=== PATIENT | female | born 1960 | race Caucasian/White ===

== ENCOUNTER → 2017-09-26 08:41 | Outpatient (CLI) | payer OTHER, SELFPAY ==
[2017-09-26 09:37] LABS: Cholesterol 237 mg/dL (200); Glucose 99 mg/dL (70-110); High Density Lipoprotein 89 mg/dL; Triglycerides 105 mg/dL; Very Low Density Lipoprotein 21 mg/dL (5-40)
== END ==
PROVIDERS: Family Provider Family Medicine; PCP Family Medicine; Visit Provider Family Medicine
DX: Z13.220 Encounter for screening for lipoid disorders (principal); Z13.1 Encounter for screening for diabetes mellitus
CPT/HCPCS: 36415; 80061; 82947

== ENCOUNTER 2019-07-05 08:10 | Emergency (ER) | payer OTHER, SELFPAY ==
[2019-07-05 08:11] VITALS: BP 130/76; PULSE 83; RESP 14; TEMP 36.4; O2SAT 97; BMI 25.7
--- NOTE | 2019-07-05 08:26 | EKG12_ITS ---
Test Reason : CP Blood Pressure : / mmHG Vent. Rate : 093 BPM Atrial Rate : 093 BPM P-R Int : 132 ms QRS Dur : 084 ms QT Int : 352 ms P-R-T Axes : 064 026 023 degrees QTc Int : 437 ms Normal sinus rhythm Possible Left atrial enlargement Borderline ECG Confirmed by DILMA CRAMER, YEYO ([id number]), sound editor SAMSON PEREZ ([id number]) on 07/11/2019 2:32:51 PM Referred By: TRA Confirmed By:YEYO PERERA MD
--- NOTE | 2019-07-05 08:27 | ED.DCSUM_ITS ---
- ER Visit Summary Date of Service: 07/05/19 Chief Complaint: Left chest and back pain History of Present Illness: The patient is a 58 F who presents to the emergency department via EMS with a left-sided chest and back pain. Prehospital EKG was reviewed and was a normal sinus rhythm. Patient states that several days ago she began to have a URI. She notes that yesterday my body did not feel good. She states that she had a discomfort in her left anterior neck but not soreness. Today at approximately 0730 she was leaving for work and developed a sharp pain in her back that radiated around her side into the left breast. It is worse with movement of arm and torso, deep breathing, and palpation. It is been constant. No shortness of breath nausea vomiting or sweating. Physical Examination: Afebrile vital signs are stable Gen: Well-nourished well-developed Head: Normocephalic atraumatic Eyes: Perrl EOMI ENT: TMs clear no rhinorrhea moist mucous membranes Neck: Supple no lymphadenopathy no JVD nontender CVS: Regular rate rhythm no murmurs normal S1-S2 Respiratory: No distress clear to auscultation bilaterally left mid thoracic ribs are tender to palpation both anteriorly, posteriorly, and mid axillary. Reduces her pain Abdomen: Soft nontender nondistended normal bowel sounds no masses Back: Nontender Extremity: Nontender no edema Skin: Normal color no rash Neuro: alert orientated ?3 CN II-XII intact normal strength sensation Psych: Normal affect normal mood Test Results: EKG done in the department shows a normal sinus rhythm at a rate of 93 without ectopy or concerning features for ACS. White count is normal. Troponin is negative. D-dimer is within normal limits. Chest x-ray shows no effusion, pneumonia, obvious rib deformity and demonstrates a normal mediastinal silhouette. Emergency Department Course and Treatment: Patient received a dose of Toradol. As this is reproducible and with the above work-up I think this most likely muscular skeletal. Impression: 1. Musculoskeletal chest pain This note was generated with [employer]ver[employer] dictation software. It may contain incorrect words, spelling, and punctuation that were not noted in review of the chart prior to signing ED Disposition - Plan for ED Patient: Disposition: Home or Assisted Living Instructions: CHEST PAIN, NonCardiac Prescriptions: cycloBENZAPRine HCl [Flexeril] 10 mg PO TID PRN #15 tab PRN Reason: chest wall pain Transmission Status: Pending to [facility] Ibuprofen [Motrin] 600 mg PO Q6H PRN PRN #28 tab PRN Reason: pain Transmission Status: Pending to [facility] #30 Referrals: Mauricio Velez [Primary Care Provider] - 1 Week if not improving
[2019-07-05 08:36] LABS: Absolute Lymphocyte Count 4.46 X10^3/uL (0.83-4.51); Absolute Neutrophil Count 4.1 X10^3/uL (2.0-7.7); Basophil# 0.04 X10^3/uL; Basophil% 0.4 % (0-1); Eosinophil# 0.28 X10^3/uL; Hematocrit 43.7 % (37-47); Hemoglobin 15.5 g/dL (12.0-15.0); Lymphocyte # 4.46 X10^3/ul (4.0); Lymphocyte % 47.9 % (19-41); Mean Corp Hgb Conc 35.5 g/dL (32-36); Mean Corpuscular Hgb 35.3 pg (27.0-32.0); Mean Corpuscular Volume 99.5 fL (81-99); Mean Platelet Vol. 9.3 fl (6.2-12.0); Monocyte# 0.39 X10^3/uL; Monocyte% 4.2 % (0-10); NRBC Flagged by Analyzer 0 % (0-5); Neutrophil # 4.13 X10^3/uL (2.7-7.7); Neutrophil % 44.3 % (47-70); Platelet Count 251 K/mm3 (150-450); RBC Distribution Width CV 11.9 % (11.6-14.6); RBC Distribution Width SD 43.5 fl (35.1-43.9); Red Blood Count 4.39 M/mm3 (4.2-5.4); White Blood Count 9.3 K/mm3 (4.4-11.0)
--- NOTE | 2019-07-05 08:40 | RAD_ITS ---
STUDY: X-RAY CHEST REASON FOR EXAM: Female, 58 years old. Chest pain. TECHNIQUE: AP and lateral views of the chest. COMPARISON: None. FINDINGS: EKG electrodes are seen. Minimal increased markings at the lung bases slightly more prominent on the left side suggestive of mild bibasilar atelectasis. There is no demonstrated pleural abnormality. Normal size heart. Normal mediastinum and dawood. Normal visualized pulmonary arteries. There is atherosclerotic tortuosity of the aortic arch and descending thoracic aorta. Normal visualized thoracic spine. Normal visualized ribs, clavicles, and shoulders. There is no demonstrated abnormality of the visualized soft tissue structures of the upper abdomen. RAD/Chest PA and Lateral IMPRESSION: Mild increased markings at the lung bases suggestive of mild degree of bibasilar atelectasis. Electronically Signed: Mathew Olivarez, at 9:00 EST , Service support ,
[2019-07-05 08:47] LABS: Anion Gap 6 (5-15); BUN 12 mg/dL (7-18); BUN/Creat Ratio 13.8 RATIO (10-20); Calcium,Total 9.4 mg/dL (8.5-10.1); Chloride 107 mmol/L (98-107); Creatinine, Serum 0.87 mg/dL (0.55-1.02); EST Glomerular Filtration Rate 71 mL/min (>60); Est Glom Filt Rate - Afr Amer 85 mL/min (>60); Estimated Creatinine Clearance 52.54 ml/min; Glucose 116 mg/dL (74-106); Sodium Level 139 mmol/L (136-145)
[2019-07-05] MEDS: Ketorolac 30 MG/ML Syringe IV (08:51)
[2019-07-05 08:56] LABS: D-Dimer Quantitative (DVT/PE) < 0.27 FEU/ug/m (0.27-0.49)
[2019-07-05 10:04] VITALS: BP 137/68; PULSE 71; RESP 15; O2SAT 98
== END 2019-07-05 10:05 | disposition home or self-care (01) ==
PROVIDERS: Emergency Provider Emergency Medicine; Family Provider Family Medicine; PCP Family Medicine
DX: R07.89 Other chest pain (principal); M54.9 Dorsalgia, unspecified; J34.89 Other specified disorders of nose and nasal sinuses; R05 Cough; Z72.0 Tobacco use
CPT/HCPCS: 36415; 71046; 80048; 84484; 85025; 85379; 93005; 96374; 99285

== ENCOUNTER → 2023-03-23 | Outpatient (CLI) | payer OTHER, SELFPAY ==
[2023-03-23 13:10] LABS: ALB/GLOB Ratio 1.2 RATIO (0.9-2.4); AST(SGOT) 33 U/L (15-37); Alanine Aminotransfer ALT/SGPT 38 U/L (13-56); Albumin, Serum 4.2 g/dL (3.2-5.0); Alkaline Phosphatase 84 U/L (45-117); Anion Gap 5 (5-15); BUN 11 mg/dL (7-18); BUN/Creat Ratio 10.7 RATIO (10-20); Calcium,Total 10.2 mg/dL (8.5-10.1); Chloride 101 mmol/L (98-107); Creatinine, Serum 1.03 mg/dL (0.55-1.02); EST Glomerular Filtration Rate 57 mL/min (>60); Est Glom Filt Rate - Afr Amer 70 mL/min (>60); Globulin 3.4 g/dL (2.2-4.2); Glucose 102 mg/dL (74-106); Potassium 4.1 mmol/L (3.5-5.1); Protein, Total 7.6 g/dL (6.4-8.2); Sodium Level 134 mmol/L (136-145)
== END | disposition home or self-care (01) ==
LOC: BFHLAB 09:59
PROVIDERS: PCP Nurse Practitioner Family; Referring Provider Nurse Practitioner Family; Visit Provider Nurse Practitioner Family
DX: I10 Essential (primary) hypertension (principal)
CPT/HCPCS: 36415; 80053

== ENCOUNTER → 2023-04-27 | Outpatient (CLI) | payer OTHER, SELFPAY ==
[2023-04-27 18:07] LABS: Thyroid Stim Hormone (TSH) 1.93 uIU/mL (0.358-3.74)
== END | disposition home or self-care (01) ==
LOC: BFHLAB 16:30
PROVIDERS: PCP Nurse Practitioner Family; Referring Provider Nurse Practitioner Family; Visit Provider Nurse Practitioner Family
DX: Z13.29 Encounter for screening for other suspected endocrine disorder (principal)
CPT/HCPCS: 36415; 84439; 84443

== ENCOUNTER → 2024-01-28 | Outpatient (CLI) | payer OTHER, SELFPAY ==
[2024-01-28 17:51] LABS: Absolute Lymphocyte Count 4.24 X10^3/uL (0.83-4.51); Absolute Neutrophil Count 3.4 X10^3/uL (2.0-7.7); Basophil# 0.02 X10^3/uL; Basophil% 0.2 % (0-1); Eosinophil# 0.14 X10^3/uL; Eosinophils% 1.7 % (0-5); Hematocrit 36.1 % (37-47); Hemoglobin 12.3 g/dL (12.0-15.0); Lymphocyte # 4.24 X10^3/ul (0.83-4.51); Lymphocyte % 50.3 % (19-41); Mean Corp Hgb Conc 34.1 g/dL (32-36); Mean Corpuscular Volume 111.4 fL (81-99); Mean Platelet Vol. 9.8 fl (6.2-12.0); Monocyte# 0.59 X10^3/uL; NRBC Flagged by Analyzer 0 % (0-5); Neutrophil # 3.42 X10^3/uL (2.7-7.7); Neutrophil % 40.6 % (47-70); Platelet Count 221 K/mm3 (150-450); RBC Distribution Width CV 12.6 % (11.6-14.6); RBC Distribution Width SD 51.9 fl (35.1-43.9); Red Blood Count 3.24 M/mm3 (4.2-5.4); White Blood Count 8.4 K/mm3 (4.4-11.0)
[2024-01-28 18:13] LABS: ALB/GLOB Ratio 1.2 RATIO (0.9-2.4); AST(SGOT) 27 U/L (15-37); Alanine Aminotransfer ALT/SGPT 26 U/L (13-56); Albumin, Serum 3.7 g/dL (3.2-5.0); Alkaline Phosphatase 65 U/L (45-117); Anion Gap 6 (5-15); BUN 16 mg/dL (7-18); Chloride 105 mmol/L (98-107); Creatinine, Serum 1.14 mg/dL (0.55-1.02); EST Glomerular Filtration Rate 51 mL/min (>60); Est Glom Filt Rate - Afr Amer 62 mL/min (>60); Ferritin 277 ng/mL (8-252); Globulin 3.1 g/dL (2.2-4.2); Glucose 88 mg/dL (74-106); Iron 110 ug/dL (50-170); Protein, Total 6.8 g/dL (6.4-8.2); Sodium Level 139 mmol/L (136-145); T4 Free Direct 0.71 ng/dL (0.76-1.46); Thyroid Stim Hormone (TSH) 1.06 uIU/mL (0.358-3.74)
[2024-01-28 18:18] LABS: Hemoglobin A1c 4.6 % (3.8-5.6)
== END | disposition home or self-care (01) ==
LOC: BFHLAB 15:06
PROVIDERS: PCP Nurse Practitioner Family; Referring Provider Nurse Practitioner Family; Visit Provider Nurse Practitioner Family
DX: I10 Essential (primary) hypertension (principal); R53.83 Other fatigue; D64.9 Anemia, unspecified
CPT/HCPCS: 36415; 80053; 82728; 83036; 83540; 84439; 84443; 85025

== ENCOUNTER → 2024-05-03 | Outpatient (CLI) | payer OTHER, SELFPAY ==
--- NOTE | 2024-05-03 06:22 | ECHOD_ITS ---
Reason For Study: PINO Procedure This was a 2D Doppler, Color Flow transthoracic echocardiogram. Exam performed in department. Left Ventricle Normal size and thickness. The left ventricular ejection fraction is 60 %. Normal diastology for age. Right Ventricle Normal right ventricle. Atria The left and right atria are normal. Mitral Valve Mild (1+) mitral valve insufficiency. Tricuspid Valve Normal pulmonary artery pressure. Trivial tricuspid valve insufficiency. Aortic Valve Trisinus/trileaflet aortic valve. Pulmonic Valve The pulmonic valve is not well visualized. Great Vessels Normal sized aortic root. Pericardium/Pleural No pericardial effusion. Epicardial fat. MMode/2D Measurements & Calculations LVIDd: 4.6 cm IVSd: 0.89 cm LVOT diam: 2.0 cm LVIDs: 3.7 cm LVPWd: 0.66 cm LVOT area: 3.2 cm2 RVDd: 2.5 cm FS: 20.0 % Ao root diam: 2.7 cm LAV(MOD-bp): 31.1 ml LVAd ap4: 23.8 cm2 LA dimension: 3.0 cm LAV(MOD-bp) Indexed: 20.1 ml/m2 LVLd ap4: 7.0 cm LAV(MOD-sp2): 43.2 ml EDV(MOD-sp4): 66.6 ml LAV(MOD-sp4): 23.9 ml EDV(sp4-el): 68.7 ml LVAs ap4: 16.0 cm2 LVLs ap4: 6.4 cm ESV(MOD-sp4): 34.7 ml ESV(sp4-el): 34.2 ml EF(MOD-sp4): 48.0 % EF(sp4-el): 50.2 % SV(MOD-sp4): 32.0 ml SV(sp4-el): 34.5 ml LA A4 area: 11.2 cm2 RA A4 area: 9.8 cm2 TAPSE: 1.6 cm Time Measurements MV dec time: 0.23 sec Doppler Measurements & Calculations MV E max francis: 54.9 cm/sec Lat Peak E' Francis: 7.2 cm/sec Med Peak E' Francis: 7.1 cm/sec MV A max francis: 66.3 cm/sec E/E' lat: 7.6 E/E' med: 7.7 MV E/A: 0.83 MV V2 max: 74.1 cm/sec MV P1/2t max francis: 69.5 cm/sec Ao V2 max: 97.8 cm/sec MV max P.2 mmHg MV P1/2t: 71.8 msec Ao max P.8 mmHg MV V2 mean: 37.4 cm/sec Ao V2 mean: 74.2 cm/sec MV mean P.68 mmHg MV dec slope: 283.6 cm/sec2 Ao mean P.4 mmHg MV V2 VTI: 29.1 cm MVA(P1/2t): 3.1 cm2 Ao V2 VTI: 21.8 cm AV (velocity ratio): 0.82 MVA(VTI): 2.0 cm2 AMIE(I,D): 2.6 cm2 AMIE(V,D): 2.5 cm2 LV V1 max: 75.4 cm/sec MR max francis: 587.7 cm/sec SV(LVOT): 57.1 ml LV V1 max P.3 mmHg MR max P.1 mmHg LV V1 mean P.4 mmHg LV V1 mean: 55.6 cm/sec LV V1 VTI: 17.8 cm PA V2 max: 54.0 cm/sec TR max francis: 198.6 cm/sec PA max PG (full): 0.74 mmHg TR max P.8 mmHg ECHO/Echo Complete Interpretation Summary The left ventricular ejection fraction is 60 %. Mild (1+) mitral valve insufficiency. Ordering Physician: Ish Reyes Referring Physician: Ish Reyes Performed By: Benito Lara and Student
--- NOTE | 2024-05-03 12:29 | STRESSREP_ITS ---
Stress Test Report Date: 05/03/2024 Procedure: Exercise tolerance test/imaging study Indications: Dyspnea on exertion Consent: Per the patient Procedure: The patient exercised on a Woo protocol for 3 minutes and 42 seconds achieving a peak heart rate of 129 bpm (82% predicted maximal heart rate) with a peak blood pressure 160/82 mmHg and a peak MET capacity of 6.2 METs. The baseline ECG demonstrated sinus rhythm. The peak exercise ECG demonstrated sinus tachycardia with no ischemic changes. Rare PVC was noted. The functional capacity was considered suboptimal. There was no complaints of chest discomfort during exercise or recovery. The examination was discontinued secondary to overall tiredness and inability to keep up with the treadmill. The patient was injected with 11.5 mCi of technetium 99m Cardiolite and subsequently rest SPECT Cardiolite nuclear imaging was obtained in the horizontal long, vertical long, and short axis views. Post-exercise, the patient was injected with 33.9 mCi of technetium 99m Cardiolite and subsequently stress SPECT Cardiolite nuclear imaging was obtained in the horizontal long, vertical long, and short axis views. A gated Cardiolite study at peak stress was obtained. Rest and stress SPECT Cardiolite nuclear imaging status post realignment, normalization, and attenuation correction, demonstrates the appearance of relative uniform tracer uptake and myocardial perfusion appearing within normal limits. There is end systolic thickening and brightening. The gated Cardiolite study demonstrates myocardial thickening and inward wall motion. The reported LVEF is 69%. Impression: 1. Technically adequate exercise stress test at 82% of maximal predicted heart rate. Functional capacity consider below average. 2. Peak exercise ECG with no ischemic changes. Appropriate blood pressure response to exercise. 3. No significant cardiac dysrhythmias noted. Isolated PVC with exercise. 4. Rest and stress SPECT Cardiolite nuclear imaging demonstrate relative uniform tracer uptake and myocardial perfusion appearing within normal limits. 5. The gated Cardiolite study reports an LVEF of 69%. This note was generated with [employer] software. It may contain incorrect words, spelling, and punctuation that were not noted in checking the note before signing.
== END | disposition home or self-care (01) ==
PROVIDERS: PCP Nurse Practitioner Family; Referring Provider Internal Medicine Cardiovascular Disease; Visit Provider Internal Medicine Cardiovascular Disease
DX: R06.02 Shortness of breath (principal); I10 Essential (primary) hypertension; R53.83 Other fatigue; F17.200 Nicotine dependence, unspecified, uncomplicated
CPT/HCPCS: 78452; 93017; 93306; A9500; A4216

== ENCOUNTER → 2024-10-24 | Outpatient (CLI) | payer MEDICARE, SELFPAY ==
[2024-10-24 13:08] LABS: Absolute Lymphocyte Count 5.73 X10^3/uL (0.83-4.51); Absolute Neutrophil Count 2.9 X10^3/uL (2.0-7.7); Basophil# 0.03 X10^3/uL; Basophil% 0.3 % (0-1); Eosinophils% 3.2 % (0-5); Hematocrit 31.1 % (37-47); Hemoglobin 11.1 g/dL (12.0-15.0); Lymphocyte # 5.73 X10^3/ul (0.83-4.51); Lymphocyte % 60.7 % (19-41); Mean Corp Hgb Conc 35.7 g/dL (32-36); Mean Corpuscular Hgb 39.4 pg (27.0-32.0); Mean Corpuscular Volume 110.3 fL (81-99); Mean Platelet Vol. 9.8 fl (6.2-12.0); Monocyte# 0.47 X10^3/uL; NRBC Flagged by Analyzer 0 % (0-5); Neutrophil # 2.88 X10^3/uL (2.7-7.7); Neutrophil % 30.5 % (47-70); POSITIVE DIFFERENTIAL YES; POSITIVE MORPHOLOGY YES; Platelet Count 203 K/mm3 (150-450); Red Blood Count 2.82 M/mm3 (4.2-5.4); White Blood Count 9.4 K/mm3 (4.4-11.0)
[2024-10-24 13:23] LABS: Differential Indicated SCAN CRITERIA MET
[2024-10-24 19:02] LABS: ALB/GLOB Ratio 1.7 RATIO (0.9-2.4); AST(SGOT) 143 U/L (<=31); Alanine Aminotransfer ALT/SGPT 125 U/L (<=34); Albumin, Serum 4.1 g/dL (3.4-4.8); Alkaline Phosphatase 82 U/L (35-104); Anion Gap 14 (5-15); BUN 9 mg/dL (4-19); BUN/Creat Ratio 7.4 RATIO (10-20); Calcium 9.6 mg/dL (7.6-11.0); Carbon Dioxide 22.1 mmol/L (22.0-29.0); Chloride 95 mmol/L (96-108); Creatinine, Serum 1.2 mg/dL (0.6-1.0); EST Glomerular Filtration Rate 52 (>60); Globulin 2.4 g/dL (2.2-4.2); Glucose 92 mg/dL (70-99); Potassium 4.2 mmol/L (3.3-5.1); Protein, Total 6.5 g/dL (5.9-8.4); Sodium Level 131 mmol/L (133-145); Total Bilirubin 0.26 mg/dL (0.00-1.30)
== END | disposition home or self-care (01) ==
LOC: BFHLAB 09:52
PROVIDERS: PCP Nurse Practitioner Family; Visit Provider Nurse Practitioner Family
DX: R10.11 Right upper quadrant pain (principal); I10 Essential (primary) hypertension
CPT/HCPCS: 36415; 80053; 85025

== ENCOUNTER → 2024-10-24 | Outpatient (CLI) | payer MEDICARE, SELFPAY | END | disposition home or self-care (01) | PROVIDERS: PCP Nurse Practitioner Family; Visit Provider Nurse Practitioner Family | DX: R19.7 Diarrhea, unspecified (principal) | CPT/HCPCS: 83630; 87177; 87209; 87493; 87506 ==

== ENCOUNTER → 2024-10-25 | Outpatient (CLI) | payer MEDICARE, SELFPAY | END | disposition home or self-care (01) | LOC: LABSPEC 09:26 | PROVIDERS: PCP Nurse Practitioner Family; Visit Provider Nurse Practitioner Family | DX: R19.7 Diarrhea, unspecified (principal) ==

== ENCOUNTER → 2024-10-30 | Outpatient (CLI) | payer MEDICARE, SELFPAY ==
--- NOTE | 2024-10-30 08:41 | US_ITS ---
EXAM: US Abdomen Limited, Right Upper Quadrant CLINICAL INDICATION: TECHNIQUE: Real-time ultrasound of the right upper quadrant with image documentation. COMPARISON: No relevant prior studies available. FINDINGS: LIVER: Ill-defined echogenic lesion of the left liver measuring 2.9 x 4.4 x 2.0 cm could be a cavernous hemangioma. Further evaluation with MRI or CT with contrast using liver mass protocol is recommended. Liver measures up to 13.8 cm. Fatty infiltration of the liver. No intrahepatic bile duct dilation. GALLBLADDER: Unremarkable. No gallstones. COMMON BILE DUCT: Unremarkable as visualized. No stones. No dilation. Common bile duct measures 0.42 cm in diameter. PANCREAS: Unremarkable as visualized. RIGHT KIDNEY: Right renal cyst measuring up to 0.9 cm. No stones. No hydronephrosis. The right kidney measures 9.9 x 5.3 x 4.7 cm. US/Abdomen Limited IMPRESSION: 1. Ill-defined echogenic lesion of the left liver measuring 2.9 x 4.4 x 2.0 cm could be a cavernous hemangioma. Further evaluation with MRI or CT with contrast using liver mass protocol is recommende d. 2. Fatty infiltration of the liver. Reading Location: [facility]
== END | disposition home or self-care (01) ==
PROVIDERS: PCP Nurse Practitioner Family; Referring Provider Nurse Practitioner Family; Visit Provider Nurse Practitioner Family
DX: R10.11 Right upper quadrant pain (principal)
CPT/HCPCS: 76705

== ENCOUNTER → 2024-11-24 | Outpatient (CLI) | payer MEDICARE, SELFPAY ==
--- NOTE | 2024-11-24 13:10 | CT_ITS ---
PROCEDURE: ABDOMEN W/WO IV CONTRAST 11/24/2024 REASON FOR EXAM: LIVER DISEASE TECHNIQUE: Abdomen CT without and with intravenous contrast. Postcontrast images were obtained in the arterial and portal venous phase. Coronal and Sagittal reconstruction series were provided. One or more dose reduction techniques were used (e.g., Automated exposure control, adjustment of the mA and/or kV according to patient size, use of iterative reconstruction technique. COMPARISON: 10/30/2024 FINDINGS: Lower chest: Unremarkable. Liver: There is a focal area of steatosis in the left hepatic lobe, corresponding to the abnormality seen on the previous ultrasound. There is a punctate cyst in the right hepatic lobe measuring 5 mm. Biliary/gallbladder: Unremarkable. Pancreas: Unremarkable. Spleen: Unremarkable. Adrenal glands: Unremarkable. Kidneys: There is an irregular hypodense lesion at the upper pole of the left kidney measuring 9.4 x 9.4 x 17.4 mm. A tiny cyst is present in the upper pole of the right kidney measuring 7 mm. Gastrointestinal/peritoneum: No acute abnormality.Mild colonic diverticulosis is present.The appendix is unremarkable.No free air or free fluid. Vascular: Unremarkable. Lymph nodes: No enlarged lymph nodes by CT size criteria. Bones: Unremarkable. Soft tissues: Unremarkable. CT/Abdomen W/WO IV Contrast IMPRESSION: 1. Focal steatosis in the left hepatic lobe, corresponds to the abnormality see n on the previous ultrasound. 2. Irregular cystic lesion in the upper pole of the left kidney. A follow-up m ulti phase CT or MRI is recommended in 6 months. Reading Location: [facility]
== END | disposition home or self-care (01) ==
LOC: CT 13:06
PROVIDERS: PCP Nurse Practitioner Family; Referring Provider Nurse Practitioner Family; Visit Provider Nurse Practitioner Family
DX: K76.9 Liver disease, unspecified (principal)
CPT/HCPCS: 74170; Q9967

== ENCOUNTER → 2024-12-04 | Outpatient (CLI) | payer MEDICARE, SELFPAY ==
[2024-12-04 10:37] LABS: Absolute Lymphocyte Count 4.63 X10^3/uL (0.83-4.51); Absolute Neutrophil Count 1.9 X10^3/uL (2.0-7.7); Basophil# 0.04 X10^3/uL; Basophil% 0.6 % (0-1); Eosinophil# 0.21 X10^3/uL; Hematocrit 32.5 % (37-47); Hemoglobin 11.6 g/dL (12.0-15.0); Lymphocyte # 4.63 X10^3/ul (0.83-4.51); Lymphocyte % 65.4 % (19-41); Mean Corp Hgb Conc 35.7 g/dL (32-36); Mean Corpuscular Hgb 39.9 pg (27.0-32.0); Mean Corpuscular Volume 111.7 fL (81-99); Mean Platelet Vol. 9.1 fl (6.2-12.0); Monocyte# 0.29 X10^3/uL; Monocyte% 4.1 % (0-10); NRBC Flagged by Analyzer 0 % (0-5); Neutrophil # 1.89 X10^3/uL (2.7-7.7); Neutrophil % 26.6 % (47-70); Platelet Count 202 K/mm3 (150-450); RBC Distribution Width CV 12.7 % (11.6-14.6); RBC Distribution Width SD 52.1 fl (35.1-43.9); Red Blood Count 2.91 M/mm3 (4.2-5.4); White Blood Count 7.1 K/mm3 (4.4-11.0)
[2024-12-04 11:38] LABS: EST Glomerular Filtration Rate 60 (>60); Hepatitis B Surface Antibody REAC; Hepatitis B Surface Antigen Nonreactive (Nonreactive); Hepatitis C Antibody Nonreactive (Nonreactive); Vitamin B12 530 pg/mL (180-914)
[2024-12-04 11:40] LABS: ALB/GLOB Ratio 1.9 RATIO (0.9-2.4); AST(SGOT) 69 U/L (<=31); Alanine Aminotransfer ALT/SGPT 66 U/L (<=34); Albumin, Serum 4.2 g/dL (3.4-4.8); Alkaline Phosphatase 76 U/L (35-104); Anion Gap 13 (5-15); BUN 12 mg/dL (4-19); BUN/Creat Ratio 11.4 RATIO (10-20); Calcium,Total 9.5 mg/dL (7.6-11.0); Carbon Dioxide 22.5 mmol/L (21.0-32.0); Chloride 105 mmol/L (98-108); Creatinine, Serum 1.09 mg/dL (0.70-1.20); Globulin 2.3 g/dL (2.2-4.2); Glucose 77 mg/dL (70-99); Magnesium 2.2 mg/dL (1.5-2.2); Potassium 4.5 mmol/L (3.3-5.1); Protein, Total 6.5 g/dL (5.9-8.4); Sodium Level 140 mmol/L (133-145)
[2024-12-04 17:35] LABS: Platelet Count 218 K/mm3 (150-450); RET-HE 39.4 pg (30-35); Reticulocyte Count 3.49 % (0.5-1.5)
[2024-12-05 06:07] LABS: Hepatitis A AB, Total Negative (Negative); Hepatitis B Core Ab Total Negative (Negative)
== END | disposition home or self-care (01) ==
PROVIDERS: PCP Nurse Practitioner Family; Referring Provider Nurse Practitioner Acute Care; Visit Provider Nurse Practitioner Acute Care
DX: K76.0 Fatty (change of) liver, not elsewhere classified (principal); R10.11 Right upper quadrant pain; R74.01 Elevation of levels of liver transaminase levels; D64.9 Anemia, unspecified; E87.1 Hypo-osmolality and hyponatremia
CPT/HCPCS: 80053; 82607; 83735; 85025; 85045; 86704; 86706; 86708; 86803; 87340

== ENCOUNTER → 2024-12-27 | Outpatient (CLI) | payer MEDICARE, SELFPAY ==
[2024-12-27 16:27] LABS: FOLATES,SERUM (FOLIC ACID) 2.18 ng/mL (4.60-34.80)
== END | disposition home or self-care (01) ==
LOC: LAB 13:22
PROVIDERS: PCP Nurse Practitioner Family; Referring Provider Nurse Practitioner Acute Care; Visit Provider Nurse Practitioner Acute Care
DX: D53.9 Nutritional anemia, unspecified (principal); R74.01 Elevation of levels of liver transaminase levels
CPT/HCPCS: 36415; 82746

== ENCOUNTER → 2025-01-24 | Outpatient (CLI) | payer MEDICARE, SELFPAY ==
--- NOTE | 2025-01-24 15:22 | VDLE_ITS ---
Reason For Study Reason For Study: Swelling RIGHT LEFT CFV is compressible, spontaneous, phasic, competent GSV is normal. and demonstrates normal augmentation. CFV is compressible, spontaneous, phasic, competent, Procedure and demonstrates normal augmentation. This is a venous duplex using B-mode, color flow and FV is compressible, spontaneous, phasic, competent spectral Doppler. and demonstrates normal augmentation. Exam performed in department. POP V is compressible, spontaneous, phasic, competent A preliminary report was called and/or faxed to [facility] and demonstrates normal augmentation. RN. T/P Trunk is compressible. PTV is compressible. LT PerV is compressible. VL/Venous Duplex US, Unilateral Interpretation Summary Deep veins of the left lower extremity are patent and compressible segmentally. There is no evidence of left lower extremity deep vein thrombosis. Valvular competence appears intact within the p roximal deep venous system on the left . The left great saphenous vein appears patent and compressible segmentally. The right common femoral vein is patent and compressible . Ordering Physician: Ish Reyes Referring Physician: Blanka Recio Performed By: Lizet Khan RVT
== END | disposition home or self-care (01) ==
LOC: CVS 15:21
PROVIDERS: PCP Nurse Practitioner Family; Referring Provider Internal Medicine Cardiovascular Disease; Visit Provider Internal Medicine Cardiovascular Disease
DX: M79.89 Other specified soft tissue disorders (principal); I34.0 Nonrheumatic mitral (valve) insufficiency
CPT/HCPCS: 93971

== ENCOUNTER 2025-04-23 17:14 | Inpatient (IN) | payer MEDICARE, SELFPAY ==
[2025-04-23] VITALS (7 sets, daily range): BP systolic 101–150; BP diastolic 63–94; PULSE 74–87; RESP 15–18; TEMP 36–37.1; O2SAT 96–98; BMI 25.6; BMI 25.4
--- NOTE | 2025-04-23 18:15 | EKG12_ITS ---
Test Reason : DYSRHYTHMIA Blood Pressure : */* mmHG Vent. Rate : 87 BPM Atrial Rate : 87 BPM P-R Int : 150 ms QRS Dur : 82 ms QT Int : 348 ms P-R-T Axes : 54 40 -17 degrees QTcB Int : 418 ms Normal sinus rhythm Nonspecific ST and T wave abnormality Abnormal ECG Confirmed by KANDY RODRIGUEZ ([id number]), editor department [facility] ([id number]) on 04/24/2025 1:05:31 PM Referred By: Confirmed By: KANDY RODRIGUEZ
--- NOTE | 2025-04-23 18:30 | CT_ITS ---
PROCEDURE: BRAIN/HEAD WITHOUT CONTRAST 04/23/2025 REASON FOR EXAM: FALL, SYNCOPE TECHNIQUE: BRAIN/HEAD WITHOUT CONTRAST Coronal and Sagittal reconstruction series were provided. One or more dose reduction techniques were used (e.g., Automated exposure control, adjustment of the mA and/or kV according to patient size, use of iterative reconstruction technique. RADIATION DOSE SUMMARY: DLP: 456 mGycm COMPARISON: none FINDINGS: There is no acute infarct, intracranial hemorrhage, or mass effect. There is no hydrocephalus or significant midline shift. minimal chronic microvascular ischemic changes. Mild parenchymal volume loss. No acute, depressed calvarial fractures. 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 No large scalp hematomas. The paranasal sinuses are clear. CT/Brain/Head without Contrast IMPRESSION: No acute intracranial process. Reading Location: [facility]
--- NOTE | 2025-04-23 18:30 | CT_ITS ---
PROCEDURE: CT SPINE CERVICAL WITHOUT CONTRAST 04/23/2025 REASON FOR EXAM: FALL TECHNIQUE: CT SPINE CERVICAL WITHOUT CONTRAST. Coronal and Sagittal reconstruction series were provided. One or more dose reduction techniques were used (e.g., Automated exposure control, adjustment of the mA and/or kV according to patient size, use of iterative reconstruction technique. RADIATION DOSE SUMMARY: DLP: 1115.69 mGycm COMPARISON: None. FINDINGS: No acute fracture or subluxation. Straightening and slight reversal of the normal cervical lordosis may be positional or degenerative in nature, or possibly related to muscle spasm. Mild multilevel spondylotic changes with varying degrees of disc space narrowing, anterior osteophytosis, uncovertebral spurring and hypertrophic facet arthropathy. No prevertebral soft tissue swelling. Mild biapical subpleural emphysema and pleural-parenchymal thickening/scarring with calcification in the upper thorax. CT/Spine Cervical without Contras IMPRESSION: No acute cervical spine fracture or subluxation. Mild spondylotic changes. Slight reversal of the cervical lordosis may be positional/degenerative or rela montez to muscle spasm. Reading Location: [id number]
[2025-04-23 18:31] LABS: Hematocrit 25.4 % (37-47); Hemoglobin 9.3 g/dL (12.0-15.0); Immature Granulocytes Count 0.020 X10^3/uL (0.0-0.0); Mean Corp Hgb Conc 36.6 g/dL (32-36); Mean Corpuscular Volume 112.9 fL (81-99); Mean Platelet Vol. 8.8 fl (6.2-12.0); NRBC Flagged by Analyzer 0 % (0-5); Platelet Count 173 K/mm3 (150-450); RBC Distribution Width CV 13.9 % (11.6-14.6); RBC Distribution Width SD 57.0 fl (35.1-43.9); Red Blood Count 2.25 M/mm3 (4.2-5.4); White Blood Count 6.2 K/mm3 (4.4-11.0)
--- OUTSIDE RECORDS SUMMARY | 2025-04-23 18:39 | XMS RPT_ITS | CCD ---
Author Organization [facility] [employer] [employer] [employer] Care Team Providers Care Associate Designer Name Role Phone AA NO PCP, NO PCP Primary Care Unavailable PARMJIT CHRISTIAN Attending Unavailabl e PARMJIT CHRISTIAN Admitting Unavailabl e Hemal DIRECTOR OF PHARMACY-C, Blanka Primary Care Provider [phone] Hemal DIRECTOR OF PHARMACY-C, Blanka Attending Provider Hemal DIRECTOR OF PHARMACY-C, Blanka Referring Provider [phone] Lavell DIRECTOR OF PHARMACY-CKayla Attending Provider Lavell DIRECTOR OF PHARMACY-C, Kayla Referring Provider Eric CRAMER, Dr. Deng Attending Provider Dr. Ish Reyes MD Referring Provider Angela CRAMER, Dr. tAa Connor Attending Provider [phone] Maryuri Montano Attending Provider Hemal, Blanka Referring Unavailable Hemal, Blanka Primary Care Unavailable Friend, Nestor Attending Unavailable Hemal, Blanka Primary Care Unavailable Kayla Monte Attending Unavailable Hemal, Blanka Referring Unavailable Hemal, Blanka Referring Unavailable Hemal, Blanka Primary Care Unavailable Ish Reyes Attending Unavailable Hemal, Blanka Primary Care Unavailable Eric, Ish Referring Unavailable Maryuri Salmon Attending Unavailable Hemal, Blanka Primary Care Unavailable Hemal, Blanka Referring Unavailable Eric, Ish Attending Unavailable Hemal, Blanka Primary Care Unavailable Kayla Monte Referring Unavailable Kayla Monte Attending Unavailable Hemal, Blanka Primary Care Unavailable Kayla Monte Attending Unavailable Kayla Monte Referring Unavailable Hemal, Blanka Primary Care Unavailable Hemal, Blanka Referring Unavailable Eric, Ish Attending Unavailable Hemal, Blanka Attending Unavailable Hemal, Blanka Primary Care Unavailable Hemal, Blanka Attending Unavailable Hemal, Blanka Primary Care Unavailable Hemal, Blanka Attending Unavailable Hemal, Blanka Primary Care Unavailable Hemal, Blanka Primary Care Unavailable Eric, Ish Referring Unavailable Eric, Ish Attending Unavailable Hemal, Blanka Primary Care Unavailable Eric, Ish Attending Unavailable Hemal, Blanka Primary Care Unavailable Hemal, Blanka Referring Unavailable Eric, Ish Attending Unavailable Hemal, Blanka Primary Care Unavailable Eric, Ish Referring Unavailable Eric, Ish Attending Unavailable Hemal, Blanka Primary Care Unavailable Hemal, Blanka Attending Unavailable Hemal, Blanka Referring Unavailable Hemal, Blanka Primary Care Unavailable Hemal, Blanka Attending Unavailable Hemal, Blanka Referring Unavailable Hemal, Blanka Primary Care Unavailable Hemal, Blanka Attending Unavailable Hemal, Blanka Referring Unavailable Allergies Allergy Classification Reported Allergen(s) Allergy Type Date of Onset Reaction(s) Facility (10 sources) Sulfonamides (Antibiotic) Allergy to substance 9 Rash [facility] (1 source) Sulfonamides (Antibiotic) Drug allergy (disorder) 5 [facility] Repository (1 source) vaccine adjuvant system, AS01B liposomal Drug allergy (disorder) 5 [facility] Repository Medications Current Medications Medication Drug Class(es) Dates Sig (Normalized) Sig (Original) ALPRAZolam 0.5 mg oral tablet (13 sources) Benzodiazepine Start: 03-01-2024 End: 12-04-2024 take 2 tablets by mouth twice daily Alprazolam 0.5 mg tablet Active 1 mg PO TWICE A DAY December 04, 2024 7:14am carvedilol 6.25 mg oral tablet (18 sources) alpha-Adrenergic Azalea, beta-Adrenergic Azalea Start: 05-16-2024 take 1 tablet by mouth twice daily at mealtime Carvedilol 6.25 mg tablet Active 6.25 mg PO TWICE A DAY 60 May 16, 2024 12:00am must administer with a meal/food: this is a dose increase Start: 05-05-2024 End: 05-16-2024 take 1 tablet by mouth twice daily at mealtime Carvedilol 3.125 mg tablet Discontinued 3.125 mg PO TWICE A DAY 60 May 05, 2024 12:00am May 16, 2024 8:07am must administer with a meal/food citalopram 10 mg oral tablet (9 sources) Serotonin Reuptake Inhibitor Start: 03-01-2024 take 1 tablet by mouth once daily Citalopram 10 mg tablet Active 10 mg PO DAILY March 01, 2024 12:00am ondansetron 4 mg oral tablet (15 sources) Serotonin-3 Receptor Antagonist Start: 12-04-2024 End: 02-13-2025 take 2 tablets by mouth every two hours as needed, then take 1 tablet by mouth every four hours as needed Ondansetron Hcl 4 mg tablet Active 4 mg PO .COMPLEX 5 February 13, 2025 3:36pm 4 mg orally; take two tablets PO two hours prior to start of bowel prep and one every 4 hours as needed for N/V Start: 01-02-2015 End: 02-19-2018 take 1 tablet by mouth every eight hours as needed for nausea Ondansetron 4 MG tablet Discontinued 4 mg PO EVERY 8 HOURS NEEDED as needed for Nausea January 02, 2015 12:00am February 19, 2018 11:56am pantoprazole 40 mg delayed release oral tablet (4 sources) Proton Pump Inhibitor Start: 12-04-2024 take 1 tablet by mouth once daily 30 minutes before breakfast Pantoprazole 40 mg tablet,delayed release (DR/EC) Active 40 mg PO daily December 04, 2024 12:00am take 30 minutes before breakfast polyethylene glycol 3350 673648 mg / potassium chloride 2970 mg / sodium bicarbonate 6740 mg / sodium chloride 5860 mg / sodium sulfate 45032 mg powder for oral solution (5 sources) Osmotic Laxative Start: 12-04-2024 End: 02-13-2025 Peg 3350-Electrolytes (Golytely) 236-22.74-6.74 -5.86 gram recon soln Active 240 mL PO Q10M 3999February 13, 2025 3:36pm as directed for split dose bowel prep Completed/Discontinued Medications Medication Drug Class(es) Dates Sig (Normalized) Sig (Original) acetaminophen 325 mg / HYDROcodone bitartrate 5 mg oral tablet (10 sources) Opioid Agonist Start: 01-02-2015 End: 02-19-2018 Hydrocodone-Acetami nophen 1 TABLET tablet Discontinued 1 {tbl} PO EVERY 6 HOURS NEEDED as needed for Pain January 02, 2015 10:04pm February 19, 2018 11:56am Start: 01-02-2015 End: 02-19-2018 take 1 tablet by mouth every six hours as needed Hydrocodone-Acetaminophen Discontinued 1 TABLET PO EVERY 6 HOURS NEEDED January 02, 2015 10:04pm February 19, 2018 11:56am cyclobenzaprine hydrochloride 10 mg oral tablet (10 sources) Muscle Relaxant Start: 07-05-2019 End: 03-01-2024 take 1 tablet by mouth three times daily as needed for pain Cyclobenzaprine 10 MG tablet Discontinued 10 mg PO THREE TIMES A DAY as needed for chest wall pain July 05, 2019 10:29am March 01, 2024 4:43pm ibuprofen 600 mg oral tablet (10 sources) Nonsteroidal Anti-inflammatory Drug Start: 07-05-2019 End: 03-01-2024 take 1 tablet by mouth every six hours as needed for pain Ibuprofen 600 MG tablet Discontinued 600 mg PO EVERY 6 HOURS NEEDED as needed for pain July 05, 2019 1:00am March 01, 2024 4:43pm lisinopril 5 mg oral tablet (4 sources) Angiotensin Converting Enzyme Inhibitor Start: 12-04-2024 End: 12-04-2024 take 1 tablet by mouth once daily Lisinopril 5 mg tablet Discontinued 5 mg PO daily December 04, 2024 12:00am December 04, 2024 9:03am Problems Active Problems Problem Classification Problem Date Documented Da te Episodic/Chronic Abdominal pain (9 sources) Right upper quadrant pain; Translations: [Right upper quadrant pain] Onset: 12-04-2024 12-04-2024 Episodic Anxiety disorders (13 sources) Anxiety; Translations: [Anxiety disorder, unspecified] Onset: 01-24-2025 03-15-2024 Chronic Deficiency and other anemia (8 sources) Macrocytic anemia; Translations: [Nutritional anemia, unspecified] 12-04-2024 Episodic Deficiency and other anemia (1 source) Nutritional anemia, unspecified;
--- NOTE | 2025-04-23 18:50 | RAD_ITS ---
PROCEDURE: ELBOW MIN 3 VIEWS 04/23/2025 REASON FOR EXAM: PAIN, FALL TECHNIQUE: ELBOW MIN 3 VIEWS Laterality: FINDINGS: No evidence of acute fracture or dislocation. No elbow joint effusion. The soft tissues are unremarkable. RAD/Elbow min 3 Views IMPRESSION: No acute osseous abnormalities. Reading Location: [id number]
--- NOTE | 2025-04-23 18:50 | RAD_ITS ---
PROCEDURE: CHEST PA AND LATERAL 04/23/2025 REASON FOR EXAM: FALL TECHNIQUE: CHEST PA AND LATERAL COMPARISON: 07/05/2019. FINDINGS: The heart is normal in size. The lungs are clear. No acute osseous abnormalities. RAD/Chest PA and Lateral IMPRESSION: NO ACUTE FINDINGS. Reading Location: [id number]
--- NOTE | 2025-04-23 18:50 | RAD_ITS ---
PROCEDURE: SHOULDER MIN 2 VIEWS 04/23/2025 REASON FOR EXAM: FALL, PAIN TECHNIQUE: SHOULDER MIN 2 VIEWS Laterality: FINDINGS: Displaced left humeral neck fracture. No evidence of dislocation. The left lung apex is clear. RAD/Shoulder min 2 Views IMPRESSION: Left humeral neck fracture. Reading Location: [id number]
[2025-04-23 19:33] LABS: Anion Gap 14 (5-15); BUN 9 mg/dL (4-19); BUN/Creat Ratio 6.9 RATIO (10-20); Calcium,Total 9.6 mg/dL (7.6-11.0); Carbon Dioxide 20.5 mmol/L (21.0-32.0); Chloride 100 mmol/L (98-108); Estimated Creatinine Clearance 36.92 ml/min (50-250); Glucose 96 mg/dL (70-99); Potassium 4.3 mmol/L (3.3-5.1)
--- NOTE | 2025-04-23 19:42 | EDS_ITS ---
HPI History of Present Illness Chief Complaint: Syncope Narrative Narrative: Patient is a 64-year-old female presenting to emergency department for frequent falls. Patient has a past medical history as below. Patient states that she was started on blood pressure medication beginning of February she states starting about 3 weeks ago she began to have frequent falls. She does not think that she loses consciousness. She denies any lightheadedness or dizziness. States that she just falls. She reports that she did hit her head once. She is not on any oral anticoagulation. She denies any neck or back pain. She states over the past 2 weeks she has had 9 falls. She endorses left shoulder pain. States this is why she presented to the ED today. [facility] Medical History Wears glasses Wears partial dentures Post-menopausal History of MRSA infection Alcohol use Easy bruising PONV (postoperative nausea and vomiting) History of diverticulitis Gastric reflux Shortness of breath on exertion Smoker Leg cramps History of edema Cardiology follow-up encounter History of echocardiogram History of stress test Endophthalmitis Hypertension Depression Essential hypertension Hx of fracture of clavicle Hypotension Fatigue Nicotine dependence Hemorrhoids SOB (shortness of breath) Swelling Infected puncture wound of finger Open wound of finger with complication Home Medications ?Medication ?Instructions ?Recorded ?Last Taken ?Type citalopram 10 mg tablet 10 mg PO DAILY depression 04/23/25 09:00 History 10 mg carvedilol 6.25 mg tablet 6.25 mg PO BID #60 tabs 04/3004/23/25 09:00 Rx 6.25 mg alprazolam 0.5 mg tablet 1 mg PO BID anxiety 12/04/24 04/23/25 09:00 History 1 mg ondansetron HCl 4 mg tablet 4 mg PO .COMPLEX #5 tabs 0 02/13/25 Unknown Rx pantoprazole 40 mg tablet,delayed 40 mg PO QDAY #90 ta bs 04/23/25 04/23/25 09:00 Rx release 40 mg Allergy/AdvReac Type Severity Reaction Status Date / Time Sulfa (Sulfonamide Allergy Rash Verified 04/23/25 17:14 Antibiotics) vaccine adjuvant system, Allergy Swelling Verified 04/23/25 17:14 [id number] liposomal Family History Father Heart disease Diabetes Hypertension Mother Thyroid disorder Hypertension Grandfather Cancer Kidney Black lung Grandmother Diabetes Alzheimer's dementia Surgical History History of colonoscopy History of surgery Hx of section Hx of hysterectomy Social History Smoking Status: Light Smoker (<10/day) quit status: considering quitting alcohol intake: current alcohol intake frequency: a few times a week Alcohol type: wine substance use type: does not use caffeine: Yes Type: coffee Number of servings: 1 ROS ROS ED ROS Narrative see HPI EXAM Physical Exam Narrative Exam Narrative: Vital signs: Reviewed General: Alert and orientedx3. No acute distress HEENT: Head is normocephalic and atraumatic, sinuses nontender, pupils equal round and reactive. Nares are patent. Oropharynx and throat exams normal. Neck: Supple without lymphadenopathy nontender. No midline cervical spinal tenderness to palpation. No step-offs or deformities. Cardiovascular: Regular rate and rhythm, no murmurs. No rubs or gallops. Normal S1 and S2 Respiratory: Clear to auscultation bilaterally. No wheezes, rales, rhonchi Abdominal: Soft and nontender. Normal bowel sounds. No guarding or rebound. Nonsurgical abdomen Extremities: Tenderness to palpation of the proximal left humerus. Normal sensation over the axillary nerve. Radial pulses intact bilaterally. ROM limited of left shoulder due to pain. Some mild tenderness to palpation of the elbow. There is no tenderness to palpation of the humeral shaft, forearm, wrist or hand. Hips are stable and nontender to palpation. There is no midline thoracic or lumbar spinal tenderness to palpation. No step-offs or deformities. Skin: No rash or redness. Neurological: Cranial nerves II through XII are grossly intact. Normal strength and sensation. Normal cerebellar function The rest of the physical exam is unremarkable Const Vital Signs: 04/23/25 17:14 04/23/25 17:55 04/23/25 18:14 Temperature 96.8 F L Temperature Source Temporal Pulse Rate 86 84 Pulse Rate [Lying] Pulse Rate [Sitting (for 1 minute prior to obtaining)] Pulse Rate [Standing (for 1 minute prior to obtaining)] Respiratory Rate 15 18 Respiratory Effort Normal Non-Labored Blood Pressure 150/92 H 124/63 H Blood Pressure [Lying] Blood Pressure [Sitting (for 1 minute prior to obtaining)] Blood Pressure [Standing (for 1 minute prior to obtaining)] Blood Pressure Mean 111 83 Blood Pressure Mean [Lying] Blood Pressure Mean [Sitting (for 1 minute prior to obtaining)] Blood Pressure Mean [Standing (for 1 minute prior to obtaining)] Pulse Ox 97 97 Oxygen Delivery Method Room Air 04/23/25 19:00 04/23/25 19:03 04/23/25 20:00 Temperature 98.7 F Temperature Source Pulse Rate 82 74 Pulse Rate [Lying] 81 Pulse Rate [Sitting (for 1 minute prior to obtaining)] 87 Pulse Rate [Standing (for 1 minute prior to obtaining)] 87 Respiratory Rate 15 Respiratory Effort Blood Pressure 106/83 H 106/94 H Blood Pressure [Lying] 114/68 Blood Pressure [Sitting (for 1 minute prior to obtaining)] 120/70 Blood Pressure [Standing (for 1 minute prior to obtaining)] 130/74 H Blood Pressure Mean 90 98 Blood Pressure Mean [Lying] 83 Blood Pressure Mean [Sitting (for 1 minute prior to obtaining)] 86 Blood Pressure Mean [Standing (for 1 minute prior to obtaining)] 92 Pulse Ox 98 98 Oxygen Delivery Method Room Air MDM MDM MDM Narrative Medical decision making narrative: Patient is a 64-year-old female presenting emergency department for frequent falls. Patient was seen and examined. Vitals are stable. Patient resting bed comfortably no acute distress. Differential includes but is not limited to: Anemia, electrolyte imbalance, ACS, intracranial bleed, orthostatic hypotension, vasovagal Orthostatics negative. CBC with no leukocytosis and acute on chronic anemia of 9.3. Patient denies any bright red blood per rectum, melena, hematemesis. BMP with no significant abnormalities. EKG shows normal sinus rhythm, no ischemic changes. No ST elevation or depression. No dysrhythmia. No CP or SOB, with normal ekg do not need troponin. CT of the brain with no acute intracranial process. CT cervical spine with no acute fracture or subluxation. Chest x-ray shows no acute radiographic abnormalities. Left shoulder x-ray with a left humeral neck fracture. Left elbow x-ray is negative for any fracture or dislocation. Patient placed in a sling for humeral fracture. Again she is neurovascularly intact. Given the patient's frequent falls, 9 times in 2 weeks offered admission for further workup. She was placed on the blood pressure medication about 2 weeks before the frequent falls, I do have concern that she is becoming hypotensive which is causing her falls. Patient admitted to Dr. Cesar hospitalist for further management. Clinical impression: frequent falls proximal humeral fracture History & Record Review Discussion w/independent historian: Patient Lab Data Attestation: I reviewed the patient's lab results. Labs: Laboratory Results - last 24 hr 04/23/25 18:24 WBC 6.2 RBC 2.25 L Hgb 9.3 L Hct 25.4 L MCV 112.9 H MCH 41.3 H MCHC 36.6 H RDW Std Deviation 57.0 H RDW Coeff of Dennis 13.9 Plt Count 173 MPV 8.8 Immature Gran % (Auto) 0.300 Neut % (Auto) 44.9 L Lymph % (Auto) 47.4 H [place] % (Auto) 4.3 Eos % (Auto) 2.6 Baso % (Auto) 0.5 Absolute Neuts (auto) 2.8 Absolute Lymphs (auto) 2.95 Nucleated RBC % 0 Sodium 135 Potassium 4.3 Chloride 100 Carbon Dioxide 20.5 L Anion Gap 14 BUN 9 Creatinine 1.33 H Estim Creat Clear Calc 36.92 L Est GFR (MDRD) Non-Af 44 L BUN/Creatinine Ratio 6.9 L Glucose 96 Calcium 9.6 Radiography Chest X-Ray - ED: 2 View, Read by ED Physician, Normal, Lungs and No Acute Dise ase X-Ray: Read by ED Physician and Fracture (proximal left humeral neck fx) Diagnostic Testing: Clinical Impression(s) from Imaging Studies Brain CT 04/23/25 18:30 IMPRESSION: No acute intracranial process. Reading Location: [facility] Cervical Spine CT 04/23/25 18:30 IMPRESSION: No acute cervical spine fracture or subluxation. Mild spondylotic changes. Slight reversal of the cervical lordosis may be positional/degenerative or related to muscle spasm. Reading Location: [facility] Chest X-Ray 04/23/25 18:50 IMPRESSION: NO ACUTE FINDINGS. Reading Location: [facility] Elbow X-Ray 04/23/25 18:50 IMPRESSION: No acute osseous abnormalities. Reading Location: [facility] Shoulder X-Ray 04/23/25 18:50 IMPRESSION: Left humeral neck fracture. Reading Location: [facility] Discharge Plan Disposition Disposition: Acute Care Hospital [facility] Discharge Date/Time: 04/23/25 22:15
--- NOTE | 2025-04-23 20:17 | PCM.HP.STD ---
HPI - General General Date of Admission: 04/23/25 Date of Service: 04/23/25 Chief Complaint: Fall with fracture HPI Narrative ROSIE FRANCO, is a 64 F who presents to the emergency room with chief complaint of frequent falls. Patient has had a total of 9 falls in the last 3 weeks. Patient has reportedly had her blood pressure medication adjusted as an outpatient and since that time has had sudden dizziness and near syncope and has collapsed to the ground. Patient has hit her head at times and approximately 2 weeks ago she fell and injured her left upper arm. X-ray reveals a displaced proximal left humeral head fracture. X-ray of the left elbow was negative and C-spine and CT head are negative for acute fracture. Laboratory studies show a white blood cell count of 6.2, hemoglobin 9.3, hematocrit 25.4, platelets 173, sodium 135, potassium 4.3, chloride 100, bicarb 20.5, BUN 9, creatinine 1.3, glucose 96. Patient denies any chest pain, shortness of breath, fevers or chills, nausea vomiting or diarrhea and denies any melena or hematochezia. Left upper extremity has been placed in a sling and immobilized and I spoke with Dr. Young, orthopedic surgeon who recommended she follow-up with him as an outpatient upon discharge but there is no surgical intervention at this time. Patient will be admitted for near syncope with falling and echocardiogram and physical therapy consult obtained. [facility] Medical History Wears glasses Wears partial dentures Post-menopausal History of MRSA infection Alcohol use Easy bruising PONV (postoperative nausea and vomiting) History of diverticulitis Gastric reflux Shortness of breath on exertion Smoker Leg cramps History of edema Cardiology follow-up encounter History of echocardiogram History of stress test Endophthalmitis Hypertension Depression Essential hypertension Hx of fracture of clavicle Hypotension Fatigue Nicotine dependence Hemorrhoids SOB (shortness of breath) Swelling Infected puncture wound of finger Open wound of finger with complication Home Medications ?Medication ?Instructions ?Recorded ?Last Taken ?Type citalopram 10 mg tablet 10 mg PO DAILY 03/01/24 Unknown History carvedilol 6.25 mg tablet 6.25 mg PO BID #60 tabs 05/16/24 Unknown Rx alprazolam 0.5 mg tablet 1 mg PO BID anxiety 12/04/24 Unknown History ondansetron HCl 4 mg tablet 4 mg PO .COMPLEX #5 tabs 02/13/25 Unknown Rx peg 3350-electrolytes 236 240 ml PO Q10M #4,000 mL 02/13/25 Unknown Rx gram-22.74 gram-6.74 gram-5.86 gram solution (Golytely) pantoprazole 40 mg tablet,delayed 40 mg PO QDAY #90 tabs 04/23/25 Unknown Rx release Allergy/AdvReac Type Severity Reaction Status Date / Time Sulfa (Sulfonamide Allergy Rash Verified 04/23/25 17:14 Antibiotics) vaccine adjuvant system, Allergy Swelling Verified 04/23/25 17:14 AS01B liposomal Family History Father Heart disease Diabetes Hypertension Mother Thyroid disorder Hypertension Grandfather Cancer Kidney Black lung Grandmother Diabetes Alzheimer's dementia Surgical History History of colonoscopy History of surgery Hx of section Hx of hysterectomy Social History Smoking Status: Light Smoker (<10/day) quit status: considering quitting alcohol intake: current alcohol intake frequency: a few times a week Alcohol type: wine substance use type: does not use caffeine: Yes Type: coffee Number of servings: 1 ROS Constitutional Constitutional: Denies chills or fever(s) Eyes Eyes: Denies blurry vision ENT HEENT: Denies abnormal hearing Respiratory/Chest Respiratory/Chest: Denies cough or shortness of breath at rest Gastrointestinal Gastrointestinal: Denies abdominal pain Genitourinary Genitourinary: Denies dysuria Musculoskeletal Musculoskeletal: Reports extremity pain and stiffness; Denies back pain Integumentary Integumentary: Denies dry skin Neurologic Neurologic: Denies abnormal gait, abnormal speech or confusion Psychiatric Psychiatric: Denies anxiety Vital Signs Vital Signs Vital Signs: 04/23/25 17:14 04/23/25 17:55 04/23/25 18:14 Temperature 96.8 F L Temperature Source Temporal Pulse Rate 86 84 Pulse Rate [Lying] Pulse Rate [Sitting (for 1 minute prior to obtaining)] Pulse Rate [Standing (for 1 minute prior to obtaining)] Respiratory Rate 15 18 Respiratory Effort Normal Non-Labored Blood Pressure 150/92 H 124/63 H Blood Pressure [Lying] Blood Pressure [Sitting (for 1 minute prior to obtaining)] Blood Pressure [Standing (for 1 minute prior to obtaining)] Blood Pressure Mean 111 83 Blood Pressure Mean [Lying] Blood Pressure Mean [Sitting (for 1 minute prior to obtaining)] Blood Pressure Mean [Standing (for 1 minute prior to obtaining)] Pulse Ox 97 97 Oxygen Delivery Method Room Air 04/23/25 19:00 04/23/25 19:03 04/23/25 20:00 Temperature 98.7 F Temperature Source Pulse Rate 82 74 Pulse Rate [Lying] 81 Pulse Rate [Sitting (for 1 minute prior to obtaining)] 87 Pulse Rate [Standing (for 1 minute prior to obtaining)] 87 Respiratory Rate 15 Respiratory Effort Blood Pressure 106/83 H 106/94 H Blood Pressure [Lying] 114/68 Blood Pressure [Sitting (for 1 minute prior to obtaining)] 120/70 Blood Pressure [Standing (for 1 minute prior to obtaining)] 130/74 H Blood Pressure Mean 90 98 Blood Pressure Mean [Lying] 83 Blood Pressure Mean [Sitting (for 1 minute prior to obtaining)] 86 Blood Pressure Mean [Standing (for 1 minute prior to obtaining)] 92 Pulse Ox 98 98 Oxygen Delivery Method Room Air Weight Weight: 140 lb Body Mass Index (BMI) 25.6 Physical Exam Const alert and oriented x3 General Appearance: cooperative and well developed HEENT normocephalic Eyes PERRL and EOMs intact bilaterally Neck no lymphadenopathy Lymph Lymphatic: no lymphadenopathy noted Resp normal respiratory effort, normal air movement and clear to auscultation bilaterally Cardio regular rate, regular rhythm, S1 normal heart sound and S2 normal heart sound GI normal to inspection, nondistended, normoactive bowel sounds Extremity Extremity Narrative: Left upper extremity tenderness decreased range of motion with large contusion Skin General Skin Exam: no breakdown Neuro no focal motor deficits and no sensory deficits noted Psych thought process normal, cooperative and affect normal Results Lab / Micro Data 04/23/25 18:24 04/23/25 18:24 Labs: Laboratory Results - last 24 hr 04/23/25 18:24: WBC 6.2, RBC 2.25 L, Hgb 9.3 L, Hct 25.4 L, MCV 112.9 H, MCH 41.3 H, MCHC 36.6 H, RDW Std Deviation 57.0 H, RDW Coeff of Dennis 13.9, Plt Count 173, MPV 8.8, Immature Gran % (Auto) 0.300, Neut % (Auto) 44.9 L, Lymph % (Auto) 47.4 H, [place] % (Auto) 4.3, Eos % (Auto) 2.6, Baso % (Auto) 0.5, Absolute Neuts (auto) 2.8, Absolute Lymphs (auto) 2.95, Nucleated RBC % 0, Sodium 135, Potassium 4.3, Chloride 100, Carbon Dioxide 20.5 L, Anion Gap 14, BUN 9, Creatinine 1.33 H, Estim Creat Clear Calc 36.92 L, Est GFR (MDRD) Non-Af 44 L, BUN/Creatinine Ratio 6.9 L, Glucose 96, Calcium 9.6 Imaging Radiology Impression Brain CT 04/23/25 18:30 IMPRESSION: No acute intracranial process. Reading Location: [facility] Cervical Spine CT 04/23/25 18:30 IMPRESSION: No acute cervical spine fracture or subluxation. Mild spondylotic changes. Slight reversal of the cervical lordosis may be positional/degenerative or related to muscle spasm. Reading Location: [facility] Chest X-Ray 04/23/25 18:50 IMPRESSION: NO ACUTE FINDINGS. Reading Location: [facility] Elbow X-Ray 04/23/25 18:50 IMPRESSION: No acute osseous abnormalities. Reading Location: [facility] Shoulder X-Ray 04/23/25 18:50 IMPRESSION: Left humeral neck fracture. Reading Location: [facility] Assessment & Plan Assessment/Plan (1) Essential hypertension: (2) Near syncope: (3) Fracture of proximal end of left humerus: (4) Anemia: (5) Frequent falls: PLAN: Plan 1 frequent falls?admit patient to progressive care unit, continue telemetry, order echocardiogram in the morning, monitor blood pressure and hold blood pressure medications for now. Repeat CBC BMP in the morning. 2. Near syncope?repeated several episodes possibly due to hypotensive episodes but will obtain echocardiogram to assess cardiac function. Will consult physical therapy to assess stability and function for activities of daily living so she can be discharged safely to home 3. Fracture of proximal end of left humerus?I spoke with orthopedic surgeon who recommended patient remain in sling and follow-up with orthopedic surgeon Dr. Young as an outpatient after discharge. 4. Hypertension?monitor and hold medications for now due to near syncope and falling 5. Anemia?repeat CBC in the morning, patient denies hematochezia or melena and may have lost some blood from her fracture with large contusion in left arm. Will add some iron supplementation for now 6. CODE STATUS?patient is full code and verbalizes to me Charges/Coding Visit Charges Inpatient E&M: 78556 Init Hosp L2
--- NOTE | 2025-04-23 20:33 | ECHOD_ITS ---
Reason For Study Reason For Study: Syncope/Near Syncope Procedure This was a 2D Doppler, Color Flow transthoracic echocardiogram. Patient scanned supine due to Left Humerus fracture. Exam performed portable in patient room. Left Ventricle Normal LV size. The estimated ejection fraction is 60 %. Unable to assess diastolic function based on available data. No regional wall motion abnormalities noted. Right Ventricle Normal RV size. Normal systolic function. Atria Normal left atrium. Normal right atrium. Mitral Valve The mitral valve is structurally normal. No prolapse or stenosis seen. Trivial mitral valve insufficiency. Tricuspid Valve Normal tricuspid valve. Aortic Valve Trisinus/trileaflet aortic valve. Trivial aortic valve insufficiency. Pulmonic Valve Normal pulmonic valve. Trivial pulmonic valve insufficiency. Great Vessels Normal sized aortic root. Pericardium/Pleural Epicardial fat. No pericardial effusion. MMode/2D Measurements & Calculations LVIDd: 4.1 cm IVSd: 0.82 cm Ao root diam: 2.7 cm LVIDs: 2.7 cm LVPWd: 1.0 cm RVDd: 2.9 cm FS: 34.9 % LAV(MOD-sp4): 22.0 ml LA A4 area: 12.7 cm2 LA dimension(2D): 2.4 cm RA A4 area: 10.4 cm2 Time Measurements MV dec time: 0.20 sec Doppler Measurements & Calculations MV E max francis: 54.0 cm/sec Lat Peak E' Francis: 7.0 cm/sec Med Peak E' Francis: 7.3 cm/sec MV A max francis: 56.4 cm/sec E/E' lat: 7.7 E/E' med: 7.4 MV E/A: 0.96 MV dec slope: 269.6 cm/sec2 Ao V2 max: 108.9 cm/sec LV V1 max: 74.1 cm/sec Ao max P.7 mmHg LV V1 max P.2 mmHg Ao V2 mean: 81.0 cm/sec LV V1 mean P.0 mmHg Ao mean P.8 mmHg LV V1 mean: 46.8 cm/sec Ao V2 VTI: 24.3 cm LV V1 VTI: 14.6 cm AV (velocity ratio): 0.60 PA V2 max: 74.2 cm/sec PI end-d francis: 99.4 cm/sec ECHO/Echo Complete Interpretation Summary The estimated ejection fraction is 60 %. Structually normal valves. Compared with previous study in May 03, 2024 no significant change noted. Ordering Physician: Haile Cesar Referring Physician: Blanka Recio Performed By: Blanka Luna, HEAVEN, RVT
--- OUTSIDE RECORDS SUMMARY | 2025-04-23 22:03 | XMS RPT_ITS | CCD ---
Author Organization [facility] [place] [facility] [employer] Care Team Providers Care Senior Caregiver Name Role Phone AA NO PCP, NO PCP Primary Care Unavailable PARMJIT CHRISTIAN Attending Unavailabl e PARMJIT CHRISTIAN Admitting Unavailabl e Hemal HR SPECIALIST-C, Blanka Primary Care Provider Hemal HR SPECIALIST-C, Blanka Attending Provider Hemal HR SPECIALIST-C, Blanka Referring Provider [phone] Lavell HR SPECIALIST-CKayla Attending Provider Lavell HR SPECIALIST-C, Kayla Referring Provider Eric CRAMER, Dr. Deng Attending Provider Dr. Ish Reyes MD Referring Provider Angela CRAMER, Dr. Ata Connor Attending Provider Maryuri Montano Attending Provider Hemal, Blanka Referring [...] Sulfonamides (Antibiotic) Allergy to substance 9 Rash [facility] (1 source) Sulfonamides (Antibiotic) Drug allergy (disorder) 5 [facility] Repository (1 source) vaccine adjuvant system, AS01B liposomal Drug allergy (disorder) 5 [facility] Repository Medications Current Medications Medication Drug [...] 30 minutes before breakfast polyethylene glycol 3350 259978 mg / potassium chloride 2970 mg / sodium bicarbonate 6740 mg / sodium chloride 5860 mg / sodium sulfate 02345 mg powder for oral solution (5 sources) [...] other anemia (1 source) Nutritional anemia, unspecified; Translations: [Nutritional anemia, unspecified] Onset: 01-02-2025 Episodic Deficiency and other anemia (1 source) Anemia, unspecified; Translations: [Anemia, unspecified] Onset: 12-04-2024 Episodic Essential hypertension (13 sources) Essential hypertension; Translations: [Essential (primary) hypertension] Onset: 01-24-2025 05-31-2024 Chronic Fluid and electrolyte disorders (9 sources) Hyponatremia; Translations: [Hypo-osmolality and hyponatremia] Onset: 12-04-2024 12-04-2024 Episodic Heart valve disorders (13 sources) Mitral valve regurgitation; Translations: [Nonrheumatic mitral (valve) insufficiency] Onset: 01-24-2025 05-31-2024 Chronic Open wounds of extremities (20 sources) Open wound of finger with complication; Translations: [Unspecified open wound of unspecified finger without damage to nail, initial encounter] 11-12-2016 Episodic Other circulatory disease (9 sources) Low blood pressure; Translations: [Hypotension, unspecified] 03-01-2024 Episodic Other connective tissue disease (6 sources) Swelling of left lower limb; Translations: [Other specified soft tissue disorders] 01-24-2025 Episodic Other connective tissue disease (1 source) Other specified soft tissue disorders; Translations: [Other specified soft tissue disorders] Onset: 01-30-2025 Episodic Other liver diseases (4 sources) Lesion of liver; Translations: [Liver disease, unspecified] 12-04-2024 Chronic Other liver diseases (8 sources) Steatosis of liver; Translations: [Fatty (change of) liver, not elsewhere classified] 12-04-2024 Chronic Other liver diseases (1 source) Fatty (change of) liver, not elsewhere classified; Translations: [Fatty (change of) liver, not elsewhere classified] Onset: 12-07-2024 Chronic Other liver diseases (1 source) Liver disease, unspecified; Translations: [Liver disease, unspecified] Onset: 11-28-2024 Chronic Other liver diseases (8 sources) Elevated liver enzymes level; Translations: [High liver transaminase level] 12-04-2024 Episodic Other lower respiratory disease (9 sources) Dyspnea on exertion; Translations: [Other forms of dyspnea] 05-31-2024 Episodic Other lower respiratory disease (9 sources) Dyspnea; Translations: [Shortness of breath] 03-15-2024 Episodic Residual codes; unclassified (10 sources) Swelling; Translations: [Edema, unspecified] 11-12-2016 Episodic Substance-related disorders (13 sources) Nicotine dependence; Translations: [Nicotine dependence, unspecified, uncomplicated] Onset: 01-24-2025 03-15-2024 Chronic Unclassified (1 source) Elevation of levels of liver transaminase levels; Translations: [Elevation of levels of liver transaminase levels] Onset: 12-04-2024 Past or Other Problems Problem Classification Problem Date Documented Da te Episodic/Chronic Conditions associated with dizziness or vertigo (10 sources) Vertigo; Translations: [Dizziness and giddiness] Onset: 05-31-2024 05-31-2024 Episodic Malaise and fatigue (10 sources) Fatigue; Translations: [Other fatigue] Onset: 06-22-2024 03-01-2024 Episodic Other gastrointestinal disorders (1 source) Diarrhea, unspecified; Translations: [Diarrhea, unspecified] Onset: 11-08-2024 Episodic Other liver diseases (1 source) Abnormal levels of other serum enzymes; Translations: [Abnormal levels of other serum enzymes] Onset: 11-01-2024 Episodic Other lower respiratory disease (1 source) Other forms of dyspnea; Translations: [Other forms of dyspnea] Onset: 06-22-2024 Episodic Other lower respiratory disease (1 source) Shortness of breath; Translations: [Shortness of breath] Onset: 06-22-2024 Episodic Results Test Name Value Interpretation Reference Range Facility MR/Johnny 02-15-2025 /LOGAN [facility] Vascular Surgery [address] [place] [address] OFFICE VISIT Date of Service: 02/15/25 MR#: [id number] Acct: [id number] Name: ROSIE FRANCO Rep #: [id number] : 1960 Provider: AMISH Easton Age/Sex: 64/F Location: [facility] Status: Signed Intake Vital Signs 01/24/25 14:40 02/15/25 09:01 Height 5 ft 1 in Weight: 140 lb 141 lb BMI 26.4 BP 123/74 H 141/77 H Blood Pressure Location Lt brachial Lt brachial Position Sitting Sitting Respiration 16 16 Pulse 80 69 Pulse Source NIBP Monitor Temp 97.8 F Temp Source Temporal Pulse Oximetry (%) 96 Oxygen Delivery Method room air Intake Visit Reasons: Swelling in BLE L>R Chief Complaint: establish care Is patient in pain?: Yes Allergies Sulfa (Sulfonamide Antibiotics) Allergy (Verified 02/15/25 09:03) Rash Medications ???Medication ???Instructions ???Recorded ???Confirmed ???Type citalopram 10 mg tablet 10 mg PO DAILY 03/01/24 02/15/25 H istory carvedilol 6.25 mg tablet 6.25 mg PO BID #60 tabs 05/16/24 0 02/15/25 Rx alprazolam 0.5 mg tablet 1 mg PO BID anxiety 12/04/2402/15 History pantoprazole 40 mg tablet,delayed 40 mg PO QDAY #90 tabs 12/04/24 0 02/15/25 Rx release ondansetron HCl 4 mg tablet 4 mg PO .COMPLEX #5 tabs 02/13/25 02/15/25 Rx peg 3350-electrolytes 236 240 ml PO Q10M #4,000 mL 02/13/25 02/15/25 Rx gram-22.74 gram-6.74 gram-5.86 gram solution (Golytely) Is last menstrual period known: No Post menopausal: Yes Patient : No Have you fallen in the past year?: Yes PFSH Medical History Endophthalmitis Hypertension Depression Essential hypertension Hx of fracture of clavicle Hypotension Fatigue Nicotine dependence Open wound of finger with complication Infected puncture wound of finger Swelling Hemorrhoids SOB (shortness of breath) Surgical History Hx of section Hx of hysterectomy Family History Father Heart disease Diabetes Hypertension Mother Thyroid disorder Hypertension Grandfather Cancer Kidney Black lung Grandmother Diabetes Alzheimer's dementia Social History (Updated 02/15/25 @ 09:01 by Veronica Marie) Smoking Status: Light Smoker (<10/day) quit status: considering quitting alcohol intake: current alcohol intake frequency: a few times a week Alcohol type: wine substance use type: does not use caffeine: Yes Type: coffee Number of servings: 1 HPI HPI HPI: ROSIE FRANCO, is a 64 F who presents to the office today for evaluation of a 2-3 week history of L ankle swelling and frequent falls. She has been seen by cardiology and had a recent echocardiogram which revealed no significant abnormalities and her swelling is not felt to be cardiogenic. She has had a venous duplex which was negative for DVT though did not assess for reflux. She has discussed with GI and it is not felt to be related to her liver disease either. She reports this swelling started 3 weeks ago after a fall, she reports she did not trip and does not recall hitting her ankle in the fall, she fell backwards from standing. She reports since then she has fallen 5 additional times, similarly by her report either falling forward or backward from standing. She reports in no case did she trip. She reports no pre-empting symptoms such as vision darkening or other vision changes, lightheadedness, dizziness, palpitations, chest pain. She reports no loss of consciousness with any of her falls. She reports she has hit her head, but was not evaluated immediately after the falls. She denies any new/persistent headaches, urinary incontinence, . She does report feeling unsteady with ambulation. She does report tingling in her bilateral feet but denies numbness. She reports some cramping/burning in her calves with walking. As for the swelling, she admits it has been improving over these last 3 weeks. ROS General General: Yes weight change, fatigue and weakness; No appetite, colon cancer or breast cancer HEENT HEENT: No difficulty swallowing, eye injury, eye surgery, swollen glands or hoarseness Endo Endocrine: No thyroid disease, diabetes mellitus, thyroid cancer, Hair loss, heat intolerance or cold intolerance Skin Skin: No rash or changing moles Musc Musculoskeletal: Yes back problems; No arthritis, rheumatoid arthritis, gout or joint pain Cardio Cardiovascular: Yes high blood pressure; No murmur, pacemaker, heart disease, atrial fibrillation, heart attack, heart stent, palpitations, shortness of breath with exertion or chest pain Psych Psychiatric: Yes depression and anxiety; No hearing voice (more content not included)... Normal [facility] MR/PATChauncey 02-15-2025 MR/PAT.[facility] Medical Records Department [address] [place] [id number] PAT - Anesthesia 02/15/25 1316 MR#: [id number] Acct: [id number] Name: ROSIE FRANCO Rep #: [id number] : 1960 64 From: Samir Mccabe MD PCP: CATRINA Mcmahan Status:PRE SDC Y Race: C Location: EN Pre-Assessment Diagnosis/Proposed Procedure Planned Operative Procedure(s): EGD, COLONOSCOPY Anesthesia History Anesthesia History - liquor tester: Anesthesia History - liquor tester Hx Hospitalization No 02/15/25 11:00 Any Problems With Anesthesia Yes: PONV 02/15/25 11:00 Cholinesterase deficiency No 02/15/25 11:00 You/Your Family Experience No 02/15/25 11:00 fever (hyperthermia) with Relationship Recent Exposure to Contagious Disease Does patient have nerve No 02/15/25 11:00 stimulator Patient instructed to have device shut off --Does patient have Pacemaker or ICD? When Was Last Pacemaker Check QUESTION #4 FULL TEXT: You/Your Family Experience fever (hyperthermia) with Anesthesia Last Oral Intake Last Oral intake: Last Oral Intake NPO since Meds taken in AM with sips of water? Meds patient instructed to take am of surgery PONV PONV - liquor tester: PONV - liquor tester Female Yes 02/15/25 11:00 HX of Motion Sickness No 02/15/25 11:00 HX of N/V After Surgery Yes 02/15/25 11:00 Non-Smoker No 02/15/25 11:00 Duration of Surgery greater No 02/15/25 11:00 than 60 minutes Number of Risk Factors 2 02/15/25 11:00 PONV Score Moderate Risk 02/15/25 11:00 Height Weight Height Weight: Anesthesia: Height Weight Height 5 ft 1 in 12/04/24 09:11 Respiratory Assessment Respiratory Assessment - liquor tester: Respiratory Tract Infection Hx - liquor tester Hx Respiratory Tract Infection No 02/15/25 11:00 STOP Sleep Apnea STOP Sleep Apnea - liquor tester: STOP Sleep Apnea - liquor tester Hx Hypertension Yes: PER PT, CONTROLLED ON 02/15/25 11:00 MED Hx Sleep Apnea No 02/15/25 11:00 CPAP BIPAP Do you snore loudly (louder No 02/15/25 11:00 than talking or can be heard Do you often feel tired/ No 02/15/25 11:00 fatigued/ sleepy during daytime? Has anyone observed you stop No 02/15/25 11:00 breathing during sleep? STOP Results Negative 02/15/25 11:00 QUESTION #5 FULL TEXT : Do you snore loudly (louder than talking or can be heard through closed doors)? 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 Specify any problems Hx of Preganancy in last 3 No 02/15/25 11:00 Months Nurse Filling Out Transfusion GABY 02/15/25 11:00 Questions: Date: 02/15/25 02/15/25 11:00 Time: 11:03 02/15/25 11:00 Patient unable to answer at this time (ie. confused, unrespo /Reproduction History /Reproductive History - liquor tester: /Reproductive Hx- liquor tester Hx Now No 02/15/25 11:00 Gestational Age (in weeks): EDC: Hx Hx Para Hx Section SAB No 02/15/25 11:00 [facility] Medical History (Updated 02/15/25 @ 11:13 by Lolis Don) Wears glasses Wears partial dentures Post-menopausal History of MRSA infection Alcohol use Easy bruising PONV (postoperative nausea and vomiting) History of diverticulitis Gastric reflux Shortness of breath on exertion Smoker Leg cramps History of edema Cardiology follow-up encounter History of echocardiogram History of stress test Endophthalmitis Hypertension Depression Essential hypertension Hx of fracture of clavicle Hypotension Fatigue Nicotine dependence Hemorrhoids SOB (shortness of breath) Swelling Infected puncture wound of finger Open wound of finger with complication Home Medications ???Medication ???Instructions ???Recorded ???Last Taken ???Type citalopram 10 mg tablet 10 mg PO DAILY 03/01/24 Unknown Hi story carvedilol 6.25 mg tablet 6.25 mg PO BID #60 tabs 05/16/24 U nknown Rx alprazolam 0.5 mg tablet 1 mg PO (more content not included)... Normal [facility] Cardiology Visit Reporton Cardiology Visit Report [facility] [address] [place] [address] OFFICE VISIT Date of Service: 01/24/25 MR#: [id number] Acct: [id number] Name: ROSIE FRANCO Rep #: [id number] : 1960 Provider: Dr. Ish Reyes MD Age/Sex: 64/F Location[facility] Status: Signed HPI HPI History of Present Illness Details: This lady is here for follow-up visit today. Denies any chest pains or shortness of breath. No palpitations. No orthopnea or PND. For the past 2 to 3 weeks, patient has been complaining of some swelling of her left leg and foot. Per her, she has been told by her primary care physician to see an orthopedic doctor for it. Intake Vital Signs 12/04/24 09:11 01/24/25 14:40 Height 5 ft 1 in 5 ft 1 in Weight: 139 lb 4 oz 140 lb BMI 26.3 26.4 BP 156/75 H 123/74 H Blood Pressure Location Lt brachial Position Sitting Respiration 18 16 Pulse 71 80 Pulse Source NIBP Pulse Oximetry (%) 97 Oxygen Delivery Method room air Intake Visit Reasons: 3 M [employer] Department Supervisor Required: No Accompanied by: Self Is patient in pain?: No Allergies Sulfa (Sulfonamide Antibiotics) Allergy (Verified 01/24/25 14:40) Rash Medications ???Medication ???Instructions ???Recorded ???Confirmed ???Type citalopram 10 mg tablet 10 mg PO DAILY 03/01/24 01/24/25 H istory carvedilol 6.25 mg tablet 6.25 mg PO BID #60 tabs 05/16/24 0 01/24/25 Rx alprazolam 0.5 mg tablet 1 mg PO BID anxiety 04/07/25 05/28 /25 History ondansetron HCl 4 mg tablet 4 mg PO .COMPLEX #5 tabs 12/04/24 01/24/25 Rx pantoprazole 40 mg tablet,delayed 40 mg PO QDAY #90 tabs 12/04/24 0 01/24/25 Rx release peg 3350-electrolytes 236 240 ml PO Q10M #4,000 mL 12/04/24 01/24/25 Rx gram-22.74 gram-6.74 gram-5.86 gram solution (Golytely) Ejection fraction %: 60 Have you fallen in the past year?: Yes (multiple; no major injuries) PFSH Medical History Endophthalmitis Hypertension Depression Essential hypertension Hx of fracture of clavicle Hypotension Fatigue Nicotine dependence Open wound of finger with complication Infected puncture wound of finger Swelling Hemorrhoids SOB (shortness of breath) Surgical History Hx of section Hx of hysterectomy Family History Father Heart disease Diabetes Hypertension Mother Thyroid disorder Hypertension Grandfather Cancer Kidney Black lung Grandmother Diabetes Alzheimer's dementia Social History Smoking Status: Current every day smoker quit status: considering quitting alcohol intake: current alcohol intake frequency: a few times a week Alcohol type: wine substance use type: does not use caffeine: Yes Type: coffee Number of servings: 1 ROS Const Const: Positive for fatigue, frequent falls and weight gain; Negative for weakness or headache(s) ENT ENT: Positive for balance problems; Negative for headache(s), dizziness or Nosebleed/epistaxis Cardio Chest Pain: No Palpitations: No Edema: Bilateral (BLE; LLE severe vs. right) Muscle aches with walking: None Resp Respiratory: Negative for SOB with activity, SOB at rest or SOB orthopnea SOB lying down GI GI: Negative nausea, vomiting or heartburn Musc Musc: Positive for balance problems; Negative for muscle aches/ myalgia, muscle weakness or joint pain Neuro Neuro: Positive for frequent falls; Negative for dizziness, lightheadedness, near syncope, syncope, headache(s) or weakness Endo Endo: Positive for fatigue Cardiology Exam Const Appearance: comfortable and no acute distress Nutritional Appearance: well nourished Neck Neck: no JVD Carotids: Negative bruit Chest Auscultation: Bilateral: Clear to Auscultation Cardio Rate: regular rate Rhythm: regular rhythm Heart sounds: S1 normal and S2 normal Neuro General: patient alert, patient awake and patient oriented x3 Extremities Lower Extremity Edema: None: Right and +1: Left Left calf mildly tender. No erythema. Supplemental Info Supplemental Information Echocardiogram 05/03/2024: Interpretation Summary The left ventricular ejection fraction is 60 %. Mild (1+) mitral valve insufficiency. Stress Test 05/03/2024: Impression: 1. Technically adequate exercise stress test at 82% of maximal predicted heart rate. Functional capacity consider below average. 2. Peak exercise ECG with no ischemic changes. Appropriate blood pressure response to exercise. 3. No significant cardiac dysrhythmias noted. Isolated PVC with exercise. 4. Rest and stress SPECT Cardiolite nuclear imaging demonstrate r (more content not included)... Normal [facility] Venous Duplex US, Unilateral on 01-24-2025 Venous Duplex US, Unilateral [facility] Cardiovascular Services [address] [place] [address] Venous Duplex US, Unilateral 01/24/25 1526 MR#: [id number] Acct: [id number] Name: ROSIE FRANCO Rep #: [id number] : 1960 64 From: Ata Miller MD Attending Dr: Dr. Ish Reyes MD Status: REG CLI Ordering Dr: Ish Reyes MD Date: 01/24/25 Location: [facility] Sex: F C Admitted: Reason For Study Reason For Study: Swelling RIGHT LEFT CFV is compressible, spontaneous, phasic, competent GSV is normal. and demonstrates normal augmentation. CFV is compressible, spontaneous, phasic, competent, Procedure and demonstrates normal augmentation. This is a venous duplex using B-mode, color flow and FV is compressible, spontaneous, phasic, competent spectral Doppler. and demonstrates normal augmentation. Exam performed in department. POP V is compressible, spontaneous, phasic, competent A preliminary report was called and/or faxed to [facility] and demonstrates normal augmentation. RN. T/P Trunk is compressible. PTV is compressible. LT PerV is compressible. VL/Venous Duplex US, Unilateral Interpretation Summary Deep veins of the left lower extremity are patent and compressible segmentally. There is no evidence of left lower extremity deep vein thrombosis. Valvular competence appears intact within the proximal deep venous system on the left . The left great saphenous vein appears patent and compressible segmentally. The right common femoral vein is patent and compressible . Ordering Physician: Ish Reyes Referring Physician: Blanka Recio Performed By: Lizet Khan RVT 01/24/251906 Date Ata Miller MD CC: HR SPECIALIST-C Blanka Recio; Dr. Ish Reyes MD Date Dictated: 01/24/251525 Date Transcribed: 01/24/251906 Garment Worker: Signed Normal [facility] Venous duplex ultrasound rep ortOrdered By: Ata Miller on 01-24-2025 US Vein [facility] [address] [place] [address] Venous Duplex US, Unilateral 01/24/25 1526 MR#: [id number] Acct: [id number] Name: ROSIE FRANCO Rep #:[id number] : 1960 64 From: Ata Miller MD Attending Dr: Dr. Ish Reyes MD Status: REG CLI Ordering Dr: Ish Reyes MD Date: Location: [facility] Sex: F C Admitted: Reason For Study Reason For Study: Swelling RIGHT LEFT CFV is compressible, spontaneous, phasic, competent GSV is normal. and demonstrates normal augmentation. CFV is compressible, spontaneous, phasic, competent, Procedure and demonstrates normal augmentation. This is a venous duplex using B-mode, color flow and FV is compressible, spontaneous, phasic, competent spectral Doppler. and demonstrates normal augmentation. Exam performed in department. POP V is compressible, spontaneous, phasic, competent A preliminary report was called and/or faxed to [facility] and demonstrates normal augmentation. RN. T/P Trunk is compressible. PTV is compressible. LT PerV is compressible. VL/Venous Duplex US, Unilateral Interpretation Summary Deep veins of the left lower extremity are patent and compressible segmentally. There is no evidence of left lower extremity deep vein thrombosis. Valvular competence appears intact within the proximal deep venous system on the left . The left great saphenous vein appears patent and compressible segmentally. The right common femoral vein is patent and compressible . Ordering Physician: Ish Reyes Referring Physician: Blanka Recio Performed By: Lizet Khan RVT 01/24/251906 Date _ Ata Miller MD CC: HR SPECIALIST-C Blanka Recio; Dr. Ish Reyes MD ~ Date Dictated: 01/24/25 1526 Date Transcribed: 01/24/251906 Garment Worker: Signed [facility] Other Phone: Folate [Mass/volume] in Seru m or PlasmaOrdered By: Kayla Monte on 12-27-2024 Folate [Mass/Vol] 2.18 ng/mL Low 4.60-34.80 [facility] Folates,Serum (Folic Acid)on 12-27-2024 FOLATES,SERUM 2.18 ng/mL Low 4.60-34.80 [facility] Comment on above: Order Comment: N Performed By: #### L [id number] #### [facility] Laboratory [address] [place], [place], [id number] [facility]. COMMENT Normal . [facility] Comment on above: Order Comment: [id number] 9ELF TEST TIGER RF Result Comment: Test Ordered: [id number] Enhanced Liver Fibrosis (ELF) ELF(TM) Score 9.30 Reference Range: <9.80 ELF(TM) Score Interpretation: Risk cut-offs to assess the likelihood of progression to cirrhosis and liver-related clinical events within 3.9 years following baseline ELF score (IQR: 14.0-22.4 months)*: Lower risk < 9.80 Mid risk 9.80 - 11.29 Higher risk >11.29 Note: The ELF(TM) Score is a unitless numerical value. *Balaji SA, Kolby VW, Jero T, et al. Selonsertib for patients with bridging fibrosis or compensated cirrhosis due to [place]: Results from randomized phase III STELLAR trials. J Hepatol. 2020 Feb;73(1):26-39. Performed at: [address] [id number] Pressfitter: Christiana Acosta MD, Phone: [phone] Performed at: [address] [id number] Pressfitter: Marco Lynch PhD, Phone: [phone] Performed By: #### L 3890.6102, L3100.0300, L503.0106, L100.0100, L3410.9998, L3100.0460, L3890.6301, L3890.6202, L500.4050, L501.5200 ####[facility] [address] [place], [place], [id number] [facility] COMMENT Normal . [facility] Comment on above: Order Comment: [id number] PETH TEST LAV WB RF Result Comment: Test Ordered: [id number] Phosphatidylethanol (PEth) PHOSPHATIDYLETHANOL Positive [A ] MX Reference Range: . Phosphatidylethanol (PEth) 283 ng/mL MX Reference Range: . Analyzed compound: PEth 16:0/18:1. 9-xxekfirmt-9-rlfldn-sc-jypwrtr-3-phosphoethanol. Analysis performed by Liquid Chromatography with Tandem Mass Spectrometry (LC/MS/MS). Detection limit: 20 ng/mL PEth levels in excess of 20 ng/mL are considered evidence of moderate to heavy ethanol consumption. However, the [facility] ([facility]) advises caution in interpretation and use of biomarkers alone to assess alcohol use. Results should be interpreted in the context of all available clinical and behavioral information. Reference: Substance Abuse and Mental Health Services Administration (2012). The Role of Biomarkers in the Treatment of Alcohol Use Disorders, 2012 Revision. Advisory, Volume 11, Issue 2. This test was developed and its performance characteristics determined by [employer]. It has not been cleared or approved by the Food and Drug Administration. Performed at: [facility] [address] [place] [id number] Pressfitter: Francia Chavarria [facility], Phone: [phone] Performed at: [facility] [id number] Pressfitter: Marco Lynch PhD, Phone: [phone] Performed By: #### L 3410.9998 #### [facility] [address] [place] [address]. [place], [address] Hepatitis A AB, Totalon 04-0 HEPATITIS A,TOT Negative Normal Negative [facility] Comment on above: Result Comment: Comm ent: The HAV total antibody assay detects both IgG and IgM but does not differentiate between them. A negative result suggests susceptibility to infection. A positive result could be due to vaccination, previously resolved infection or active infection. Testing for HAV IgM should be performed if active HAV infection is suspected. [employer] offers profiles that will automatically reflex positive HAV total antibody results to IgM (e.g., panel #[id number] HAV Antibody w/ Rfx). Performed at: [facility] [id number] Pressfitter: Marco Lynch PhD, Phone: [phone] Performed By: #### L 3890.6102, L3100.0300, L503.0106, L100.0100, L3410.9998, L3100.0460, L3890.6301, L3890.6202, L500.4050, L501.5200 ####[facility] [address] [place], [place], [id number] Hepatitis B Core Ab Totalon 12-05-2024 HEP B CORE,TOT Negative Normal Negative [facility] Comment on above: Performed By: #### L 3890.6102, L3100.0300, L503.0106, L100.0100, L3410.9998, L3100.0460, L3890.6301, L3890.6202, L500.4050, L501.5200 ####[facility] [address] [place], [place], [id number] Absolute lymphocyte countOrd ered By: Kayla Monte on 12-04-2024 Lymphocytes Auto (Unsp spec) [#/Vol] 4.63 10*3/uL High 0.83-4.51 [facility] Absolute neutrophil countOrd ered By: Kayla Monte on 12-04-2024 Neutrophils (Bld) [#/Vol] 1.9 10*3/uL Low 2.0-7.7 [facility] Anion gap in Serum or Plasma Ordered By: Kayla Monte on 12-04-2024 Anion gap [Moles/Vol] 13 mmol/L 5-15 [facility] Comment on above: Previous reported re sult: 12 Edited by: AUTOINS on 12/04/24:1140 AMENDED REPORT 12/04/24 1140 GAP previously reported as: 12 Automated lymphocyte count a s percentage of total leukocytesOrdered By: Kayla Monte on 12-04-2024 Lymphocytes/100 WBC Auto (Unsp spec) 65.4 % High 19-41 [facility] BUN/creatinine ratioOrdered By: Kayla Monte on 12-04-2024 Urea nitrogen/Creatinine [Mass ratio] 11.4 mg/mg 10-20 [facility] Comment on above: Previous reported re sult: 11.6 RATIOEdited by: FILOMENA on 12/04/24:1140 AMENDED REPORT 12/04/24 1140 BUN/CRE previously reported as: 11.6 RATIO Basophil percentageOrdered B y: Kayla Lavell on 12-04-2024 Basophils/100 WBC (Bld) 0.6 % 0-1 [facility] Bilirubin, totalOrdered By: Kayla Monte on 12-04-2024 Bilirubin [Mass/Vol] 0.30 mg/dL 0.00-1.30 [facility] CBC W/Diff, Automatedon Absolute Lymph 4.63 X10 3/uL High 0.83-4.51 [facility] Comment on above: Performed By: #### L 3890.6102, L3100.0300, L503.0106, L100.0100, L3410.9998, L3100.0460, L3890.6301, L3890.6202, L500.4050, L501.5200 #### [facility] [address] [place], [place], [id number] Absolute Neut 1.9 X10 3/uL Low 2.0-7.7 [facility] Comment on above: Performed By: #### L 3890.6102, L3100.0300, L503.0106, L100.0100, L3410.9998, L3100.0460, L3890.6301, L3890.6202, L500.4050, L501.5200 #### [facility] [address] [place], [address] Basophils/100 WBC (Bld) 0.6 % Normal 0-1 [facility] Comment on above: Performed By: #### L 3890.6102, L3100.0300, L503.0106, L100.0100, L3410.9998, L3100.0460, L3890.6301, L3890.6202, L500.4050, L501.5200 #### [facility] [address] [place], [address] Eosinophils/100 WBC (Bld) 3.0 % Normal 0-5 [facility] Comment on above: Performed By: #### L 3890.6102, L3100.0300, L503.0106, L100.0100, L3410.9998, L3100.0460, L3890.6301, L3890.6202, L500.4050, L501.5200 #### [facility] [address] [place], [address] (463) Erythrocyte distribution width (RBC) [Ratio] 12.7 % Normal 11.6-14.6 [facility] Comment on above: Performed By: #### L 3890.6102, L3100.0300, L503.0106, L100.0100, L3410.9998, L3100.0460, L3890.6301, L3890.6202, L500.4050, L501.5200 #### [facility] [address] [place], [place], [phone] (612) Hematocrit (Bld) [Volume fraction] 32.5 % Low 37-47 [facility] Comment on above: Performed By: #### L 3890.6102, L3100.0300, L503.0106, L100.0100, L3410.9998, L3100.0460, L3890.6301, L3890.6202, L500.4050, L501.5200 #### [facility] [address] [place], [address] (233) Hemoglobin (Bld) [Mass/Vol] 11.6 g/dL Low 12.0-15.0 [facility] Comment on above: Performed By: #### L 3890.6102, L3100.0300, L503.0106, L100.0100, L3410.9998, L3100.0460, L3890.6301, L3890.6202, L500.4050, L501.5200 #### [facility] [address] [facility] [place], [address] IG% 0.300 Normal 0.0-0.9 [facility] Comment on above: Result Comment: IG% - Immature Granulocytes (promyelocytes, myelocytes and metamyelocytes) > 1% indicates that a LEFT SHIFT is Present. Performed By: #### L 3890.6102, L3100.0300, L503.0106, L100.0100, L3410.9998, L3100.0460, L3890.6301, L3890.6202, L500.4050, L501.5200 #### [facility] [address] [place], [address] Lymphocytes/100 WBC (Bld) 65.4 % High 19-41 [facility] Comment on above: Performed By: #### L 3890.6102, L3100.0300, L503.0106, L100.0100, L3410.9998, L3100.0460, L3890.6301, L3890.6202, L500.4050, L501.5200 #### [facility] [address] [facility] [place], [address] MCH (RBC) [Entitic mass] 39.9 pg High 27.0-32.0 [facility] Comment on above: Performed By: #### L 3890.6102, L3100.0300, L503.0106, L100.0100, L3410.9998, L3100.0460, L3890.6301, L3890.6202, L500.4050, L501.5200 #### [facility] [address] [place], [address] MCHC (RBC) [Mass/Vol] 35.7 g/dL Normal 32-36 [facility] Comment on above: Performed By: #### L 3890.6102, L3100.0300, L503.0106, L100.0100, L3410.9998, L3100.0460, L3890.6301, L3890.6202, L500.4050, L501.5200 #### [facility] [address] [place], [address] MCV (RBC) [Entitic vol] 111.7 fL High 81-99 [facility] Comment on above: Performed By: #### L 3890.6102, L3100.0300, L503.0106, L100.0100, L3410.9998, L3100.0460, L3890.6301, L3890.6202, L500.4050, L501.5200 #### [facility] [address] [place], [place], [phone] (610) Monocytes/100 WBC (Bld) 4.1 % Normal 0-10 [facility] Comment on above: Performed By: #### L 3890.6102, L3100.0300, L503.0106, L100.0100, L3410.9998, L3100.0460, L3890.6301, L3890.6202, L500.4050, L501.5200 #### [facility] [address] [place], [address] Neutrophils/100 WBC (Bld) 26.6 % Low 47-70 [facility] Comment on above: Performed By: #### L 3890.6102, L3100.0300, L503.0106, L100.0100, L3410.9998, L3100.0460, L3890.6301, L3890.6202, L500.4050, L501.5200 #### [facility] [address] [place], [address] Nucleated RBC (Bld) [#/Vol] 0 10*3/uL Normal 0-5 [facility] Comment on above: Performed By: #### L 3890.6102, L3100.0300, L503.0106, L100.0100, L3410.9998, L3100.0460, L3890.6301, L3890.6202, L500.4050, L501.5200 #### [facility] [address] [place], [address] Platelet mean volume (Bld) [Entitic vol] 9.1 fL Normal 6.2-12.0 [facility] Comment on above: Performed By: #### L 3890.6102, L3100.0300, L503.0106, L100.0100, L3410.9998, L3100.0460, L3890.6301, L3890.6202, L500.4050, L501.5200 #### [facility] [address] [place], [place], [phone] (710) Platelets (Bld) [#/Vol] 202 10*3/uL Normal 150-450 [facility] Comment on above: Performed By: #### L 3890.6102, L3100.0300, L503.0106, L100.0100, L3410.9998, L3100.0460, L3890.6301, L3890.6202, L500.4050, L501.5200 #### [facility] [address] [place], [address] RBC (Bld) [#/Vol] 2.91 10*6/uL Low 4.2-5.4 [facility] Comment on above: Performed By: #### L 3890.6102, L3100.0300, L503.0106, L100.0100, L3410.9998, L3100.0460, L3890.6301, L3890.6202, L500.4050, L501.5200 #### [facility] [address] [place], [place], [address] RDW SD 52.1 fl High 35.1-43.9 [facility] Comment on above: Performed By: #### L 3890.6102, L3100.0300, L503.0106, L100.0100, L3410.9998, L3100.0460, L3890.6301, L3890.6202, L500.4050, L501.5200 #### [facility] [address] [place], [place], [phone] WBC (Bld) [#/Vol] 7.1 10*3/uL Normal 4.4-11.0 [facility] Comment on above: Performed By: #### L 3890.6102, L3100.0300, L503.0106, L100.0100, L3410.9998, L3100.0460, L3890.6301, L3890.6202, L500.4050, L501.5200 #### [facility] [address] [place], [place], [phone] Carbon dioxide, total [Moles /volume] in Central venous bloodOrdered By: Kayla Monte on 12-04-2024 CO2 [Moles/Vol] 22.5 mmol/L 21.0-32.0 [facility] Comment on above: Previous reported re sult: 23.5 mmol/LEdited by: AUTOINS on 12/04/24:1140 AMENDED REPORT 12/04/24 1140 CO2 previously reported as: 23.5 mmol/L Chloride assayOrdered By: Garret Monte on 12-04-2024 Chloride [Moles/Vol] 105 mmol/L 98-108 [facility] Comment on above: Previous reported re sult: 104 mmol/LEdited by: AUTOINS on 12/04/24:1140 AMENDED REPORT 12/04/24 1140 CL previously reported as: 104 mmol/L Comprehensive Metabolic Prof ilon 12-04-2024 Albumin [Mass/Vol] 4.2 g/dL Normal 3.4-4.8 [facility] Comment on above: Result Comment: AMENDED REPORT 12/04/241139 ALB previously reported as: 4.3 g/dL Performed By: #### L 3890.6102, L3100.0300, L503.0106, L100.0100, L3410.9998, L3100.0460, L3890.6301, L3890.6202, L500.4050, L501.5200 #### [facility] [address] [place], [address] Albumin/Globulin [Mass ratio] 1.9 {ratio} Normal 0.9-2.4 [facility] Comment on above: Performed By: #### L 3890.6102, L3100.0300, L503.0106, L100.0100, L3410.9998, L3100.0460, L3890.6301, L3890.6202, L500.4050, L501.5200 #### [facility] [address] [place], [address] ALK PHOS 76 U/L Normal 35-104 [facility] Comment on above: Result Comment: AMENDED REPORT 12/04/241139 ALK P previously reported as: 79 U/L Performed By: #### L 3890.6102, L3100.0300, L503.0106, L100.0100, L3410.9998, L3100.0460, L3890.6301, L3890.6202, L500.4050, L501.5200 #### [facility] [address] [place], [address] ALT [Catalytic activity/Vol] 66 U/L High <=34 [facility] Comment on above: Result Comment: AMENDED REPORT 12/04/241139 ALT previously reported as: 69 H U/L Performed By: #### L 3890.6102, L3100.0300, L503.0106, L100.0100, L3410.9998, L3100.0460, L3890.6301, L3890.6202, L500.4050, L501.5200 #### [facility] [address] [place], [address] AST [Catalytic activity/Vol] 69 U/L High <=31 [facility] Comment on above: Result Comment: AMENDED REPORT 12/04/24 1140 AST previously reported as: 71 H U/L Performed By: #### L 3890.6102, L3100.0300, L503.0106, L100.0100, L3410.9998, L3100.0460, L3890.6301, L3890.6202, L500.4050, L501.5200 #### [facility] [address] [place], [address] Bilirubin [Mass/Vol] 0.30 mg/dL Normal 0.00-1.30 [facility] Comment on above: Performed By: #### L 3890.6102, L3100.0300, L503.0106, L100.0100, L3410.9998, L3100.0460, L3890.6301, L3890.6202, L500.4050, L501.5200 #### [facility] [address] [place], [address] BUN/CRE 11.4 RATIO Normal 10-20 [facility] Comment on above: Result Comment: AMENDED REPORT 12/04/24 1140 BUN/CRE previously reported as: 11.6 RATIO Performed By: #### L 3890.6102, L3100.0300, L503.0106, L100.0100, L3410.9998, L3100.0460, L3890.6301, L3890.6202, L500.4050, L501.5200 #### [facility] [address] [place], [address] Calcium [Mass/Vol] 9.5 mg/dL Normal 7.6-11.0 [facility] Comment on above: Result Comment: AMENDED REPORT 12/04/24 1140 CA previously reported as: 9.4 mg/dL Performed By: #### L 3890.6102, L3100.0300, L503.0106, L100.0100, L3410.9998, L3100.0460, L3890.6301, L3890.6202, L500.4050, L501.5200 #### [facility] [address] [place], [address] Chloride [Moles/Vol] 105 mmol/L Normal 98-108 [facility] Comment on above: Result Comment: AMENDED REPORT 12/04/241139 CL previously reported as: 104 mmol/L Performed By: #### L 3890.6102, L3100.0300, L503.0106, L100.0100, L3410.9998, L3100.0460, L3890.6301, L3890.6202, L500.4050, L501.5200 #### [facility] [address] [place], [address] CO2 [Moles/Vol] 22.5 mmol/L Normal 21.0-32.0 [facility] Comment on above: Result Comment: AMENDED REPORT 12/04/24 1140 CO2 previously reported as: 23.5 mmol/L Performed By: #### L 3890.6102, L3100.0300, L503.0106, L100.0100, L3410.9998, L3100.0460, L3890.6301, L3890.6202, L500.4050, L501.5200 #### [facility] [address] [place], [address] Creatinine [Mass/Vol] 1.09 mg/dL Normal 0.70-1.20 [facility] Comment on above: Result Comment: AMENDED REPORT 12/04/241139 CREAT,SERUM previously reported as: 1.03 mg/dL Performed By: #### L 3890.6102, L3100.0300, L503.0106, L100.0100, L3410.9998, L3100.0460, L3890.6301, L3890.6202, L500.4050, L501.5200 #### [facility] [address] [place], [address] GAP 13 Normal 5-15 [facility] Comment on above: Result Comment: AMENDED REPORT 12/04/240 GAP previously reported as: 12 Performed By: #### L 3890.6102, L3100.0300, L503.0106, L100.0100, L3410.9998, L3100.0460, L3890.6301, L3890.6202, L500.4050, L501.5200 #### [facility] [address] [place], [address] Globulin (S) [Mass/Vol] 2.3 g/dL Normal 2.2-4.2 [facility] Comment on above: Result Comment: AMENDED REPORT 12/04/241139 GLOB previously reported as: 2.1 L g/dL Performed By: #### L 3890.6102, L3100.0300, L503.0106, L100.0100, L3410.9998, L3100.0460, L3890.6301, L3890.6202, L500.4050, L501.5200 #### [facility] [address] [place], [address] Glucose [Mass/Vol] 77 mg/dL Normal 70-99 [facility] Comment on above: Performed By: #### L 3890.6102, L3100.0300, L503.0106, L100.0100, L3410.9998, L3100.0460, L3890.6301, L3890.6202, L500.4050, L501.5200 #### [facility] [address] [place], [address] Potassium [Moles/Vol] 4.5 mmol/L Normal 3.3-5.1 [facility] Comment on above: Result Comment: AMENDED REPORT 12/04/24 1140 K previously reported as: 4.4 mmol/L Performed By: #### L 3890.6102, L3100.0300, L503.0106, L100.0100, L3410.9998, L3100.0460, L3890.6301, L3890.6202, L500.4050, L501.5200 #### [facility] [address] [place], [address] Sodium [Moles/Vol] 140 mmol/L Normal 133-145 [facility] Comment on above: Result Comment: AMENDED REPORT 12/04/24 1140 NA previously reported as: 139 mmol/L Performed By: #### L 3890.6102, L3100.0300, L503.0106, L100.0100, L3410.9998, L3100.0460, L3890.6301, L3890.6202, L500.4050, L501.5200 #### [facility] [address] [place], [address] T PROT 6.5 g/dL Normal 5.9-8.4 [facility] Comment on above: Result Comment: AMENDED REPORT 12/04/24 1140 T PROT previously reported as: 6.4 g/dL Performed By: #### L 3890.6102, L3100.0300, L503.0106, L100.0100, L3410.9998, L3100.0460, L3890.6301, L3890.6202, L500.4050, L501.5200 #### [facility] [address] [place], [address] Urea nitrogen [Mass/Vol] 12 mg/dL Normal 4-19 [facility] Comment on above: Performed By: #### L 3890.6102, L3100.0300, L503.0106, L100.0100, L3410.9998, L3100.0460, L3890.6301, L3890.6202, L500.4050, L501.5200 #### [facility] [address] [place], [address] Eosinophil percentageOrdered By: Kayla Monte on 12-04-2024 Eosinophils/100 WBC (Bld) 3.0 % 0-5 [facility] Erythrocyte distribution wid th (RBC) [Ratio]Ordered By: Kayla Monte on 12-04-2024 Erythrocyte distribution width (RBC) [Entitic vol] 52.1 fL High 35.1-43.9 [facility] Erythrocyte distribution wid th ratioOrdered By: Kayla Monte on 12-04-2024 Erythrocyte distribution width (RBC) [Ratio] 12.7 % 11.6-14.6 [facility] Erythrocyte distribution wid th standard deviationOrdered By: Kayla Monte on 12-04-2024 Erythrocyte distribution width (RBC) [Ratio] 52.1 fl High 35.1-43.9 [facility] GFR/1.73 sq M.predicted balwinder g non-blacks MDRD (S/P/Bld) [Vol rate/Area]Ordered By: Kayla Monte on 12-04-2024 Estimated GFR (MDRD) Non-Af Amer 60 >60 [facility] Comment on above: mL/min/1.73m2 CKD-EP I Creatinine Equation (2020) Gastroenterology Visit Repor ton 12-04-2024 Gastroenterology Visit Report [facility] [address] [place] [address] OFFICE VISIT Date of Service: 12/04/24 MR#: [id number] Acct: [id number] Name: ROSIE FRANCO Rep #: [id number] : 1960 Provider: CATRINA nava Age/Sex: 64/F [place] [facility] [place] Status: Signed Intake Vital Signs 05/31/24 08:21 12/04/24 09:11 Height 5 ft 1 in 5 ft 1 in Weight: 139 lb 4 oz BMI 26.3 BP 156/75 H Respiration 18 Pulse 71 Pulse Oximetry (%) 97 Oxygen Delivery Method room air Intake Visit Reasons: LIVER ISSUES Chief Complaint: pain [employer] Supervisor Required: No Is patient in pain?: No Allergies Sulfa (Sulfonamide Antibiotics) Allergy (Verified 12/04/24 09:03) Rash Medications ???Medication ???Instructions ???Recorded ???Confirmed ???Type citalopram 10 mg tablet 10 mg PO DAILY 03/01/24 12/04/24 H istory carvedilol 6.25 mg tablet 6.25 mg PO BID #60 tabs 05/16/24 0 12/04/24 Rx alprazolam 0.5 mg tablet 1 mg PO BID anxiety 12/04/2412/04 History ondansetron HCl 4 mg tablet 4 mg PO .COMPLEX #5 tabs 12/04/24 12/04/24 Rx pantoprazole 40 mg tablet,delayed 40 mg PO QDAY #90 tabs 12/04/24 0 12/04/24 Rx release peg 3350-electrolytes 236 240 ml PO Q10M #4,000 mL 12/04/24 12/04/24 Rx gram-22.74 gram-6.74 gram-5.86 gram solution (Golytely) Have you fallen in the past year?: Yes Nurse's Note: Abdominal pain starts in URQ and radiates across abdomen to LLQ. PFSH Medical History Endophthalmitis Hypertension Depression Essential hypertension Hx of fracture of clavicle Hypotension Fatigue Nicotine dependence Open wound of finger with complication Infected puncture wound of finger Swelling Hemorrhoids SOB (shortness of breath) Surgical History Hx of section Hx of hysterectomy Family History Father Heart disease Diabetes Hypertension Mother Thyroid disorder Hypertension Grandfather Cancer Kidney Black lung Grandmother Diabetes Alzheimer's dementia Social History Smoking Status: Current every day smoker quit status: considering quitting alcohol intake: current alcohol intake frequency: a few times a week Alcohol type: wine substance use type: does not use caffeine: Yes Type: coffee Number of servings: 1 HPI HPI Chief Complaint: pain Details: ROSIE FRANCO, is a 64 F who presents to the office today for CT A P completed 11/24/2024 revealed a focal area of steatosis in the left hepatic lobe and 5 mm right hepatic lobe cyst. 01/28/2024 ferritin 277, Fe 110, TSH WNL - RUQ pain radiates across abdomen to LLQ - since May I have taken a dive with my health - reports she used to work 60-70h/week - she retired May 2024 - symptoms began with pain, diarrhea and nausea which she attributed to eating fast food and stress - nagging pain, constant, worsens with movement and can worsen with PO intake - c/o fatigue - no more fast food the past 2 weeks since told she has fatty liver, states pain is mildly improved - nausea and dry heaves intermittent, not associated with PO intake - HB - takes OTC antacids, couple times a week - burning - denies any dysphagia - she is a smoker - diarrhea has improved with elimination of fast food - stools are now soft - she does have a BM every day and some days she does have formed stools - denies any change in bowel habits - denies any BRBPR - denies any melena Autoimmune: denies Meds: see active med list ALCOHOL: couple glasses of wine twice a day NSAIDS: IBU 600mg QOD for RUQ pain Jaundice: denies Ascites: denies Tattoo: yes IVDU: denies Blood Transfusion: denies Any h/o DVT: denies FAMILY h/o liver disease: denies CBC: 10/24/2024 HGB 11.1, PLT 203 CMP: 10/24/2024 AST 143, ALT 125, Creat 1.2, GFR 52, Albumin 4.1 PT/INR: not on file AFP: not previously performed FIB-4: 4.1 advanced fibrosis likely DIET: Patient has been counseled to follow a strict low sodium diet. WEIGHT: c/o weight gain 10lbs in past 6 months (139lbs/BMI 26) PULSE: 71 on Carvedilol 6.25 BID FIBROSCAN: - will order today LIVER BX: not previously performed ABD US: 10/30/2024 revealed an ill-defined echogenic lesion in the liver measuring 2.9 x 4.4 x 2.0 cm as well as fatty infiltration of the liver. PARA: not previously performed DOPPLER: not previously performed EGD: not previously performed - Colonoscopy - many years ago - per patient this was negative - states the prep was awful and procedure hurt like hell and reports she does not want another one (more content not included)... Normal [facility] Glomerular filtration rate ( GFR) estimation/1.73 sq m using serum, plasma, or whole bOrdered By: Kayla Monte on 12-04-2024 GFR/1.73 sq M.predicted among non-blacks MDRD (S/P/Bld) [Vol rate/Area] 60 mL/min/{1.73_m2} >60 [facility] Comment on above: mL/min/1.73m2 CKD-EP I Creatinine Equation (2020) HBV core Ab Ql (S)Ordered By : Kayla Monte on 12-04-2024 Hepatitis B Core Total Antibody Negative Negative [facility] HBV surface Ab Ql (S)Ordered By: Kayla Monte on 12-04-2024 Hepatitis B Surface Antibody REAC [facility] Comment on above: <8.5 mIU/mL: Non-[place] ctive8.5<= x <11.5 mIU/mL: Indeterminate>=11.5 mIU/mL: Reactive Non Reactive: Inconsistent with immunity less than <10 mIU/mL Reactive: Consistent with immunity greater than or equal to 10 mIU/mL HBV surface Ag Ql (S)Ordered By: Kayla Monte on 12-04-2024 Hepatitis B Surface Antigen Non-Reactive Nonreactive [facility] Comment on above: Reactive: Presumptiv e evidence of HBV. Repeatedly reactive samples must be confirmed using a neutralization test ([employer] HBsAg Confirmatory Test)Non-Reactive: HBsAg not detected; does not exclude the possibility of exposure to HBV Hematocrit Auto (Bld) [Volum e fraction]Ordered By: Kayla Monte on 12-04-2024 Hematocrit (Bld) [Volume fraction] 32.5 % Low 37-47 [facility] Hemoglobin (Reticulocytes) [ Entitic mass]Ordered By: Kayla Monte on 12-04-2024 Reticulocyte Hemoglobin Equivalent 39.4 pg High 30-35 [facility] Hemoglobin measurementOrdere d By: Kayla Monte on 12-04-2024 Hemoglobin (Bld) [Mass/Vol] 11.6 g/dL Low 12.0-15.0 [facility] Hepatitis A virus total anti body assayOrdered By: Kayla Monte on 12-04-2024 Hepatitis A Antibody Total Negative Negative [facility] Comment on above: Comment: The HAV tot al antibody assay detects both IgG andIgM but does not differentiate between them. A negativeresult suggests susceptibility to infection. A positiveresult could be due to vaccination, previously resolvedinfection or active infection. Testing for HAV IgM shouldbe performed if active HAV infection is suspected. [facility] profiles that will automatically reflex positive HAVtotal antibody results to IgM (e.g., panel #[id number] HAVAntibody w/ Rfx).Performed at: [place] [id number] Director: Marco Lynch PhD, Phone: [phone] Hepatitis B Surface Antibody on 12-04-2024 HEP B Surf Ab REAC Normal [facility] Comment on above: Result Comment: <8.5 mIU/mL: Non-Reactive 8.5<= x <11.5 mIU/mL: Indeterminate >=11.5 mIU/mL: Reactive Non Reactive: Inconsistent with immunity less than <10 mIU/mL Reactive: Consistent with immunity greater than or equal to 10 mIU/mL Performed By: #### L 3890.6102, L3100.0300, L503.0106, L100.0100, L3410.9998, L3100.0460, L3890.6301, L3890.6202, L500.4050, L501.5200 ####[facility] [address] [place], [address] Hepatitis C Antibodyon 12-04 Hepatitis C Ab Non-Reactive Normal Nonreactive [facility] Comment on above: Result Comment: Reac tive: Presumptive evidence of antibodies to HCV. Follow CDC recommendations for supplemental testing. Non-Reactive: Antibodies to HCV were not detected; does not exclude the possibility of exposure to HCV Reactive Results are presumptive evidence of antibodies to HCV. Follow CDC recommendations for supplemental testing. Order confirmation testing: HCV Quant by PCR testing - HCVPCR lc#[id number] Non Reactive: < 0.8 Equivocal: >/= 0.8 to < 1.0 Reactive: >/= 1.0 The CDC requires that a reactive/equivocal HCV antibody result be sent out for confirmation. HCV Quant by PCR testing. Performed By: #### L 3890.6102, L3100.0300, L503.0106, L100.0100, L3410.9998, L3100.0460, L3890.6301, L3890.6202, L500.4050, L501.5200 ####[facility] [address] [place], [address] Hepatitis C antibodyOrdered By: Kayla Monte on 12-04-2024 Hepatitis C Antibody Non-Reactive Nonreactive [facility] Comment on above: Reactive: Presumptiv e evidence of antibodies to HCV. Follow CDC recommendations for supplemental testing.Non-Reactive: Antibodies to HCV were not detected; does not exclude the possibility of exposure to HCVReactive Results are presumptive evidence of antibodies to HCV. Follow CDC recommendations for supplemental testing.Order confirmation testing: HCV Quant by PCR testing - HCVPCR lc#[id number] Non Reactive: < 0.8 Equivocal: >/= 0.8 to < 1.0 Reactive: >/= 1.0The CDC requires that a reactive/equivocal HCV antibody result be sent out for confirmation. HCV Quant by PCR testing. Immature granulocytes/100 WB C Auto (Bld)Ordered By: Kayla Monte on 12-04-2024 Immature granulocytes/100 WBC (Bld) 0.300 % 0.0-0.9 [facility] Comment on above: IG% - Immature Granu locytes (promyelocytes, myelocytes and metamyelocytes) > 1% indicates that a LEFT SHIFT is Present. Immature reticulocyte fracti onOrdered By: Kayla Monte on 12-04-2024 Immature Reticulocyte Fraction 12.40 % 3.00-15.90 [facility] L3890.6102on 12-04-2024 HEP B Surf Ag Non-Reactive Normal Nonreactive [facility] Comment on above: Result Comment: Reac tive: Presumptive evidence of HBV. Repeatedly reactive samples must be confirmed using a neutralization test ([employer] HBsAg Confirmatory Test) Non-Reactive: HBsAg not detected; does not exclude the possibility of exposure to HBV Performed By: #### L 3890.6102, L3100.0300, L503.0106, L100.0100, L3410.9998, L3100.0460, L3890.6301, L3890.6202, L500.4050, L501.5200 ####[facility] [address] [place], [address] Laboratory - Chemistry and C hemistry - challengeOrdered By: Kayla Monte on 12-04-2024 AST [Catalytic activity/Vol] 69 U/L High <32 [facility] Comment on above: Previous reported re sult: 71 U/LEdited by: AUTOINS on 12/04/24:1140 AMENDED REPORT 12/04/24 1140 AST previously reported as: 71 H U/L Laboratory - Microbiology an d Antimicrobial susceptibilityOrdered By: Kayla Monte on 12-04-2024 HBV surface Ag Ql (S) Non-Reactive Nonreactive [facility] Comment on above: Reactive: Presumptiv e evidence of HBV. Repeatedly reactive samples must be confirmed using a neutralization test ([employer] HBsAg Confirmatory Test)Non-Reactive: HBsAg not detected; does not exclude the possibility of exposure to HBV Lymphocytes Auto (Unsp spec) [#/Vol]Ordered By: Kayla Monte on 12-04-2024 Lymphocytes (Bld) [#/Vol] 4.63 10*3/uL High 0.83-4.51 [facility] Lymphocytes/100 WBC Auto (Un sp spec)Ordered By: Kayla Monte on 12-04-2024 Lymphocytes/100 WBC (Bld) 65.4 % High 19-41 [facility] MCV (mean corpuscular volume ) determinationOrdered By: Kayla Monte on 12-04-2024 MCV (RBC) [Entitic vol] 111.7 fL High 81-99 [facility] Magnesiumon 12-04-2024 Magnesium [Mass/Vol] 2.2 mg/dL Normal 1.5-2.2 [facility] Comment on above: Performed By: #### L 3890.6102, L3100.0300, L503.0106, L100.0100, L3410.9998, L3100.0460, L3890.6301, L3890.6202, L500.4050, L501.5200 ####[facility] [address] [place], [address] Magnesium (Unsp spec) [Mass/ Vol]Ordered By: Kayla Monte on 12-04-2024 Magnesium [Mass/Vol] 2.2 mg/dL 1.5-2.2 [facility] Magnesium measurement (mass/ volume)Ordered By: Kayla Monte on 12-04-2024 Magnesium (Unsp spec) [Mass/Vol] 2.2 mg/dL 1.5-2.2 [facility] Mean corpuscular hemoglobin (MCH) determinationOrdered By: Kayla Monte on 12-04-2024 MCH (RBC) [Entitic mass] 39.9 pg High 27.0-32.0 [facility] Mean corpuscular hemoglobin concentration (MCHC) determinationOrdered By: Kayla Monte on 12-04-2024 MCHC (RBC) [Mass/Vol] 35.7 g/dL 32-36 [facility] Mean platelet volume determi nationOrdered By: Kayla Monte on 12-04-2024 Platelet mean volume (Bld) [Entitic vol] 9.1 fL 6.2-12.0 [facility] Monocyte percentageOrdered B y: Kayla Monte on 12-04-2024 Monocytes/100 WBC (Bld) 4.1 % 0-10 [facility] Neutrophil percentageOrdered By: Kayla Monte on 12-04-2024 Neutrophils/100 WBC (Bld) 26.6 % Low 47-70 [facility] Nucleated red blood cell per centageOrdered By: Kayla Monte on 12-04-2024 Nucleated RBC/100 WBC (Bld) [Ratio] 0 % 0-5 [facility] Platelet countOrdered By: Garret Monte on 12-04-2024 Platelets (Bld) [#/Vol] 202 10*3/uL 150-450 [facility] Potassium (Unsp spec) [Mass/ Vol]Ordered By: Kayla Monte on 12-04-2024 Potassium [Moles/Vol] 4.5 mmol/L 3.3-5.1 [facility] Comment on above: Previous reported re sult: 4.4 mmol/LEdited by: YOBANYS on 12/04/24:1140 AMENDED REPORT 12/04/24 1140 K previously reported as: 4.4 mmol/L Potassium measurement (mass/ volume)Ordered By: Kayla Monte on 12-04-2024 Potassium (Unsp spec) [Mass/Vol] 4.5 mmol/L 3.3-5.1 [facility] Comment on above: Previous reported re sult: 4.4 mmol/LEdited by: YOBANYS on 12/04/24:1140 AMENDED REPORT 12/04/24 1140 K previously reported as: 4.4 mmol/L RBC Auto (Bld) [#/Vol]Ordere d By: Kayla Monte on 12-04-2024 RBC (Bld) [#/Vol] 2.91 10*6/uL Low 4.2-5.4 [facility] Retic Panelon 12-04-2024 IM RET FRACTION 12.40 Normal 3.00-15.90 [facility] Comment on above: Performed By: #### L 100.9950 #### [facility] Laboratory [address] [place], [place], [id number] RET-HE 39.4 pg High 30-35 [facility] Comment on above: Performed By: #### L 100.9950 #### [facility] [address] [place], [address] Retic Count 3.49 High 0.5-1.5 [facility] Comment on above: Result Comment: SCOTT OT ADD ON. TUBE WENT TO [facility] FOR TESTING. EMAIL SENT TO LAB STAFF. Performed By: #### L 437.7027 #### [facility] [address] [place], [address] Reticulocyte hemoglobin equi valent (RET-He) measurementOrdered By: Kayla Monte on 12-04-2024 Hemoglobin (Reticulocytes) [Entitic mass] 39.4 pg High 30-35 [facility] Reticulocytes Auto (Bld) [#/ Vol]Ordered By: Kayla Monte on 12-04-2024 Reticulocyte Count 3.49 % High 0.5-1.5 [facility] Reticulocytes/100 RBC (Bld) 3.49 % High 0.5-1.5 [facility] Serum creatinine measurement (mass/volume)Ordered By: Kayla Monte on 12-04-2024 Creatinine [Mass/Vol] 1.09 mg/dL 0.70-1.20 [facility] Comment on above: Previous reported re sult: 1.03 mg/dLEdited by: FILOMENA on 12/04/24:1140 AMENDED REPORT 12/04/24 1140 CREAT,SERUM previously reported as: 1.03 mg/dL Serum globulin measurementOr dered By: Kayla Monte on 12-04-2024 Globulin (S) [Mass/Vol] 2.3 g/dL 2.2-4.2 [facility] Comment on above: Previous reported re sult: 2.1 g/dLEdited by: AUTOINS on 12/04/24:1140 AMENDED REPORT 12/04/24 1140 GLOB previously reported as: 2.1 L g/dL Serum glucose measurement (m ass/volume)Ordered By: Kayla Monte on 12-04-2024 Glucose [Mass/Vol] 77 mg/dL 70-99 [facility] Serum hepatitis B virus core antibody detectionOrdered By: Kayla Monte on 12-04-2024 HBV core Ab Ql (S) Negative Negative [facility] Serum hepatitis B virus surf tasia antibody detectionOrdered By: Kayla Monte on 12-04-2024 HBV surface Ab Ql (S) REAC [facility] Comment on above: <8.5 mIU/mL: Non-Bogata ctive8.5<= x <11.5 mIU/mL: Indeterminate>=11.5 mIU/mL: Reactive Non Reactive: Inconsistent with immunity less than <10 mIU/mL Reactive: Consistent with immunity greater than or equal to 10 mIU/mL Serum or plasma alanine francis otransferase (ALT) measurementOrdered By: Kayla Monte on 12-04-2024 ALT [Catalytic activity/Vol] 66 U/L High <35 [facility] Comment on above: Previous reported re sult: 69 U/LEdited by: FILOMENA on 12/04/24:1140 AMENDED REPORT 12/04/24 1140 ALT previously reported as: 69 H U/L Serum or plasma albumin semaj urement (mass/volume)Ordered By: Kayla Monte on 12-04-2024 Albumin [Mass/Vol] 4.2 g/dL 3.4-4.8 [facility] Comment on above: Previous reported re sult: 4.3 g/dLEdited by: FILOMENA on 12/04/24:1140 AMENDED REPORT 12/04/24 1140 ALB previously reported as: 4.3 g/dL Serum or plasma albumin/glob ulin mass ratioOrdered By: Kayla Monte on 12-04-2024 Albumin/Globulin [Mass ratio] 1.9 {ratio} 0.9-2.4 [facility] Serum or plasma alkaline alexia sphatase measurementOrdered By: Kayla Monte on 12-04-2024 ALP [Catalytic activity/Vol] 76 U/L 35-104 [facility] Comment on above: Previous reported re sult: 79 U/LEdited by: FILOMENA on 12/04/24:1140 AMENDED REPORT 12/04/24 1140 ALK P previously reported as: 79 U/L Serum or plasma calcium semaj urement (mass/volume)Ordered By: Kayla Monte on 12-04-2024 Calcium [Mass/Vol] 9.5 mg/dL 7.6-11.0 [facility] Comment on above: Previous reported re sult: 9.4 mg/dLEdited by: FILOMENA on 12/04/24:1140 AMENDED REPORT 12/04/24 1140 CA previously reported as: 9.4 mg/dL Serum or plasma urea nitroge n measurement (mass/volume)Ordered By: Kayla Monte on 12-04-2024 Urea nitrogen [Mass/Vol] 12 mg/dL 4-19 [facility] Sodium levelOrdered By: Daisha Monte on 12-04-2024 Sodium [Moles/Vol] 140 mmol/L 133-145 [facility] Comment on above: Previous reported re sult: 139 mmol/LEdited by: FILOMENA on 12/04/24:1140 AMENDED REPORT 12/04/24 1140 NA previously reported as: 139 mmol/L Total proteinOrdered By: Megan Monte on 12-04-2024 Protein [Mass/Vol] 6.5 g/dL 5.9-8.4 [facility] Comment on above: Previous reported re sult: 6.4 g/dLEdited by: FILOMENA on 12/04/24:1140 AMENDED REPORT 12/04/24 1140 T PROT previously reported as: 6.4 g/dL Vitamin B12on 12-04-2024 Cobalamin (Vitamin B12) [Mass/Vol] 530 pg/mL Normal 180-914 [facility] Comment on above: Performed By: #### L 3890.6102, L3100.0300, L503.0106, L100.0100, L3410.9998, L3100.0460, L3890.6301, L3890.6202, L500.4050, L501.5200 ####[facility] [address] [place], [address] Vitamin B12 ser/plasOrdered By: Kayla Monte on 12-04-2024 Cobalamin (Vitamin B12) [Mass/Vol] 530 pg/mL 180-914 [facility] White blood cell (WBC) count Ordered By: Kayla Lavell on 12-04-2024 WBC (Bld) [#/Vol] 7.1 10*3/uL 4.4-11.0 [facility] Abdomen W/WO IV Contraston 0 11-24-2024 Abdomen W/WO IV Contrast [facility] Imaging Services [address] [place] [address] Abdomen W/WO IV Contrast MR#: [id number] Acct: [id number] Name: ROSIE FRANCO Rep #: [id number] : 1960 F 64 From: Xin Belle MD PCP: CATRINA Mcmahan Status: REG CLI Study: Abdomen W/WO IV Contrast Date of Exam: 5 Exam# [id number] Ordering Dr: Blanka Recio PROCEDURE: ABDOMEN W/WO IV CONTRAST 11/24/2024 REASON FOR EXAM: LIVER DISEASE TECHNIQUE: Abdomen CT without and with intravenous contrast. Postcontrast images were obtained in the arterial and portal venous phase. Coronal and Sagittal reconstruction series were provided. One or more dose reduction techniques were used (e.g., Automated exposure control, adjustment of the mA and/or kV according to patient size, use of iterative reconstruction technique. COMPARISON: 10/30/2024 FINDINGS: Lower chest: Unremarkable. Liver: There is a focal area of steatosis in the left hepatic lobe, corresponding to the abnormality seen on the previous ultrasound. There is a punctate cyst in the right hepatic lobe measuring 5 mm. Biliary/gallbladder: Unremarkable. Pancreas: Unremarkable. Spleen: Unremarkable. Adrenal glands: Unremarkable. Kidneys: There is an irregular hypodense lesion at the upper pole of the left kidney measuring 9.4 x 9.4 x 17.4 mm. A tiny cyst is present in the upper pole of the right kidney measuring 7 mm. Gastrointestinal/perit oneum: No acute abnormality.Mild colonic diverticulosis is present.The appendix is unremarkable.No free air or free fluid. Vascular: Unremarkable. Lymph nodes: No enlarged lymph nodes by CT size criteria. Bones: Unremarkable. Soft tissues: Unremarkable. CT/Abdomen W/WO IV Contrast IMPRESSION: 1. Focal steatosis in the left hepatic lobe, corresponds to the abnormality seen on the previous ultrasound. 2. Irregular cystic lesion in the upper pole of the left kidney. A follow-up multi phase CT or MRI is recommended in 6 months. Reading Location: [facility] CC: HR SPECIALIST-C Blanka Recio Garment Worker: Signed Normal [facility] Abdomen Limitedon 10-30-2024 Abdomen Limited [facility] Services [address] [place] [address] Abdomen Limited MR#: [id number] Acct: [id number] Name: ROSIE FRANCO Rep #: [id number] : 1960 F 64 From: Dionte Heredia MD PCP: CATRINA Mcmahan Status: REG CLI Study: Abdomen Limited Date of Exam: 10/30/24 Exam# [id number] Ordering Dr: Blanka Recio EXAM: US Abdomen Limited, Right Upper Quadrant CLINICAL INDICATION: TECHNIQUE: Real-time ultrasound of the right upper quadrant with image documentation. COMPARISON: No relevant prior studies available. FINDINGS: LIVER: Ill-defined echogenic lesion of the left liver measuring 2.9 x 4.4 x 2.0 cm could be a cavernous hemangioma. Further evaluation with MRI or CT with contrast using liver mass protocol is recommended. Liver measures up to 13.8 cm. Fatty infiltration of the liver. No intrahepatic bile duct dilation. GALLBLADDER: Unremarkable. No gallstones. COMMON BILE DUCT: Unremarkable as visualized. No stones. No dilation. Common bile duct measures 0.42 cm in diameter. PANCREAS: Unremarkable as visualized. RIGHT KIDNEY: Right renal cyst measuring up to 0.9 cm. No stones. No hydronephrosis. The right kidney measures 9.9 x 5.3 x 4.7 cm. US/Abdomen Limited IMPRESSION: 1. Ill-defined echogenic lesion of the left liver measuring 2.9 x 4.4 x 2.0 cm could be a cavernous hemangioma. Further evaluation with MRI or CT with contrast using liver mass protocol is recommended. 2. Fatty infiltration of the liver. Reading Location: [place] CC: CATRINA Recio Garment Worker: Signed [facility] Ova and Parasites 8623on OP OVA AND PARASITES EXAM, ROUTINE These results were obtained using wet preparation(s) and trichrome stained smear. This test does not include testing for Crytosporidium parvum, Cyclospora, or Microsporidia. One negative specimen does not rule out the possibility of a parasitic infection. TESTING PERFORMED AT [facility]. ORIGINAL REPORT ON FILE IN LAB CONTAINS ADDITIONAL TEST SITE INFORMATION. Ova/Parasite Exam NO OVA, CYSTS, OR PARASITES FOUND. [facility] Comment on above: Performed By: #### M 100.6796, M600.5000, M100.637, M100.0605 ####[facility] [address] [facility] [place], [place], [id number] ENTERIC PATHOGEN PANEL STOOL on 10-25-2024 EP PANEL Normal Reference Ran ge = Not Detected Nucleic acid amplification test method Not detected for Campylobacter group, Salmonella species, Shigella species, Vibrio Group, Yersinia enterocolitica, EHEC (Shiga Toxin 1, Shiga Toxin 2), Norovirus Gl/Gll, and Rotavirus A. Other common stool pathogens are not detected on this panel include: Aeromonas/Plesiomonas or parasites. Order testing for these organisms separately if suspected. This is an amplified DNA test which makes it both specific and sensitive. CAMPYLOBACTER Not Detected Norovirus Not Detected Rotavirus Not Detected Salmonella Not Detected Shiga Toxin Not Detected Shigella sp. Not Detected VIBRIO Not Detected Yersinia Not Detected [facility] Comment on above: Performed By: #### M 100.6796, M600.5000, M100.637, M100.0605 ####[facility] [address] [place], [place], [id number] Absolute lymphocyte countOrd ered By: Blankaramin Recio on 10-24-2024 Lymphocytes Auto (Unsp spec) [#/Vol] 5.73 10*3/uL High 0.83-4.51 [facility] Absolute neutrophil countOrd ered By: [facility] on 10-24-2024 Neutrophils (Bld) [#/Vol] 2.9 10*3/uL 2.0-7.7 [facility] Automated lymphocyte count a s percentage of total leukocytesOrdered By: Blanka Hemal on 10-24-2024 Lymphocytes/100 WBC Auto (Unsp spec) 60.7 % High 19-41 [facility] BUN/creatinine ratioOrdered By: [facility] on 10-24-2024 Urea nitrogen/Creatinine [Mass ratio] 7.4 mg/mg Low 10-20 [facility] Basophil percentageOrdered B y: [facility] on 10-24-2024 Basophils/100 WBC (Bld) 0.3 % 0-1 [facility] Bilirubin, totalOrdered By: [facility] on 10-24-2024 Bilirubin [Mass/Vol] 0.26 mg/dL 0.00-1.30 [facility] Blood manual differential co mment interpretation (narrative result)Ordered By: [facility] on 10-24-2024 Manual differential comment Callum (Bld) [Interp] COMMENT [facility] Comment on above: LYMPHOCYTOSIS. C. difficile DNA MELANIA+probe Q l (Unsp spec)Ordered By: [facility] on 10-24-2024 Clostridioides difficile (PCR) [facility] CBC W/Diff, Automatedon 10-01 SMEAR COMMENT COMMENT Normal [facility] Comment on above: Result Comment: LYMP HOCYTOSIS. Performed By: #### L 100.0100, L500.4050 ####[facility] [address] [place], [place], [id number] CDIFF (PCR)on 10-24-2024 CDIFF A positive C. difficile molecular test does not differentiate between an active C. difficile infection and C. difficile colonization. Use clinical judgement and paired toxin/antigen testing to identify true infection and need for treatment. C diff DNA Spec Ql MELANIA+probe Reference Range: Negative Lovely GeneXpert: polymerase chain reaction (PCR) 027 027 NAP1-B1 Presumptive Negative *for epidemiolologic???use C. Diff PCR Negative- No toxigenic C. Diff Detected Normal [facility] Comment on above: Performed By: #### M 100.6796, M600.5000, M100.637, M100.0605 ####[facility] [address] [place], [address] Clostridium difficile detect ion by polymerase chain reactionOrdered By: Blanka Recio on 10-24-2024 C. difficile DNA MELANIA+probe Ql (Unsp spec) [facility] Comprehensive Metabolic Prof ilon 10-24-2024 Albumin [Mass/Vol] 4.1 g/dL Normal 3.4-4.8 [facility] Comment on above: Performed By: #### L 500.4050 ####[facility] [address] [place] [place], [address] Albumin/Globulin [Mass ratio] 1.7 {ratio} Normal 0.9-2.4 [facility] Comment on above: Performed By: #### L 500.4050 ####[facility] [address] [place], [address] ALK PHOS 82 U/L Normal 35-104 [facility] Comment on above: Performed By: #### L 500.4050 ####[facility] [address] [place], [address] ALT [Catalytic activity/Vol] 125 U/L High <=34 [facility] Comment on above: Performed By: #### L 500.4050 ####[facility] [address] [place], [address] Anion gap [Moles/Vol] 14 mmol/L Normal 5-15 [facility] Comment on above: Performed By: #### L 500.4050 ####[facility] [address] [place], [address] AST [Catalytic activity/Vol] 143 U/L High <=31 [facility] Comment on above: Performed By: #### L 500.4050 ####[facility] [address] [place], [address] Bilirubin [Mass/Vol] 0.26 mg/dL Normal 0.00-1.30 [facility] Comment on above: Performed By: #### L 500.4050 ####[facility] [address] [place], [address] BUN/CRE 7.4 RATIO Low 10-20 [facility] Comment on above: Performed By: #### L 500.4050 ####[facility] [address] [place], [address] Calcium [Mass/Vol] 9.6 mg/dL Normal 7.6-11.0 [facility] Comment on above: Performed By: #### L 500.4050 ####[facility] [address] [place], [address] Chloride [Moles/Vol] 95 mmol/L Low 96-108 [facility] Comment on above: Performed By: #### L 500.4050 ####[facility] [address] [place], [address] CO2 [Moles/Vol] 22.1 mmol/L Normal 22.0-29.0 [facility] Comment on above: Performed By: #### L 500.4050 ####[facility] [address] [place], [address] Creatinine [Mass/Vol] 1.2 mg/dL High 0.6-1.0 [facility] Comment on above: Performed By: #### L 500.4050 ####[facility] [address] [place], [address] GFR/1.73 sq M.predicted among non-blacks MDRD (S/P/Bld) [Vol rate/Area] 52 mL/min/{1.73_m2} Low >60 [facility] Comment on above: Result Comment: mL/m in/1.73m2 CKD-EPI Creatinine Equation (2020) Performed By: #### L 500.4050 ####[facility] [address] [place], [address] Globulin (S) [Mass/Vol] 2.4 g/dL Normal 2.2-4.2 [facility] Comment on above: Performed By: #### L 500.4050 ####[facility] [address] [place], [address] Glucose [Mass/Vol] 92 mg/dL Normal 70-99 [facility] Comment on above: Performed By: #### L 500.4050 ####[facility] [address] [place], [address] Potassium [Moles/Vol] 4.2 mmol/L Normal 3.3-5.1 [facility] Comment on above: Performed By: #### L 500.4050 ####[facility] [address] [place], [address] Sodium [Moles/Vol] 131 mmol/L Low 133-145 [facility] Comment on above: Performed By: #### L 500.4050 ####[facility] [address] [place], [address] T PROT 6.5 g/dL Normal 5.9-8.4 [facility] Comment on above: Performed By: #### L 500.4050 ####[facility] [address] [place], [address] Urea nitrogen [Mass/Vol] 9 mg/dL Normal 4-19 [facility] Comment on above: Performed By: #### L 500.4050 ####[facility] [address] [place], [address] ALB Normal 3.4-4.8 [facility] Comment on above: Result Comment: PUTT ING UNDER DIFFERENT REQ Performed By: #### L 100.0100, L500.4050 ####[facility] [address] [place], [address] ALK PHOS Normal 35-104 [facility] Comment on above: Result Comment: PUTT ING UNDER DIFFERENT REQ Performed By: #### L 100.0100, L500.4050 ####[facility] [address] [place], [address] ALT Normal <=34 [facility] Comment on above: Result Comment: PUTT ING UNDER DIFFERENT REQ Performed By: #### L 100.0100, L500.4050 ####[facility] [address] [place], [address] AST Normal <=31 [facility] Comment on above: Result Comment: PUTT ING UNDER DIFFERENT REQ Performed By: #### L 100.0100, L500.4050 ####[facility] [address] [place], [address] BUN Normal 4-19 [facility] Comment on above: Result Comment: PUTT ING UNDER DIFFERENT REQ Performed By: #### L 100.0100, L500.4050 ####[facility] [address] [place], [address] BUN/CRE Normal 10-20 [facility] Comment on above: Result Comment: PUTT ING UNDER DIFFERENT REQ Performed By: #### L 100.0100, L500.4050 ####[facility] [address] [place], [address] Calcium Normal 8.5-10.1 [facility] Comment on above: Result Comment: PUTT ING UNDER DIFFERENT REQ Performed By: #### L 100.0100, L500.4050 ####[facility] [address] [place], [address] CL Normal 98-107 [facility] Comment on above: Result Comment: PUTT ING UNDER DIFFERENT REQ Performed By: #### L 100.0100, L500.4050 ####[facility] [address] [place], [address] CO2 Normal 21.0-32.0 [facility] Comment on above: Result Comment: PUTT ING UNDER DIFFERENT REQ Performed By: #### L 100.0100, L500.4050 ####[facility] [address] [place], [address] CREAT,SERUM Normal 0.6-1.0 [facility] Comment on above: Result Comment: PUTT ING UNDER DIFFERENT REQ Performed By: #### L 100.0100, L500.4050 ####[facility] [address] [place], [address] eGFR Normal >60 [facility] Comment on above: Result Comment: PUTT ING UNDER DIFFERENT REQ Performed By: #### L 100.0100, L500.4050 ####[facility] [address] [place], [address] GAP Normal 5-15 [facility] Comment on above: Result Comment: PUTT ING UNDER DIFFERENT REQ Performed By: #### L 100.0100, L500.4050 ####[facility] [address] [place], [address] GLU Normal 70-99 [facility] Comment on above: Result Comment: PUTT ING UNDER DIFFERENT REQ Performed By: #### L 100.0100, L500.4050 ####[facility] [address] [place], [address] Potassium Normal 3.5-5.1 [facility] Comment on above: Result Comment: PUTT ING UNDER DIFFERENT REQ Performed By: #### L 100.0100, L500.4050 ####[facility] [address] [place], [address] T BILI Normal 0.00-1.30 [facility] Comment on above: Result Comment: PUTT ING UNDER DIFFERENT REQ Performed By: #### L 100.0100, L500.4050 ####[facility] [address] [place], [address] T PROT Normal 5.9-8.4 [facility] Comment on above: Result Comment: PUTT ING UNDER DIFFERENT REQ Performed By: #### L 100.0100, L500.4050 ####[facility] [address] [place], [address] Comprehensive Metabolic Profil Normal 136-145 [facility] Comment on above: Result Comment: PUTT ING UNDER DIFFERENT REQ Performed By: #### L 100.0100, L500.4050 ####[facility] [address] [place], [address] Creatinine [Moles/Vol]Ordere d By: Blanka Recio on 10-24-2024 Creatinine [Mass/Vol] 1.2 mg/dL High 0.6-1.0 [facility] Eosinophil percentageOrdered By: Blanka Recio on 10-24-2024 Eosinophils/100 WBC (Bld) 3.2 % 0-5 [facility] Erythrocyte distribution wid th ratioOrdered By: Blanka Recio on 10-24-2024 Erythrocyte distribution width (RBC) [Ratio] 12.0 % 11.6-14.6 [facility] Erythrocyte distribution wid th standard deviationOrdered By: Blankaramin Recio on 10-24-2024 Erythrocyte distribution width (RBC) [Entitic vol] 49.0 fL High 35.1-43.9 [facility] Erythrocyte distribution width (RBC) [Ratio] 49.0 fl High 35.1-43.9 [facility] GFR/1.73 sq M.predicted balwinder g non-blacks MDRD (S/P/Bld) [Vol rate/Area]Ordered By: Blanka Recio on 10-24-2024 Estimated GFR (MDRD) Non-Af Amer 52 Low >60 [facility] Comment on above: mL/min/1.73m2 CKD-EP I Creatinine Equation (2020) Glomerular filtration rate ( GFR) estimation/1.73 sq m using serum, plasma, or whole bOrdered By: Blanka Recio on 10-24-2024 GFR/1.73 sq M.predicted among non-blacks MDRD (S/P/Bld) [Vol rate/Area] 52 mL/min/{1.73_m2} Low >60 [facility] Comment on above: mL/min/1.73m2 CKD-EP I Creatinine Equation (2020) Hematocrit Auto (Bld) [Volum e fraction]Ordered By: Blanka Recio on 10-24-2024 Hematocrit (Bld) [Volume fraction] 31.1 % Low 37-47 [facility] Hemoglobin measurementOrdere d By: Blanka Recio on 10-24-2024 Hemoglobin (Bld) [Mass/Vol] 11.1 g/dL Low 12.0-15.0 [facility] Immature granulocytes/100 WB C Auto (Bld)Ordered By: Blanka Recio on 10-24-2024 Immature granulocytes/100 WBC (Bld) 0.300 % 0.0-0.9 [facility] Comment on above: IG% - Immature Granu locytes (promyelocytes, myelocytes and metamyelocytes) > 1% indicates that a LEFT SHIFT is Present. Laboratory - Chemistry and C hemistry - challengeOrdered By: Blanka Recio on 10-24-2024 AST [Catalytic activity/Vol] 143 U/L High <32 [facility] Lactoferrin IA Ql (Stl)Order ed By: Blanka Recio on 10-24-2024 Stool Lactoferrin [facility] Lymphocytes Auto (Unsp spec) [#/Vol]Ordered By: Blanka Recio on 10-24-2024 Lymphocytes (Bld) [#/Vol] 5.73 10*3/uL High 0.83-4.51 [facility] Lymphocytes/100 WBC Auto (Un sp spec)Ordered By: Blanka Recio on 10-24-2024 Lymphocytes/100 WBC (Bld) 60.7 % High 19-41 [facility] MCV (mean corpuscular volume ) determinationOrdered By: Blanka Recio on 10-24-2024 MCV (RBC) [Entitic vol] 110.3 fL High 81-99 [facility] Manual differential comment Callum (Bld) [Interp]Ordered By: Blanka Recio on 10-24-2024 Differential Comment COMMENT [facility] Comment on above: LYMPHOCYTOSIS. Mean corpuscular hemoglobin (MCH) determinationOrdered By: Blanka Recio on 10-24-2024 MCH (RBC) [Entitic mass] 39.4 pg High 27.0-32.0 [facility] Mean corpuscular hemoglobin concentration (MCHC) determinationOrdered By: Blanka Recio on 10-24-2024 MCHC (RBC) [Mass/Vol] 35.7 g/dL 32-36 [facility] Mean platelet volume determi nationOrdered By: Blanka Recio on 10-24-2024 Platelet mean volume (Bld) [Entitic vol] 9.8 fL 6.2-12.0 [facility] Monocyte percentageOrdered B y: Blanka Recio on 10-24-2024 Monocytes/100 WBC (Bld) 5.0 % 0-10 [facility] Neutrophil percentageOrdered By: Blanka Recio on 10-24-2024 Neutrophils/100 WBC (Bld) 30.5 % Low 47-70 [facility] Nucleated red blood cell per centageOrdered By: Blanka Recio on 10-24-2024 Nucleated RBC/100 WBC (Bld) [Ratio] 0 % 0-5 [facility] Ova and parasitesOrdered By: Blanka Recio on 10-24-2024 Ova and Parasites [facility] Platelet countOrdered By: Ra jennifer eRcio on 10-24-2024 Platelets (Bld) [#/Vol] 203 10*3/uL 150-450 [facility] RBC Auto (Bld) [#/Vol]Ordere d By: Blanka Recio on 10-24-2024 RBC (Bld) [#/Vol] 2.82 10*6/uL Low 4.2-5.4 [facility] Serum globulin measurementOr dered By: Blanka Recio on 10-24-2024 Globulin (S) [Mass/Vol] 2.4 g/dL 2.2-4.2 [facility] Serum glucose measurement (m ass/volume)Ordered By: Blanka Recio on 10-24-2024 Glucose [Mass/Vol] 92 mg/dL 70-99 [facility] Serum or plasma alanine francis otransferase (ALT) measurementOrdered By: Blanka Recio on 10-24-2024 ALT [Catalytic activity/Vol] 125 U/L High <35 [facility] Serum or plasma albumin semaj urement (mass/volume)Ordered By: Blanka Recio on 10-24-2024 Albumin [Mass/Vol] 4.1 g/dL 3.4-4.8 [facility] Serum or plasma albumin/glob ulin mass ratioOrdered By: Blanka Recio on 10-24-2024 Albumin/Globulin [Mass ratio] 1.7 {ratio} 0.9-2.4 [facility] Serum or plasma alkaline alexia sphatase measurementOrdered By: Blanka Recio on 10-24-2024 ALP [Catalytic activity/Vol] 82 U/L 35-104 [facility] Serum or plasma anion gap de termination (moles/volume)Ordered By: Blanka Recio on 10-24-2024 Anion gap [Moles/Vol] 14 mmol/L 5-15 [facility] Serum or plasma calcium semaj urement (mass/volume)Ordered By: Blanka Recio on 10-24-2024 Calcium [Mass/Vol] 9.6 mg/dL 7.6-11.0 [facility] Serum or plasma creatinine m easurement (moles/volume)Ordered By: Blanka Recio on 10-24-2024 Creatinine [Moles/Vol] 1.2 mg/dL High 0.6-1.0 [facility] Serum or plasma potassium me asurementOrdered By: Blanka Recio on 10-24-2024 Potassium [Moles/Vol] 4.2 mmol/L 3.3-5.1 [facility] Serum or plasma sodium measu rement (moles/volume)Ordered By: Blanka Recio on 10-24-2024 Sodium [Moles/Vol] 131 mmol/L Low 133-145 [facility] Serum or plasma urea nitroge n measurement (mass/volume)Ordered By: Blanka Recio on 10-24-2024 Urea nitrogen [Mass/Vol] 9 mg/dL 4-19 [facility] Stool Lactoferrin/WBCon 10-01 WBCST Normal Reference Ran ge = Negative Fecal WBC Lactoferrin Negative: No Fecal WBC Lactoferrin present Normal [facility] Comment on above: Performed By: #### M 100.6796, M600.5000, M100.637, M100.0605 ####[facility] [address] [place], [place], [address] Stool enteric pathogen panel by probe and target amplification methodOrdered By: Blanka Recio on 10-24-2024 Enteric Bacteriology [facility] Stool lactoferrin detection by immunoassayOrdered By: Blanka Recio on 10-24-2024 Lactoferrin IA Ql (Stl) [facility] Total proteinOrdered By: Leda Recio on 10-24-2024 Protein [Mass/Vol] 6.5 g/dL 5.9-8.4 [facility] White blood cell (WBC) count Ordered By: Blanka Recio on 10-24-2024 WBC (Bld) [#/Vol] 9.4 10*3/uL 4.4-11.0 [facility] Cardiology Visit Reporton Cardiology Visit Report [facility] [address] [place], [place] [address] OFFICE VISIT Date of Service: 05/31/24 MR#: [id number] Acct: [id number] Name: ROSIE FRANCO Rep #: [id number] : 1960 Provider: Dr. Ish Reyes MD Age/Sex: 63/F Location[facility] Status: Signed [facility] History of Present Illness Details: This lady is here for follow-up visit. She has not been having any shortness of breath or chest pain for more than 2 months now. She has had an exercise stress Myoview. It was negative for inducible ischemia. Echocardiogram showed normal LV systolic function. Mild mitral valve regurgitation was noted. This morning, patient has been feeling lightheaded. She admits to some vertigo as well. No nausea or vomiting. No diaphoresis. No ear ache or pain. Patient was started on carvedilol last month for her blood pressure log from home which showed elevated blood pressure readings along with tachycardia. Per patient, since starting on the carvedilol, she feels much better. Intake Vital Signs 03/15/24 11:43 05/31/24 08:21 Height 5 ft 1 in 5 ft 1 in Weight: 131 lb BMI 24.7 BP 131/75 H Blood Pressure Location Lt brachial Position Sitting Respiration 18 Pulse 75 Pulse Source NIBP Intake Visit Reasons: 3 M [employer] Supervisor Required: No Accompanied by: Self Is patient in pain?: No Allergies Sulfa (Sulfonamide Antibiotics) Allergy (Verified 05/31/24 09:28) Rash Medications ???Medication ???Instructions ???Recorded ???Confirmed ???Type alprazolam 0.5 mg tablet 1 mg PO BID PRN anxiety 03/01/24 05/31/24 History citalopram 10 mg tablet 10 mg PO DAILY 03/01/24 05/31/24 History carvedilol 6.25 mg tablet 6.25 mg PO BID #60 tabs 05/16/24 Rx Ejection fraction %: 60 Have you fallen in the past year?: No PFSH Medical History (Updated 05/31/24 @ 09:[address] Ish Reyes MD) Essential hypertension Hx of fracture of clavicle Hypotension Fatigue Nicotine dependence Open wound of finger with complication Infected puncture wound of finger Swelling Hemorrhoids SOB (shortness of breath) Surgical History Hx of section Hx of hysterectomy Family History Father Heart disease Diabetes Hypertension Mother Thyroid disorder Hypertension Social History Smoking Status: Former smoker smoking status stop date: 03/31/24 how long ago did patient quit smoking: [employer] Study; Escape Study quit status: considering quitting alcohol intake: current alcohol intake frequency: a few times a week Alcohol type: wine substance use type: does not use caffeine: Yes Type: coffee Number of servings: 1 ROS Const Const: Positive for fatigue; Negative for weakness, headache(s) or weight gain ENT ENT: Positive for dizziness; Negative for headache(s), Nosebleed/epistaxis or balance problems Cardio Chest Pain: No Palpitations: Yes feels like its: fast, pounding and other (tightness; accompanied anxiety) Edema: None Muscle aches with walking: None Resp Respiratory: Negative for SOB with activity, SOB at rest or SOB orthopnea SOB lying down GI GI: Positive for heartburn (with certain foods); Negative nausea or vomiting Musc Musc: Negative for muscle aches/ myalgia, muscle weakness, joint pain or balance problems Neuro Neuro: Positive for dizziness and lightheadedness; Negative for near syncope, syncope, headache(s) or weakness Endo Endo: Positive for fatigue Psych Psych: Positive for anxiety Cardiology Exam Const Appearance: comfortable and no acute distress Nutritional Appearance: well nourished Neck Neck: no JVD Carotids: Negative bruit Chest Auscultation: Bilateral: Clear to Auscultation Cardio Rate: regular rate Rhythm: regular rhythm Heart sounds: S1 normal and S2 normal Neuro General: patient alert, patient awake and patient oriented x3 Extremities Lower Extremity Edema: None: Bilateral Supplemental Info Supplemental Information Echocardiogram from 05/03/2024: Interpretation Summary The left ventricular ejection fraction is 60 %. Mild (1+) mitral valve insufficiency. Stress test from 05/03/2024: Impression: 1. Technically adequate exercise stress test at 82% of maximal predicted heart rate. Functional capacity consider below average. 2. Peak exercise ECG with no ischemic changes. Appropriate blood pressure response to exercise. 3. No significant cardiac dysrhythmias noted. Isolated PVC with exercise. 4. Rest and stress SPECT Cardiolite nuclear imaging demonstrate relative uniform tracer uptake and myocardial perfusion appearing within normal limits. 5. The gated Cardiolite study rep (more content not included)... Normal [facility] Echo Completeon 05-03-2024 Echo [facility] [place] [address] Echo Complete 05/03/24812 MR#: [id number] Acct: [id number] Name: ROSIE FRANCO Rep #: [id number] : 1960 63 From: Ish Reyes MD Attending Dr: Dr. Ish Reyes MD Status: REG CLI Ordering Dr: Ish Reyes MD Date: 05/03/24 Location: [facility] Sex: F C Admitted: Reason For Study: PINO Procedure This was a 2D Doppler, Color Flow transthoracic echocardiogram. Exam performed in department. Left Ventricle Normal size and thickness. The left ventricular ejection fraction is 60 %. Normal diastology for age. Right Ventricle Normal right ventricle. Atria The left and right atria are normal. Mitral Valve Mild (1+) mitral valve insufficiency. Tricuspid Valve Normal pulmonary artery pressure. Trivial tricuspid valve insufficiency. Aortic Valve Trisinus/trileaflet aortic valve. Pulmonic Valve The pulmonic valve is not well visualized. Great Vessels Normal sized aortic root. Pericardium/Pleural No pericardial effusion. Epicardial fat. MMode/2D Measurements Calculations LVIDd: 4.6 cm IVSd: 0.89 cm LVOT diam: 2.0 cm LVIDs: 3.7 cm LVPWd: 0.66 cm LVOT area: 3.2 cm2 RVDd: 2.5 cm FS: 20.0 % Ao root diam: 2.7 cm LAV(MOD-bp): 31.1 ml LVAd ap4: 23.8 cm2 LA dimension: 3.0 cm LAV(MOD-bp) Indexed: 20.1 ml/m2 LVLd ap4: 7.0 cm LAV(MOD-sp2): 43.2 ml EDV(MOD-sp4): 66.6 ml LAV(MOD-sp4): 23.9 ml EDV(sp4-el): 68.7 ml LVAs ap4: 16.0 cm2 LVLs ap4: 6.4 cm ESV(MOD-sp4): 34.7 ml ESV(sp4-el): 34.2 ml EF(MOD-sp4): 48.0 % EF(sp4-el): 50.2 % SV(MOD-sp4): 32.0 ml SV(sp4-el): 34.5 ml LA A4 area: 11.2 cm2 RA A4 area: 9.8 cm2 TAPSE: 1.6 cm Time Measurements MV dec time: 0.23 sec Doppler Measurements Calculations MV E max sharron: 54.9 cm/sec Lat Peak E' Sharron: 7.2 cm/sec Med Peak E' Sharron: 7.1 cm/sec MV A max sharron: 66.3 cm/sec E/E' lat: 7.6 E/E' med: 7.7 MV E/A: 0.83 MV V2 max: 74.1 cm/sec MV P1/2t max sharron: 69.5 cm/sec Ao V2 max: 97.8 cm/sec MV max P.2 mmHg MV P1/2t: 71.8 msec Ao max P.8 mmHg MV V2 mean: 37.4 cm/sec Ao V2 mean: 74.2 cm/sec MV mean P.68 mmHg MV dec slope: 283.6 cm/sec2 Ao mean P.4 mmHg MV V2 VTI: 29.1 cm MVA(P1/2t): 3.1 cm2 Ao V2 VTI: 21.8 cm AV (velocity ratio): 0.82 MVA(VTI): 2.0 cm2 AMIE(I,D): 2.6 cm2 AMIE(V,D): 2.5 cm2 LV V1 max: 75.4 cm/sec MR max sharron: 587.7 cm/sec SV(LVOT): 57.1 ml LV V1 max P.3 mmHg MR max P.1 mmHg LV V1 mean P.4 mmHg LV V1 mean: 55.6 cm/sec LV V1 VTI: 17.8 cm PA V2 max: 54.0 cm/sec TR max sharron: 198.6 cm/sec PA max PG (full): 0.74 mmHg TR max P.8 mmHg ECHO/Echo Complete Interpretation Summary The left ventricular ejection fraction is 60 %. Mild (1+) mitral valve insufficiency. Ordering Physician: Ish Reyes Referring Physician: Ish Reyes Performed By: Benito Lara and Student 05/03/24 1219 Date Ish Reyes MD CC: HR SPECIALIST-C Blanka Recio; Dr. Ish Reyes MD Date Dictated: 05/03/24812 Date Transcribed: 05/03/241218 Garment Worker: Signed Normal [facility] Stress Reporton 05-03-2024 Stress Report [facility] [address] [place] [address] MR#: [id number] Acct: [id number] Name: ROSIE FRANCO Rep #: [id number] : 1960 63 From: Ish Reyes MD Primary Care: CATR[facility] Mcmahan Status: R EG CLI Referring Dr: Ish Reyes MD Sex: F C Stress Test Report Date: 05/03/2024 Procedure: Exercise tolerance test/imaging study Indications: Dyspnea on exertion Consent: Per the patient Procedure: The patient exercised on a Woo protocol for 3 minutes and 42 seconds achieving a peak heart rate of 129 bpm (82% predicted maximal heart rate) with a peak blood pressure 160/82 mmHg and a peak MET capacity of 6.2 METs. The baseline ECG demonstrated sinus rhythm. The peak exercise ECG demonstrated sinus tachycardia with no ischemic changes. Rare PVC was noted. The functional capacity was considered suboptimal. There was no complaints of chest discomfort during exercise or recovery. The examination was discontinued secondary to overall tiredness and inability to keep up with the treadmill. The patient was injected with 11.5 mCi of technetium 99m Cardiolite and subsequently rest SPECT Cardiolite nuclear imaging was obtained in the horizontal long, vertical long, and short axis views. Post-exercise, the patient was injected with 33.9 mCi of technetium 99m Cardiolite and subsequently stress SPECT Cardiolite nuclear imaging was obtained in the horizontal long, vertical long, and short axis views. A gated Cardiolite study at peak stress was obtained. Rest and stress SPECT Cardiolite nuclear imaging status post realignment, normalization, and attenuation correction, demonstrates the appearance of relative uniform tracer uptake and myocardial perfusion appearing within normal limits. There is end systolic thickening and brightening. The gated Cardiolite study demonstrates myocardial thickening and inward wall motion. The reported LVEF is 69%. Impression: 1. Technically adequate exercise stress test at 82% of maximal predicted heart rate. Functional capacity consider below average. 2. Peak exercise ECG with no ischemic changes. Appropriate blood pressure response to exercise. 3. No significant cardiac dysrhythmias noted. Isolated PVC with exercise. 4. Rest and stress SPECT Cardiolite nuclear imaging demonstrate relative uniform tracer uptake and myocardial perfusion appearing within normal limits. 5. The gated Cardiolite study reports an LVEF of 69%. This note was generated with SmartAssetation software. It may contain incorrect words, spelling, and punctuation that were not noted in checking the note before signing. 05/03/24 1232 Date Ish Reyes MD CC: HR SPECIALIST-C Blanka Recio; Dr. Ish Reyes MD Date Dictated: 05/03/24 1229 Date Transcribed: 05/03/241228 Garment Worker: TANIA Signed Normal [facility] Cardiology Visit Reporton Cardiology Visit Report [facility] [address] [place] [address] OFFICE VISIT Date of Service: 03/15/24 MR#: [id number] Acct: [id number] Name: ROSIE FRANCO Rep #: [id number] : 1960 Provider: Dr. Ish Reyes MD Age/Sex: 63/F Location[place] [facility] Status: Signed [facility] History of Present Illness Details: This lady has past medical history significant for anxiety disorder and nicotine dependence. According to her, she was on lisinopril 5 mg once daily for high blood pressure for about a year. But then she started noticing her blood pressure going too low. Per her, she would feel drained with that and almost fell asleep at the steering wheel. Her lisinopril was subsequently stopped. Patient is concerned about her blood pressure. According to her, sometimes it crashes. Other times it is high. She has brought her in log of her blood pressure readings at home today. Most of the time, her blood pressures in the systolic 110s to 130s. There have only been a couple of times where and her blood pressure was systolic 89 mmHg or thereabouts. A few readings showed systolic blood pressure in the 140s. According to the patient, her blood pressure is high when she gets her anxiety attack. Patient complains of occasional chest discomfort. Per her, this is when her blood pressure is too high. No radiation to the arm neck or jaw. He denies any chest pains with exertion however she does get short of breath with moderate to strenuous exertion. No orthopnea. No PND. No ankle edema. No palpitations. No syncope or presyncope. Denies any severe headaches. Orthostatic blood pressure checked in the office today was negative for any orthostatic changes. Denies any involuntary weight loss. No change in bowel habits. No diarrhea. Intake Vital Signs 03/15/24 11:43 03/15/24 11:56 03/15/24 11:57 03/15/24 11:57 Height 5 ft 1 in Weight: 128 lb BMI 24.1 BP 114/73 132/82 H 119/73 126/78 H Blood Pressure Location Lt brachial Rt brachial Rt brachial Rt brachial Position Sitting Supine Sitting Standing Respiration 16 Pulse 80 84 80 83 Pulse Source Monitor Monitor Monitor Monitor Intake Visit Reasons: HTN (SELF) Fabrication Department Supervisor Required: No Accompanied by: Is patient in pain?: No Allergies Sulfa (Sulfonamide Antibiotics) Allergy (Verified 03/15/24 11:45) Rash Medications ???Medication ???Instructions ???Recorded ???Confirmed ???Type alprazolam 0.5 mg tablet 1 mg PO BID PRN anxiety 03/01/24 03/01/24 History citalopram 10 mg tablet 10 mg PO DAILY 03/01/24 03/01/24 History PFSH Medical History Essential hypertension Hx of fracture of clavicle Hypotension Fatigue Nicotine dependence Open wound of finger with complication Infected puncture wound of finger Swelling Hemorrhoids SOB (shortness of breath) Surgical History Hx of section Hx of hysterectomy Family History Father Heart disease Diabetes Hypertension Mother Thyroid disorder Hypertension Social History Smoking Status: Current every day smoker quit status: considering quitting alcohol intake: current alcohol intake frequency: a few times a week Alcohol type: wine substance use type: does not use caffeine: Yes Type: coffee Number of servings: 1 ROS Const Const: Positive for fatigue, weakness, headache(s) and difficulty sleeping; Negative for frequent falls or excessive sweating Eyes Eyes: Negative for loss of peripheral vision, transient loss of vision, blurry vision, double vision or tunnel vision ENT ENT: Positive for headache(s), dizziness and balance problems; Negative for Nosebleed/epistaxis Cardio Chest Pain: Yes Frequency: other Character: tightness Location: mid sternal and left chest Duration: hours Palpitations: Yes feels like its: fast Resp Respiratory: Positive for SOB with activity; Negative for SOB at rest, SOB orthopnea SOB lying down, Cough or paroxysmal nocturnal dyspnea GI GI: Negative nausea, vomiting, heartburn or black,tarry stools : Negative for hematuria Musc Musc: Positive for balance problems; Negative for muscle aches/ myalgia, muscle weakness or joint pain Skin Skin: Negative non-healing lesions, rash or unusual bruising Neuro Neuro: Positive for dizziness, lightheadedness, headache(s) and weakness; Negative for near syncope, syncope, frequent falls, blurry vision, double vision or lack of coordination Nestor Hematologic/Lymphatic: Negative for easy bleeding or easy bruising Endo Endo: Positive for fatigue; Negative for excessive sweating or increased thirst/drinking Psych P (more content not included)... Normal [facility] Laboratory - Chemistry and C hemistry - challengeOrdered By: Blanka Recio on 04-27-2023 Free T4 [Mass/Vol] 0.70 ng/dL 0.76-1.46 [facility] No Panel InformationOrdered By: Blanka Recio on 04-27-2023 Thyroid Stimulating Hormone (TSH) 1.93 uIU/mL 0.358-3.74 [facility] Basophil percentageOrdered B y: Blanka Recio on 07-25-2023 Bilirubin [Mass/Vol] 0.70 mg/dL 0.20-1.00 [facility] Comment on above: For patients on eltr ombopag therapy, use of Dimension Foster TBIL is not recommended. Chloride [Moles/Vol] 101 mmol/L 98-107 [facility] Glucose [Mass/Vol] 102 mg/dL 74-106 [facility] Comment on above: Fasting Glucose resu lt from 100 to 125 mg/dL suggests IMPAIRED HOMEOSTASIS per A.D.A. criteria. Potassium [Moles/Vol] 4.1 mmol/L 3.5-5.1 [facility] Protein [Mass/Vol] 7.6 g/dL 6.4-8.2 [facility] Sodium [Moles/Vol] 134 mmol/L 136-145 [facility] Laboratory - Chemistry and C hemistry - challengeOrdered By: Blanka Recio on 03-23-2023 ALP [Catalytic activity/Vol] 84 U/L 45-117 [facility] ALT [Catalytic activity/Vol] 38 U/L 13-56 [facility] CO2 [Moles/Vol] 28.0 mmol/L 21.0-32.0 [facility] Globulin (S) [Mass/Vol] 3.4 g/dL 2.2-4.2 [facility] Urea nitrogen/Creatinine [Mass ratio] 10.7 mg/mg 10-20 [facility] No Panel InformationOrdered By: Blanka Recio on 03-23-2023 Estimated GFR (MDRD) Amer 70 mL/min >60 [facility] Comment on above: GFR Calc Estimated GFR (MDRD) Non-Af Amer 57 mL/min >60 [facility] Comment on above: Non- GFR Calc Serum or plasma albumin semaj urement (mass/volume)Ordered By: Blanka Recio on 03-23-2023 Albumin [Mass/Vol] 4.2 g/dL 3.2-5.0 [facility] Serum or plasma albumin/glob ulin mass ratioOrdered By: Blanka Recio on 03-23-2023 Albumin/Globulin [Mass ratio] 1.2 {ratio} 0.9-2.4 [facility] Serum or plasma calcium semaj urement (mass/volume)Ordered By: Blanka Recio on 03-23-2023 Calcium [Mass/Vol] 10.2 mg/dL 8.5-10.1 [facility] Serum or plasma creatinine m easurement (mass/volume)Ordered By: Blanka Recio on 03-23-2023 Creatinine [Mass/Vol] 1.03 mg/dL 0.55-1.02 [facility] Comment on above: The validity of the calculated GFR & GFRAA in patients over 70 years has not been determined. Clinical correlation is essential. Serum or plasma urea nitroge n measurement (mass/volume)Ordered By: Blanka Recio on 03-23-2023 Urea nitrogen [Mass/Vol] 11 mg/dL 7-18 [facility] Thin prep Papanicolaou smear with manual screeningOrdered By: Blanka Recio on 03-23-2023 Thin prep Papanicolaou smear with manual screening 33 U/L 15-37 [facility] Thin prep Papanicolaou smear with manual screening 5 5-15 [facility] RAMIREZ XR Chest 1 view-APon 09-30 RAMIREZ XR Chest 1 view-AP CHEST CLINICAL INDICATION: Employment physical TECHNIQUE: PA COMPARISON: None FINDINGS: The heart and mediastinum are normal. The lungs demonstrate no infiltrate or area of atelectasis. The costophrenic angles are sharp. The osseous structures are unremarkable. IMPRESSION: Normal chest. Report Dictated on Authenticated by: Deric Bolanos On: 10/13/2022 15:58 Read by: DERIC BOLANOS MD, Date: 10/13/2022 15:58 [facility] 06-10-2021 [facility] Telephone (ALLEMN) ROSIE FRANCO ([id number]) 1960 F Date Time Provider Department 06/10/21 UNKNOWN (HISTORICAL) ALLEMN During your visit today, we recorded the following information about you: Tamra Gallardo 06/10/2021 4:03 PM Signed Outside records received and imported Allergies As of Date: 06/10/2021 Noted Allergy Reaction EFFEXOR (VENLAFAXINE HCL) 04/24/2005 8 - GI Upset NAPRELAN (NAPROXEN SODIUM) 04/24/2005 8 - GI Upset Duck egg [Other] 08/17/2006 7 - Swelling SULFA (SULFONAMIDE ANTIBIOTICS) 04/23/2005 Date Reviewed: 10/05/2017 Reviewed by: Deric Mcdonald - Fully Assessed Reason for Visit: Received Outside Medical Records [[id number]] Prescriptions as of 06/10/2021 - VANCOMYCIN HCL (VANCOMYCIN, 25MG/ML, OPHTHALMIC DROPS, [facility],) Use 1 Drop in the left eye twice daily. - prednisoLONE acetate (PRED FORTE, ECONOPRED PLUS) 1 % ophthalmic suspension Use 1 Drop in the left eye twice daily. - DORZOLAMIDE HCL/TIMOLOL MALEAT (COSOPT OPHTHALMIC) Use in eyes twice daily. - MOXIFLOXACIN HCL (VIGAMOX OPHTHALMIC) Use 1 Drop in eyes every hour. - TOBRAMYCIN SULFATE (TOBRAMYCIN FORTIFIED, 13.57 MG/ML,) ophthalmic drops ([facility]) Use 1 Drop in the left eye every hour. - voriconazole (VFEND) 200 mg tablet Take 1 tablet by mouth twice daily. - PREDNISONE 10 MG TAB Take 4 pills po q day for 3 days, then take 2 pill po q day for 3 days, then take 1 pill po q day for 3 days - TRAZODONE 50 MG TAB Take one(1) tablet at bedtime. - hydrocortisone acetate(ANUSOL-HC 25 MG SUPPOSITORY) Unwrap and insert one(1) suppository rectally every 12 hours. - citalopram hydrobromide(CELEXA 20 MG TAB) Take one(1) tablet daily. 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 Negative results must be combined with clinical observations, patient history, and epidemiological information. Positive (DETECTED) result is for the presumptive identification of 2019-nCoV RNA. The 2019-nCoV RNA is generally detectable in upper and lower respiratory specimens during infection, however it can also be detected in stool. Positive results are indicative of active infection with 2019-nCoV but do not rule out bacterial infection or co-infection with other viruses. The agent detected may not be the definite cause of disease. INCONCLUSIVE and INVALID result signify that a negative or positive result could not be rendered often due to insufficient sample adequacy or quality. If clinically indicated, it is suggested that another sample is collected and retested. This test has not been cleared or approved by the FDA; however, the FDA has determined through the Emergency Use Authorization (EUA) process that such approval is not required at this time. This test is only authorized for the duration of time the declaration that circumstances exist to justify the authorization of the emergency use of in vitro diagnostic tests for the detection of SARS-CoV-2 virus and/or diagnosis of COVID-19 infection under section 564(b)(1) of the Act, 21 U.S.C. 360bbb-3(b)(1), unless the authorization is terminated or revoked sooner. [facility] ([facility]) is certified under CLIA-88 as qualified to perform high complexity testing. This tests analytical performance characteristics have been determined by [facility]. Testing is performed at [facility] is located at [address] [place] [address] (CLIA License #[id number], CAP #[id number]). Performed By: #### C OV19 #### [facility] [id number] [place] [address] CORONAVIRUS 2019 BY PCRon Lab Specimen Source Nasal, Nasopharyngeal Normal [facility] Comment on above: Performed By: #### C OV19 #### [facility] [address] [place] [id number] Vital Signs Date Time Vital Sign Value Performing Clinician Chelle barber 02-15-2025 09:01-0400 Body temperature 97.8 [degF] Blanka Hemal HR SPECIALIST-C Work Phone: [facility] 02-15-2025 09:01-0400 Body weight 63.95 kg Blanka Hemal HR SPECIALIST-C Work Phone: [facility] 02-15-2025 09:01-0400 Diastolic blood pressure 77 mm[Hg] Blanka Hemal HR SPECIALIST-C Work Phone: [facility] 02-15-2025 09:01-0400 Heart rate 69 /min Blanka Hemal HR SPECIALIST-C Work Phone: [facility] 02-15-2025 09:01-0400 Respiratory rate 16 /min Blanka Hemal HR SPECIALIST-C Work Phone: [facility] 02-15-2025 09:01-0400 SaO2% (BldA) [Mass fraction] 96 % Blanka Hemal HR SPECIALIST-C Work Phone: [facility] 02-15-2025 09:01-0400 Systolic blood pressure 141 mm[Hg] Blanka Hemal HR SPECIALIST-C Work Phone: [facility] 01-24-2025 14:40-0400 Body height 154.94 cm Blanka Hemal HR SPECIALIST-C Work Phone: [facility] 01-24-2025 14:40-0400 Body mass index (BMI) [Ratio] 26.4 kg/m2 Blanka Hemal HR SPECIALIST-C Work Phone: [facility] 01-24-2025 14:40-0400 Body weight 63.5 kg Blanka Hemal HR SPECIALIST-C Work Phone: [facility] 01-24-2025 14:40-0400 Diastolic blood pressure 74 mm[Hg] Blanka Hemal HR SPECIALIST-C Work Phone: [facility] 01-24-2025 14:40-0400 Heart rate 80 /min Blanka Hemal HR SPECIALIST-C Work Phone: [facility] 01-24-2025 14:40-0400 Respiratory rate 16 /min Blanka Hemal HR SPECIALIST-C Work Phone: [facility] 01-24-2025 14:40-0400 Systolic blood pressure 123 mm[Hg] Blanka Hemal HR SPECIALIST-C Work Phone: [facility] 12-04-2024 09:11-0400 Body height 154.94 cm Blanka Hemal HR SPECIALIST-C Work Phone: [facility] 12-04-2024 09:11-0400 Body mass index (BMI) [Ratio] 26.3 kg/m2 Blanka Hemal HR SPECIALIST-C Work Phone: [facility] 12-04-2024 09:11-0400 Body weight 63.16 kg Blanka Hemal HR SPECIALIST-C Work Phone: [facility] 12-04-2024 09:11-0400 Diastolic blood pressure 75 mm[Hg] Blanka Hemal HR SPECIALIST-C Work Phone: [facility] 12-04-2024 09:11-0400 Heart rate 71 /min Blanka Hemal HR SPECIALIST-C Work Phone: [facility] 12-04-2024 09:11-0400 Respiratory rate 18 /min Blanka Hemal HR SPECIALIST-C Work Phone: [facility] 12-04-2024 09:11-0400 SaO2% (BldA) [Mass fraction] 97 % Blanka Hemal HR SPECIALIST-C Work Phone: [facility] 12-04-2024 09:11-0400 Systolic blood pressure 156 mm[Hg] Blanka Hemal HR SPECIALIST-C Work Phone: [facility] Encounters Encounter Date Encounter Type Care Provider Facility Start: 02-19-2025 ambulatory Blankaramin Recio Facility:[facility] Start: 02-15-2025 End: 02-15-2025 Patient encounter procedure Maryuri WELLINGTON -[facility] Work Phone: Start: 02-15-2025 End: 02-15-2025 ambulatory Blanka Hemal HR SPECIALIST-C Work Phone: [facility] Work Phone: Start: 01-24-2025 End: 01-24-[address] Ish Reyes MD -[facility] Work Phone: Start: 01-24-2025 End: 01-24-2025 ambulatory Blanka Hemal HR SPECIALIST-C Work Phone: [facility] Work Phone: Start: 01-24-2025 End: 01-24-2025 ambulatory [facility] Facility:[facility] Start: 01-10-2025 ambulatory [facility] Start: 12-27-2024 End: 12-27-2024 Patient encounter procedure Kayla FRITZ -Laboratory Work Phone: Start: 12-27-2024 End: 12-27-2024 ambulatory [facility] Facility:[facility] Start: 12-04-2024 End: 12-04-2024 ambulatory [facility] HR SPECIALIST-C Work Phone: [facility] Work Phone: Start: 12-04-2024 End: 12-04-2024 Patient encounter procedure Kayla FRITZ -Laboratory Work Phone: Start: 12-04-2024 End: 12-04-2024 Patient encounter procedure Kayla FRITZ -[facility] Work Phone: Start: 12-04-2024 End: 12-04-2024 ambulatory [facility] Facility:[facility] Start: 12-04-2024 End: 12-04-2024 ambulatory [facility] Facility:[facility] Start: 11-24-2024 End: 11-24-2024 ambulatory [facility] HR SPECIALIST-C Work Phone: [facility] Work Phone: Start: 11-24-2024 End: 11-24-2024 Patient encounter procedure Blanka Recio HR SPECIALIST-C -Cat Scan, [facility] Work Phone: Start: 11-24-2024 End: 11-24-2024 ambulatory Blankaramin Recio Facility:[facility] Start: 11-01-2024 ambulatory Blanka Hemal Facility:[facility] Start: 10-30-2024 End: 10-30-2024 ambulatory Blankaramin Recio HR SPECIALIST-C Work Phone: [facility] Work Phone: Start: 10-30-2024 End: 10-30-2024 Patient encounter procedure Blanka Hemal HR SPECIALIST-C -[facility] Work Phone: Start: 10-30-2024 End: 10-30-2024 ambulatory Blanka Hemal Facility:[facility] Start: 10-25-2024 End: 10-25-2024 ambulatory Blankaramin Recio HR SPECIALIST-C Work Phone: [facility] Work Phone: Start: 10-25-2024 End: 10-25-2024 Patient encounter procedure Blanka Hemal HR SPECIALIST-C -Laboratory, Specimen Work Phone: Start: 10-24-2024 End: 10-24-2024 ambulatory Blanka Recio HR SPECIALIST-C Work Phone: [facility] Work Phone: Start: 10-24-2024 End: 10-24-2024 Patient encounter procedure Blankaramin Recio HR SPECIALIST-C -Laboratory, Specimen Work Phone: Start: 10-24-2024 End: 10-25-2024 ambulatory Blanka Recio HR SPECIALIST-C Work Phone: [facility] Work Phone: Start: 10-24-2024 End: 10-24-2024 Patient encounter procedure Blanka Recio HR SPECIALIST-C -Laboratory, Radha Jimenez [facility] Start: 10-24-2024 End: 10-24-2024 ambulatory Blanka Recio Facility:[facility] Start: 05-31-2024 End: 05-31-20[facility] Start: 05-03-2024 ambulatory [facility] Start: 05-03-2024 End: 05-03-2024 ambulatory [facility] Facility:[facility] Start: 03-15-2024 End: 03-15-2024 ambulatory [facility] Start: 04-27-2023 End: 04-27-2023 ambulatory [facility] Work Phone: Start: 04-27-2023 End: 04-27-2023 Patient encounter procedure [facility]-Laboratory, Radha Jimenez [facility] Start: 03-23-2023 End: 03-23-2023 Patient encounter procedure [facility]-Laboratory, Radha Jimenez [facility] Start: 10-13-2022 End: 10-13-2022 ambulatory NO PCP AA NO PCP [facility] Procedures Date Procedure Procedure Detail Performing Clinician Start: 12-04-2024 Immature reticulocyt e fraction Blankaramin Recio HR SPECIALIST-C Work Phone: Start: 12-04-2024 Hepatitis A virus an tibody, total measurement Blanka Hemal HR SPECIALIST-C Work Phone: Comment on above: Comment: The HAV tot al antibody assay detects both IgG andIgM but does not differentiate between them. A negativeresult suggests susceptibility to infection. A positiveresult could be due to vaccination, previously resolvedinfection or active infection. Testing for HAV IgM shouldbe performed if active HAV infection is suspected. [facility] profiles that will automatically reflex positive HAVtotal antibody results to IgM (e.g., panel #[id number] HAVAntibody w/ Rfx).Performed at: [address] [id number] Director: Marco Lynch PhD, Phone: [phone] Start: 12-04-2024 Hepatitis C antibody measurement Blanka Hemal HR SPECIALIST-C Work Phone: Comment on above: Reactive: Presumptiv e evidence of antibodies to HCV. Follow CDC recommendations for supplemental testing.Non-Reactive: Antibodies to HCV were not detected; does not exclude the possibility of exposure to HCVReactive Results are presumptive evidence of antibodies to HCV. Follow CDC recommendations for supplemental testing.Order confirmation testing: HCV Quant by PCR testing - HCVPCR #[id number] Non Reactive: < 0.8 Equivocal: >/= 0.8 to < 1.0 Reactive: >/= 1.0The CDC requires that a reactive/equivocal HCV antibody result be sent out for confirmation. HCV Quant by PCR testing. Start: 11-24-2024 CT of abdomen with contrast Blanka Recio HR SPECIALIST-C Work Phone: Start: 10-30-2024 Ultrasonography of abdomen Blankaramin Recio HR SPECIALIST-C Work Phone: Start: 10-24-2024 Iadna-dna/rna gi pth gn multiplex probe tq 6-11 Blankaramin Recio HR SPECIALIST-C Work Phone: Start: 10-24-2024 Clostridium difficil e detection Blankaramin Recio HR SPECIALIST-C Work Phone: Start: 10-24-2024 Lactoferrin measurement Blankaramin Recio HR SPECIALIST-C Work Phone: Start: 10-24-2024 Nucleic acid assay Sona Recio HR SPECIALIST-C Work Phone: Start: 10-24-2024 Ova OR parasites identification Blankaramin Recio HR SPECIALIST-C Work Phone: Plan of Treatment Date Care Activity Detail Author US.doppler Lower extremity vein [facility] Payers Date Payer Category Payer Medicare [id number] 2024 Private Health Insurance [id number] 2024 Private Health Insurance [id number] 2024 Self-pay [id number] 1960 Unknown 0 Private Health Insurance [id number] Unknown [id number] Unknown [facility] [id number] Unknown [id number] [id number] Unknown [id number] [id number]2 Unknown [id number] 2.16.840.1.926006.3.579.2.462 Unknown [id number] 2.16.840.1.281503.3.579.2.462 Unknown [id number] 2.16.840.1.957661.3.579.2.462 Unknown [id number] 2.840.1.741856.3.579.2.462 Unknown [id number] 2.16840.1.895084.3.579.2.462 Unknown [id number] 2.16.840.1.761720.3.579.2.462 Unknown [id number] 2.16.840.1.404335.3.579.2.462 Unknown [id number] 2.16840.1.615909.3.579.2.462 Unknown [id number] 2.16.840.1.496374.3.579.2.462 Unknown [id number] 2.16.840.1.394656.3.579.2.462 Unknown [id number] 2.16.840.1.871160.3.579.2.462 Unknown [id number] 2.16.840.1.224043.3.579.2.462 Unknown [id number] 2.16.840.1.083878.3.579.2.462 Unknown [id number] 2.16.840.1.235035.3.579.2.462 Unknown [id number] 2.16.840.1.795037.3.579.2.462 Unknown [id number] [id number]2 Social History Date Type Detail Facility Start: 07-05-2019 Tobacco smoking status NHIS Unknown if ever smoked [facility] Start: 11-12-2016 Spouse/ Signif icant Other [facility] Start: 1960 Sex Assigned At Female [facility] Start: 05-31-2024 Tobacco smoking status NHIS Ex-smoker (finding) [facility] Start: 11-06-2024 End: 12-07-2024 Sex Female (finding) [facility] Start: 12-04-2024 Tobacco smoking status NHIS Smokes tobacco daily (finding) [facility] Start: 02-15-2025 Tobacco smoking status SCIS Current Light tobacco smoker [facility] Progress note 01-24-2025 Note Date & Type Note Facility 01-24-2025 Progress note [facility] Progress note 01-24-2025 Note Date & Type Note Facility 01-24-2025 Progress note Note Date/Time January 24, 2025 2:56pm [facility] [address] [place] [address] OFFICE VISIT Date of Service: 01/24/25 MR#: [id number] Acct: [id number] Name: ROSIE FRANCO Rep #: [id number] : 1960 Provider: Dr. Pablo Reyes MD Age/Sex: 64/F Location: [facility] Status: Signed HPI HPI History of Present Illness Details: This lady is here for follow-up visit today. Denies any chest pains or shortness of breath. No palpitations. No orthopnea or PND. For the past 2 to 3 weeks, patient has been complaining of some swelling of her left leg and foot. Per her, she has been told by her primary care physician to see an orthopedic doctor for it. Intake Vital Signs 12/04/24 09:11 01/24/25 14:40 Height 5 ft 1 in 5 ft 1 in Weight: 139 lb 4 oz 140 lb BMI 26.3 26.4 BP 156/75 H 123/74 H Blood Pressure Location Lt brachial Position Sitting Respiration 18 16 Pulse 71 80 Pulse Source NIBP Pulse Oximetry (%) 97 Oxygen Delivery Method room air Intake Visit Reasons: 3 M FU Fabrication Department Supervisor Required: No Accompanied by: Self Is patient in pain?: No Allergies Sulfa (Sulfonamide Antibiotics) Allergy (Verified 01/24/25 14:40) Rash Medications ?Medication ?Instructions ?Recorded ?Confirmed ?Type citalopram 10 mg tablet 10 mg PO DAILY 03/01/2412/29 History carvedilol 6.25 mg tablet 6.25 mg PO BID #60 tabs 04/3001/24/25 Rx alprazolam 0.5 mg tablet 1 mg PO BID anxiety 12/04/24 01/24/25 History ondansetron HCl 4 mg tablet 4 mg PO .COMPLEX #5 tabs 0 12/04/24 01/24/25 Rx pantoprazole 40 mg tablet,delayed 40 mg PO QDAY #90 ta bs 12/04/24 01/24/25 Rx release peg 3350-electrolytes 236 240 ml PO Q10M #4,000 mL 03/2301/24/25 Rx gram-22.74 gram-6.74 gram-5.86 gram solution (Golytely) Ejection fraction %: 60 Have you fallen in the past year?: Yes (multiple; no major injuries) PFSH Medical History Endophthalmitis Hypertension Depression Essential hypertension Hx of fracture of clavicle Hypotension Fatigue Nicotine dependence Open wound of finger with complication Infected puncture wound of finger Swelling Hemorrhoids SOB (shortness of breath) Surgical History Hx of section Hx of hysterectomy Family History Father Heart disease Diabetes Hypertension Mother Thyroid disorder Hypertension Grandfather Cancer Kidney Black lung Grandmother Diabetes Alzheimer's dementia Social History Smoking Status: Current every day smoker quit status: considering quitting alcohol intake: current alcohol intake frequency: a few times a week Alcohol type: wine substance use type: does not use caffeine: Yes Type: coffee Number of servings: 1 ROS Const Const: Positive for fatigue, frequent falls and weight gain; Negative for weakness or headache(s) ENT ENT: Positive for balance problems; Negative for headache(s), dizziness or Nosebleed/epistaxis Cardio Chest Pain: No Palpitations: No Edema: Bilateral (BLE; LLE severe vs. right) Muscle aches with walking: None Resp Respiratory: Negative for SOB with activity, SOB at rest or SOB orthopneaundefinedSOB lying down GI GI: Negative nausea, vomiting or heartburn Musc Musc: Positive for balance problems; Negative for muscle aches/ myalgia, muscle weakness or joint pain Neuro Neuro: Positive for frequent falls; Negative for dizziness, lightheadedness, near syncope, syncope, headache(s) or weakness Endo Endo: Positive for fatigue Cardiology Exam Const Appearance: comfortable and no acute distress Nutritional Appearance: well nourished Neck Neck: no JVD Carotids: Negative bruit Chest Auscultation: Bilateral: Clear to Auscultation Cardio Rate: regular rate Rhythm: regular rhythm Heart sounds: S1 normal and S2 normal Neuro General: patient alert, patient awake and patient oriented x3 Extremities Lower Extremity Edema: None: Right and +1: Left Left calf mildly tender. No erythema. Supplemental Info Supplemental Information Echocardiogram 05/03/2024: Interpretation Summary The left ventricular ejection fraction is 60 %. Mild (1+) mitral valve insufficiency. Stress Test 05/03/2024: Impression: 1. Technically adequate exercise stress test at 82% of maximal predicted heart rate. Functional capacity consider below average. 2. Peak exercise ECG with no ischemic changes. Appropriate blood pressure response to exercise. 3. No significant cardiac dysrhythmias noted. Isolated PVC with exercise. 4. Rest and stress SPECT Cardiolite nuclear imaging demonstrate relative uniform tracer uptake and myocardial perfusion appearing within normal limits. 5. The gated Cardiolite study reports an LVEF of 69%. Assessment and Plan Assessment and Plan (1) Essential hypertension: Status: Chronic Plan: Continue carvedilol. (2) Mitral valve regurgitation: Status: Chronic Plan: Mild mitral valve regurgitation noted on echocardiogram. Periodic clinical and echo surveillance. (3) Nicotine dependence: Status: Chronic Plan: Patient has unfortunately resumed smoking. Counseled to quit. (4) Anxiety: Status: Chronic Plan: As per PCP. On citalopram and as needed alprazolam (5) Left leg swelling: Status: Acute Plan: Check Doppler ultrasound left lower extremity to exclude DVT. Plan Details Follow Up: 12 Months Coding Level of Care Code Off vis,est,level 4 Diagnoses Essential hypertension I10 Mitral valve regurgitation I34.0 Nicotine dependence F17.200 Anxiety F41.9 Left leg swelling M79.89 Coding Level of Care Code Off vis,est,level 4 Diagnoses Essential hypertension I10 Mitral valve regurgitation I34.0 Nicotine dependence F17.200 Anxiety F41.9 Left leg swelling M79.89 Clinical Quality Measures Falls Risk Screening/Assistive Devices Have you fallen in the past year?: Yes (multiple; no major injuries) Cardiac Ejection fraction %: 60 01/24/25 1456 <Electronically signed by Ish Reyes MD> Date _ Ish Reyes MD Cosigner Signature: Date (if applicable) CC: HR SPECIALIST-C Blanka Recio ~ [facility] Work Phone: Evaluation note 12-04-2024 Note Date & Type Note Facility 12-04-2024 Evaluation note Diagnosis Onset Date Resolution Elevated liver transaminase level acute December 04 8:26am Fatty liver acute December 04 8:26am Hyponatremia acute December 04, 2 025 8:26am Macrocytic anemia acute December 042024 8:26am RUQ pain acute December 04 8:26am [facility] Work Phone: Evaluation note 12-04-2024 Note Date & Type Note Facility 12-04-2024 Evaluation note Diagnosis Onset Date Resolution Elevated liver transaminase level acute December 04 8:26am Fatty liver acute December 04 8:26am Hyponatremia acute December 04, 2 025 8:26am Macrocytic anemia acute December 042024 8:26am RUQ pain acute December 04 8:26am Left leg swelling acute December 2:27pm Anxiety chronic January 24, 2025 2:27pm Essential hypertension chronic Ma y 2024 2:27pm Mitral valve regurgitation chronic January 24, 2025 2:27pm Nicotine dependence chronic December 292024 2:27pm [facility] Work Phone: Radiology Diagnostic study note 11-25-2024 Note Date & Type Note Facility 11-25-2024 Radiology Diagnostic study note [facility] [address] [place] [address] Abdomen W/WO IV Contrast MR#: [id number] Acct: [id number] Name: ROSIE FRANCO Rep #: [id number] : 1960 F 64 From: Cony Belle MD PCP: CATRINA Mcmahan Status: REG CLI Study:Abdomen W/WO IV Contrast Date of Exam: 11/24/24 Exam# [id number] Ordering Dr: Ra jennifer Recio PROCEDURE: ABDOMEN W/WO IV CONTRAST 11/24/2024 REASON FOR EXAM: LIVER DISEASE TECHNIQUE: Abdomen CT without and with intravenous contrast. Postcontrast images were obtained in the arterial and portal venous phase. Coronal and Sagittal reconstruction series were provided. One or more dose reduction techniques were used (e.g., Automated exposure control, adjustment of the mA and/or kV according to patient size, use of iterative reconstruction technique. COMPARISON: 10/30/2024 FINDINGS: Lower chest: Unremarkable. Liver: There is a focal area of steatosis in the left hepatic lobe, corresponding to the abnormality seen on the previous ultrasound. There is a punctate cyst in the right hepatic lobe measuring 5 mm. Biliary/gallbladder: Unremarkable. Pancreas: Unremarkable. Spleen: Unremarkable. Adrenal glands: Unremarkable. Kidneys: There is an irregular hypodense lesion at the upper pole of the left kidney measuring 9.4 x 9.4 x 17.4 mm. A tiny cyst is present in the upper pole of the right kidney measuring 7 mm. Gastrointestinal/peritoneum: No acute abnormality.Mild colonic diverticulosis ispresent.The appendix is unremarkable.No free air or free fluid. Vascular: Unremarkable. Lymph nodes: No enlarged lymph nodes by CT size criteria. Bones: Unremarkable. Soft tissues: Unremarkable. CT/Abdomen W/WO IV Contrast IMPRESSION: 1. Focal steatosis in the left hepatic lobe, corresponds to the abnormality seenon the previous ultrasound. 2. Irregular cystic lesion in the upper pole of the left kidney. A follow-up multi phase CT or MRI is recommended in 6 months. Reading Location: [facility] CC: HR SPECIALISTDivya Recio ~ Garment Worker: Signed [facility] Radiology Diagnostic study note 10-30-2024 Note Date & Type Note Facility 10-30-2024 Radiology Diagnostic study note [facility] [address], [place] [address] Abdomen Limited MR#: [id number] Acct: [id number] Name: ROSIE FRANCO Rep #: [id number] : 1960 F 64 From: Meghann Heredia MD PCP: CATRINA Mcmahan Status: REG CLI Study:Abdomen Limited Date of Exam: 11/21 Exam# [id number] Ordering Dr: Ra jennifer Recio EXAM: US Abdomen Limited, Right Upper Quadrant CLINICAL INDICATION: TECHNIQUE: Real-time ultrasound of the right upper quadrant with image documentation. COMPARISON: No relevant prior studies available. FINDINGS: LIVER: Ill-defined echogenic lesion of the left liver measuring 2.9 x 4.4 x 2.0cm could be a cavernous hemangioma. Further evaluation with MRI or CT with contrast using liver mass protocol is recommended. Liver measures up to 13.8 cm. Fatty infiltration of the liver. No intrahepatic bile duct dilation. GALLBLADDER: Unremarkable. No gallstones. COMMON BILE DUCT: Unremarkable as visualized. No stones. No dilation. Commonbile duct measures 0.42 cm in diameter. PANCREAS: Unremarkable as visualized. RIGHT KIDNEY: Right renal cyst measuring up to 0.9 cm. No stones. No hydronephrosis. The right kidney measures 9.9 x 5.3 x 4.7 cm. US/Abdomen Limited IMPRESSION: 1. Ill-defined echogenic lesion of the left liver measuring 2.9 x 4.4 x 2.0 cm could be a cavernous hemangioma. Further evaluation with MRI or CT with contrast using liver mass protocol is recommended. 2. Fatty infiltration of the liver. Reading Location: [facility] CC: CATRINA Rceio ~ Garment Worker: Signed [facility] Evaluation note Note Date & Type Note Facility Evaluation note No assessment information availa ble [facility] Work Phone: Reason for referral (narrative) Note Date & Type Note Facility Reason for referral (narrative) No reason for referral information available [facility] Work Phone: Summary Purpose Family History No Family History Records Found Relationship Condition Age at Onset Recorded Date/T [place] father Cardiac disease Unknown Diabetes mellitus Unknown Hypertension Unknown mother Disorder of thyroid Unknown Relationship Condition Age at Onset Recorded Date/T [place] father Cardiac disease Unknown Diabetes mellitus Unknown Hypertension Unknown mother Disorder of thyroid Unknown grandfather Malignant neoplasm Unknown Lea workers' pneumoconiosis Unknown grandmother Diabetes mellitus Unknown Alzheimer's dementia Unknown Advance Directives No Advanced Directives Records Found Advance Directive Response Recorded Date/ Time Living Will Yes July 05 9:14am Power of Service Desk Specialist Yes July 05, 2019 9:14am Chief Complaint and Reason for Visit Chief Complaint Admit Date ASSESS FOR ABNORMALITIES October 30, 2024 8:34am Chief Complaint Admit Date ASSESS FOR ABNORMALITIES October 30, 2024 8:34am ASSESS LIVER LESION, HEMAGIOMA October 1:02pm Chief Complaint Admit Date ASSESS FOR ABNORMALITIES October 30, 2024 8:34am ASSESS LIVER LESION, HEMAGIOMA October 1:02pm LIVER ISSUES December 04, 2024 8:26 am Reason for Visit Admit Date Elevated liver transaminase level December 04, 2024 8:26am Fatty liver December 04, 2024 8:26 am Hyponatremia December 04, 2024 8:26 am Macrocytic anemia December 04, 2024 8:26 am RUQ pain December 04, 2024 8:26 am Chief Complaint Admit Date ASSESS FOR ABNORMALITIES October 30, 2024 8:34am ASSESS LIVER LESION, HEMAGIOMA March 28t h, 2025 1:02pm LIVER ISSUES December 04, 2024 8:26 am 3 M FU January 24, 2025 2:27p m Reason for Visit Admit Date Elevated liver transaminase level December 04, 2024 8:26am Fatty liver December 04, 2024 8:26 am Hyponatremia December 04, 2024 8:26 am Macrocytic anemia December 04, 2024 8:26 am RUQ pain December 04, 2024 8:26 am Left leg swelling January 24, 2025 2:27p m Anxiety January 24, 2025 2:27p m Essential hypertension January 24, 2025 2: 27pm Mitral valve regurgitation January 24 2:27pm Nicotine dependence January 24, 2025 2:27p m Chief Complaint Admit Date ASSESS FOR ABNORMALITIES October 30, 2024 8:34am ASSESS LIVER LESION, HEMAGIOMA October 1:02pm LIVER ISSUES December 04, 2024 8:26 am 3 M FU January 24, 2025 2:27p m Other specified soft tissue disorders Ma y 2024 3:20pm Chief Complaint Admit Date ASSESS FOR ABNORMALITIES October 30, 2024 8:34am ASSESS LIVER LESION, HEMAGIOMA October 1:02pm LIVER ISSUES December 04, 2024 8:26 am 3 M FU January 24, 2025 2:27p m Other specified soft tissue disorders Ma y 2024 3:20pm SWELLING January 24, 2025 3:26p m Swelling in BLE L>R February 15, 2025 8:35 am Additional Source Comments INFORMATION SOURCE (unrecogn ized section and content) DATE CREATED AUTHOR 02/09/2020 [facility] DATE CREATED AUTHOR AUTHOR'S ORGANIZ ATION 06/12/2021 [facility] DATE CREATED AUTHOR AUTHOR'S ORGANIZ ATION 10/13/2022 [facility] DATE CREATED AUTHOR AUTHOR'S ORGANIZ ATION 02/20/2025 [facility] Care Teams (unrecognized sec tion and content) Team Status: Active Member Role Status Dates Mauricio JARAMILLO Family Provider Active CATRINA Mcmahan Primary Care Provider Active Team Status: Inactive Member Role Status Dates CATRINA Mcmahan Primary Care Provide r, Attending Provider, Referring Provider Active Team Status: Active Member Role Status Dates Blanka Hemal , HR SPECIALIST-C Primary Care Provider Active Team Status: Inactive Member Role Status Dates Blanka Recio HR SPECIALIST-C Primary Care Provider Active Start: October 24, 2024 End: October 24, 2024 Blanka Recio HR SPECIALIST-C Attending Provider Active St art: October 24, 2024 End: October 24, 2024 Team Status: Active Member Role Status Dates Blanka Recio HR SPECIALIST-C Primary Care Provider Active Start: October 24, 2024 Blanka Recio HR SPECIALIST-C Attending Provider Active St art: October 24, 2024 Team Status: Active Member Role Status Dates Blanka Recio HR SPECIALIST-C Primary Care Provider Active Start: October 25, 2024 Blanka Recio HR SPECIALIST-C Attending Provider Active St art: October 25, 2024 Team Status: Active Member Role Status Dates Blanka Recio HR SPECIALIST-C Primary Care Provider Active Start: October 30, 2024 Blanka Recio HR SPECIALIST-C Attending Provider Active St art: October 30, 2024 Blanka Recio HR SPECIALIST-C Referring Provider Active St art: October 30, 2024 Team Status: Inactive Member Role Status Dates Blanka Recio HR SPECIALIST-C Primary Care Provider Active Start: October 25, 2024 End: October 25, 2024 Blanka Recio HR SPECIALIST-C Attending Provider Active St art: October 25, 2024 End: October 25, 2024 Team Status: Inactive Member Role Status Dates Blanka Recio HR SPECIALIST-C Primary Care Provider Active Start: October 30, 2024 End: October 30, 2024 Blanka Recio HR SPECIALIST-C Attending Provider Active St art: October 30, 2024 End: October 30, 2024 Blanka Recio HR SPECIALIST-C Referring Provider Active St art: October 30, 2024 End: October 30, 2024 Team Status: Inactive Member Role Status Dates Blanka Recio HR SPECIALIST-C Primary Care Provider Active Start: November 24, 2024 End: November 24, 2024 Blanka Recio HR SPECIALIST-C Attending Provider Active St art: November 24, 2024 End: November 24, 2024 Blanka Recio , HR SPECIALIST-C Referring Provider Active St art: November 24, 2024 End: November 24, 2024 Team Status: Inactive Member Role Status Dates Blanka Recio HR SPECIALIST-C Primary Care Provider Active Start: December 04, 2024 End: December 04, 2024 Blanka Recio HR SPECIALIST-C Referring Provider Active St art: December 04, 2024 End: December 04, 2024 Kayla Monte HR SPECIALIST-C Attending Provider Active Start: December 04, 2024 End: December 04, 2024 Team Status: Inactive Member Role Status Dates Blanka Recio HR SPECIALIST-C Primary Care Provider Active Start: December 04, 2024 End: December 04, 2024 Kayla Monte HR SPECIALIST-C Attending Provider Active Start: December 04, 2024 End: December 04, 2024 Kayla Monte HR SPECIALIST-C Referring Provider Active Start: December 04, 2024 End: December 04, 2024 Team Status: Inactive Member Role Status Dates Blanka Recio HR SPECIALIST-C Primary Care Provider Active Start: December 27, 2024 End: December 27, 2024 Kayla Monte HR SPECIALIST-C Attending Provider Active Start: December 27, 2024 End: December 27, 2024 Kayla Monte HR SPECIALIST-C Referring Provider Active Start: December 27, 2024 End: December 27, 2024 Team Status: Inactive Member Role Status Dates Blanka Recio HR SPECIALIST-C Primary Care Provider Active Start: January 24, 2025 End: January 24, 2025 Blanka Recio HR SPECIALIST-C Referring Provider Active St art: January 24, 2025 End: January 24, 2025 Dr. Ish Reyes MD Attending Provider Active Start: January 24, 2025 End: January 24, 2025 Team Status: Inactive Member Role Status Dates Blanka Recio HR SPECIALIST-C Primary Care Provider Active Start: January 24, 2025 End: January 24, 2025 Dr. Ish Reyes MD Attending Provider Active Start: January 24, 2025 End: January 24, 2025 Dr. Ish Reyes MD Referring Provider Active Start: January 24, 2025 End: January 24, 2025 Team Status: Active Member Role Status Dates Dr. Ata Miller MD Attending Provider Active Start: January 24, 2025 Dr. Ish Reyes MD Referring Provider Active Start: January 24, 2025 Team Status: Inactive Member Role Status Dates AMISH Easton Attending Provider Active Star t: February 15, 2025 End: February 15, 2025 Dr. Ish Reyes MD Referring Provider Active Start: February 15, 2025 End: February 15, 2025 CATRINA Mcmahan Primary Care Provider Active Start: February 15, 2025 End: February 15, 2025 Goals (unrecognized section and content) Goals may be documented in a n alternate sectionGoals may be documented in an alternate sectionGoals may be documented in an alternate sectionGoals may be documented in an alternate sectionGoals may be documented in an alternate sectionGoals may be documented in an alternate sectionGoals may be documented in an alternate sectionGoals may be documented in an alternate sectionGoals may be documented in an alternate sectionGoals may be documented in an alternate section FOR RECORDS PERTAINING TO PATIENTS WHO ARE OR HAVE BEEN ENROLLED IN A CHEMICAL DEPENDENCY/SUBSTANCEABUSE PROGRAM, SOME INFORMATION MAY BE OMITTED. This clinical summary was aggregated from multiple sources. Caution should be exercised in using it in the provision of clinical care. This summary normalizes information from multiple sources, and as a consequence, information in this document may materially change the coding, format and clinical context of patient data. In addition, data may be omitted in some cases. CLINICAL DECISIONS SHOULD BE BASED ON THE PRIMARY CLINICAL RECORDS. [facility]. provides no warranty or guarantee of the accuracy or completeness of information in this document.
[2025-04-24 05:57] VITALS: BP 105/71; PULSE 70; RESP 18; TEMP 36.2; O2SAT 95
[2025-04-24] MEDS: 0.9% Saline Lock 10 ML Syringe IV (06:04)
[2025-04-24 07:55] LABS: Hematocrit 25.6 % (37-47); Hemoglobin 9.5 g/dL (12.0-15.0); Immature Granulocytes Count 0.020 X10^3/uL (0.0-0.0); Mean Corp Hgb Conc 37.1 g/dL (32-36); Mean Corpuscular Volume 113.8 fL (81-99); Mean Platelet Vol. 9.2 fl (6.2-12.0); NRBC Flagged by Analyzer 0 % (0-5); Platelet Count 157 K/mm3 (150-450); RBC Distribution Width CV 13.6 % (11.6-14.6); RBC Distribution Width SD 55.6 fl (35.1-43.9); Red Blood Count 2.25 M/mm3 (4.2-5.4); White Blood Count 5.4 K/mm3 (4.4-11.0)
[2025-04-24 08:24] LABS: Anion Gap 11 (5-15); BUN 11 mg/dL (4-19); BUN/Creat Ratio 7.9 RATIO (10-20); Calcium,Total 9.2 mg/dL (7.6-11.0); Carbon Dioxide 21.3 mmol/L (21.0-32.0); Chloride 103 mmol/L (98-108); Estimated Creatinine Clearance 33.79 ml/min (50-250); Glucose 115 mg/dL (70-99); Potassium 3.8 mmol/L (3.3-5.1)
[2025-04-24 08:38] VITALS: BP 116/62; PULSE 67; RESP 16; TEMP 36.2; O2SAT 97
--- NOTE | 2025-04-24 11:38 | PN.HOSP_ITS ---
Subjective Subjective No dizziness or lightheadedness so far today, orthostatic vital signs were unremarkable Objective Data Objective Data Vital Signs: Vital Signs Temp Pulse Resp BP Pulse Ox O2 Del Method 97.2 F L 67 16 116/62 97 Room Air 04/24/25 08:38 04/24/25 08:38 04/24/25 08:38 04/24/25 08:38 04/24/25 08:38 04/24/25 08:38 Oxygen Delivery Method Room Air Weight: 139 lb 5.314 oz Body Mass Index (BMI) 25.4 Intake & Output: Intake and Output for Last 24 Hours 04/23/25 04/24/25 04/25/25 03:59 03:59 03:59 Intake Total 120 / 120 Balance 120 / 120 Lab / Micro Data 04/24/25 07:44 04/24/25 07:44 Labs: Laboratory Results - last 24 hr 04/23/25 18:24: WBC 6.2, RBC 2.25 L, Hgb 9.3 L, Hct 25.4 L, MCV 112.9 H, MCH 41.3 H, MCHC 36.6 H, RDW Std Deviation 57.0 H, RDW Coeff of Dennis 13.9, Plt Count 173, MPV 8.8, Immature Gran % (Auto) 0.300, Neut % (Auto) 44.9 L, Lymph % (Auto) 47.4 H, Cascade % (Auto) 4.3, Eos % (Auto) 2.6, Baso % (Auto) 0.5, Absolute Neuts (auto) 2.8, Absolute Lymphs (auto) 2.95, Nucleated RBC % 0, Sodium 135, Potassium 4.3, Chloride 100, Carbon Dioxide 20.5 L, Anion Gap 14, BUN 9, C reatinine 1.33 H, Estim Creat Clear Calc 36.92 L, Est GFR (MDRD) Non-Af 44 L, B UN/Creatinine Ratio 6.9 L, Glucose 96, Calcium 9.6 04/24/25 07:44: WBC 5.4, RBC 2.25 L, Hgb 9.5 L, Hct 25.6 L, MCV 113.8 H, MCH 42.2 H, MCHC 37.1 H, RDW Std Deviation 55.6 H, RDW Coeff of Dennis 13.6, Plt Count 157, MPV 9.2, Immature Gran % (Auto) 0.400, Neut % (Auto) 57.5, Lymph % (Auto) 34.6, Cascade % (Auto) 4.3, Eos % (Auto) 2.8, Baso % (Auto) 0.4, Absolute Neuts (auto) 3.1, Absolute Lymphs (auto) 1.87, Nucleated RBC % 0, Sodium 134, Potassium 3.8, Chloride 103, Carbon Dioxide 21.3, Anion Gap 11, BUN 11, C reatinine 1.45 H, Estim Creat Clear Calc 33.79 L, Est GFR (MDRD) Non-Af 40 L, B UN/Creatinine Ratio 7.9 L, Glucose 115 H, Calcium 9.2 Radiography Diagnostic Testing: Radiology Impression Brain CT 04/23/25 18:30 IMPRESSION: No acute intracranial process. Reading Location: [facility] Cervical Spine CT 04/23/25 18:30 IMPRESSION: No acute cervical spine fracture or subluxation. Mild spondylotic changes. Slight reversal of the cervical lordosis may be positional/degenerative or related to muscle spasm. Reading Location: [facility] Chest X-Ray 04/23/25 18:50 IMPRESSION: NO ACUTE FINDINGS. Reading Location: [facility] Elbow X-Ray 04/23/25 18:50 IMPRESSION: No acute osseous abnormalities. Reading Location: [facility] Shoulder X-Ray 04/23/25 18:50 IMPRESSION: Left humeral neck fracture. Reading Location: [facility] Physical Exam Narrative General: Alert, Oriented x3, Cooperative, No apparent distress HEENT: Atraumatic, PERRLA, EOMI, Normocephalic Oral: Moist Mucosa Neck: Supple, No JVD Lungs: Clear to auscultation, Normal air movement, No rhonchi, No wheeze, No rales Cardiovascular: Regular rate, Regular Rhythm, Normal S1, Normal S2, No murmurs Abdomen: Soft, Non Tender, Non-Distended, No Hepato-splenomegaly Extremities: No edema, Capillary Refill Less than 3 Seconds Skin: No rashes, No breakdown Musculoskeletal: Left arm in sling from left humeral fracture Neurological: No focal neurological deficits, moves all extremities except her left arm which is in a sling Psych/Mental Status: Normal Affect, Appropriate Assessment & Plan Assessment/Plan (1) Essential hypertension: (2) Near syncope: (3) Anemia: PLAN: Plan 1. Frequent falls with syncope and near syncope/essential HTN ? She says that she is having drop attacks and she does not have any prodromal symptoms ? Continue telemetry monitoring, if nothing is evident then when she is discharged we will plan for an event monitor ? Will hold her Coreg as she demonstrated she has had some low blood pressures in the mornings ? Echo is pending today ? She did have a fall 2 weeks ago that caused a left humeral fracture, she is nonoperative and will follow-up with orthopedic surgery as an outpatient, will continue with sling 2. GERD ? Stable ? Continue with PPI 3. Anxiety/depression ? Stable ? Continue with her home medications DVT: SCDs Charges/Coding Visit Charges Inpatient E&M: 94171 Subs Hosp L2
[2025-04-24] MEDS: 0.9% Normal Saline (1000mL) 1,000 ML 75 ML IV (12:13)
[2025-04-24 13:42] LABS: Vitamin B12 486 pg/mL (180-914)
--- NOTE | 2025-04-24 13:51 | CASEMGMT ---
Social Work- SW met with pt to verify directives. SW introduced self and role. Pt reports spouse Dennis as primary agent. Son Adeel reported as alternate. Documents requested for scan into chart. SHARA Fontanez
[2025-04-24 14:00] VITALS: BP 125/70; PULSE 79; RESP 16; TEMP 36.2; O2SAT 96
--- NOTE | 2025-04-24 14:23 | CASEMGMT ---
SW Assessment: Face to Face with pt for initial transition planning/care coordination assessment. SW introduced self and role at [facility], pt voices understanding and consents to assessment. Pt is A&O x4 and answers all questions appropriately at this time. Care providers, pharmacy, and demographics verified/updated. PCP: Hemal Specialists: Eric- sleeve turner, Lavell- [place] CHRIS- Vascular Preferred Pharmacy: [facility] Insurance: [facility] Prescription Benefit: yes LNOK: Dennis, spouse. Adeel, son. Living Arrangements: Pt lives in a tri-story home. Pt reports 3 steps with a handrail to enter. Pt reports 3 stairs to main floor, 13 steps to basement (pt does not go to basement), 15 stairs to upper level where bathroom or bedroom are located. Pt spouse does laundry, as laundry is in the basement. Pt reports she cleans, cooks, and is independent with self care. Pt reports that she does sink baths, as she has a step-in tub and is fearful of stepping in and also fearful of using a tub bench or shower chair. Transportation: Pt reports that spouse drives pt to appointments. DME:rail/grab bars. Pt reports that she does not want tub bench. Pt is interested in medical alert. SW provided printable on medical alert. HHC/SNF: none Pt states no concerns with going home at time of dc. Pt states no further concerns/needs. SW to follow. Advised pt to ask SW if any further questions/concerns/needs arise, voices understanding. SHARA Fontanez
[2025-04-24 20:54] VITALS: BP 114/67; PULSE 80; RESP 18; TEMP 36.6; O2SAT 97
--- NOTE | 2025-04-24 22:30 | NURSING ---
took over care from Bandar HYLTON, went to room to introduce self, pt on phone with and was angry telling him that she was coming home and going to call an uber to come and pick her up that she had a bad day and was in pain with her shoulder, she wanted a heating pad, pain meds and xanax. was on speaker, this RN introduced self to pt and , explained pt had a heating pad on and that I was a new nurse taking over care of pt and was just meeting her. checked MAR pt had taken her xanax and offered to get pt pain meds and an ice pack for her shoulder if heating pad wasn't working. Pt also wanted IVF stopped and IV taken out. IVF stopped encouraged PO fluids. Pain meds given, ice pack placed, encouraged to keep IV site in case needs medication that route and pt agreed. Pt later apologized and has decided to stay at this time. storehouse clerk notified
[2025-04-24 22:32] VITALS: PULSE 71
[2025-04-25 03:41] VITALS: PULSE 73
[2025-04-25 05:27] VITALS: BP 133/76; PULSE 81; RESP 16; TEMP 36.1; O2SAT 96
[2025-04-25 06:58] LABS: Hematocrit 25.4 % (37-47); Hemoglobin 9.2 g/dL (12.0-15.0); Immature Granulocytes Count 0.030 X10^3/uL (0.0-0.0); Mean Corp Hgb Conc 36.2 g/dL (32-36); Mean Corpuscular Volume 113.4 fL (81-99); Mean Platelet Vol. 8.9 fl (6.2-12.0); NRBC Flagged by Analyzer 0 % (0-5); Platelet Count 154 K/mm3 (150-450); RBC Distribution Width CV 13.6 % (11.6-14.6); RBC Distribution Width SD 56.0 fl (35.1-43.9); Red Blood Count 2.24 M/mm3 (4.2-5.4); White Blood Count 5.2 K/mm3 (4.4-11.0)
[2025-04-25 07:52] LABS: Anion Gap 10 (5-15); BUN 11 mg/dL (4-19); BUN/Creat Ratio 7.5 RATIO (10-20); Calcium,Total 8.7 mg/dL (7.6-11.0); Carbon Dioxide 21.3 mmol/L (21.0-32.0); Chloride 102 mmol/L (98-108); Estimated Creatinine Clearance 34.51 ml/min (50-250); Glucose 122 mg/dL (70-99); Potassium 3.5 mmol/L (3.3-5.1)
[2025-04-25 11:00] VITALS: BP 111/60; PULSE 69; RESP 16; TEMP 36.4; O2SAT 96
[2025-04-25 12:35] LABS: Ferritin 954 ng/mL (22-378); Iron 117 ug/dL (50-170); Iron Binding Capacity,Unsat 119 ug/dL (228-428)
[2025-04-25 12:37] LABS: Iron Binding Capacity,Total 236 ug/dL (250-450)
--- NOTE | 2025-04-25 14:09 | DCINST_ITS ---
Discharge Instructions DC O2, CPAP, BIPAP needs Home O2 Discharge instructions: No Dressing / Incision Discharge Activity: Return to Normal Activity Dressing / Incision Call your doctor if you observe: Fever of 101 or Higher, Shortness of breath, Dizziness, Fainting spells, Swelling in the ankles, Chest pain and Increased palpitations (irregular heartbeat) Follow Up Care Test Results: Test results from this visit will be discussed in further detail at your follow- up appointment, if applicable. Discharge Plan Admission Admit Date/Time: 04/23/25 20:30 Attending Provider: Adeel Villatoro Primary Care Provider: Blanka Recio Consulting Providers: Haile Cesar Additional Instructions / Restrictions: You are anemic so I do recommend outpatient follow-up with your PCP to recheck blood work and also to follow-up with gastroenterology for evaluation. I did attempt to get a fecal occult blood sample on you however you did not have a bowel movement so I recommend GI follow-up for evaluation. Please return to the hospital if you do notice any blood in your stools. I did place you on vitamin B12 as this was low normal and based on your blood work it could be a cause of your anemia as well. Your iron levels were okay. Discharge Orders/Prescriptions Prescriptions: New cyanocobalamin (vitamin B-12) 500 mcg Tablet 1,000 mcg PO BREAKFAST 30 Days Qty: 60 0RF carvedilol [Coreg] 3.125 mg tablet 3.125 mg PO BID 30 Days Qty: 60 0RF Rx Instructions: must administer with a meal/food Continued citalopram 10 mg tablet 10 mg PO DAILY alprazolam 0.5 mg tablet 1 mg PO BID ondansetron HCl 4 mg tablet 4 mg PO .COMPLEX Qty: 5 0RF Rx Instructions: 4 mg orally; take two tablets PO two hours prior to start of bowel prep and one every 4 hours as needed for N/V pantoprazole 40 mg tablet,delayed release (DR/EC) 40 mg PO QDAY Qty: 90 1RF Rx Instructions: take 30 minutes before breakfast Discontinued carvedilol 6.25 mg tablet 6.25 mg PO BID Qty: 60 11RF Rx Instructions: must administer with a meal/food: this is a dose increase Other Ambulatory Orders: Cardiac Holter Monitor, 48 Hrs (Routine) Timeframe: 2 Days Facility: [facility] - Location: Cardiovascular Services Ordered By: Dr. Adeel Villatoro Referrals / Follow Up: Nestor Salguero DO [Med Staff - Active Staff] - Within 1 Month Blanka Recio NP-C [Primary Care Provider] - Within 1 Week Disposition Disposition (needs filled in before D/C Order can be placed): Home, Self Care
[2025-04-25 14:32] VITALS: BP 139/73; PULSE 64; RESP 16; TEMP 36.7; O2SAT 98
--- NOTE | 2025-04-25 15:40 | PHA.DC.MC.R ---
Pharmacy [facility] Counseling Pharmacy Service has performed discharge medication reconciliation and counseling for this patient. 1. CYANOCOBALAMIN 1000MCG PO BREAKFAST 2. CARVEDILOL DECREASED TO 3.125MG BID The patient's discharge medication list was reviewed for discrepancies and discrepancies were resolved. The patient was counseled on the following discharge medications and changes in medications for homegoing were reviewed. The Reason for Use, instructions for use, and potential side effects were reviewed for all new medications. The patient's questions regarding all of their medications were answered. The patient was able to verbally demonstrate an understanding of their discharge medications. Medications at Discharge Home Medications citalopram 10 mg tablet 10 mg PO DAILY depression 03/01/24 alprazolam 0.5 mg tablet 1 mg PO BID anxiety 12/04/24 ondansetron HCl 4 mg tablet 4 mg PO .COMPLEX #5 tabs 02/13/25 pantoprazole 40 mg tablet,delayed release 40 mg PO QDAY #90 tabs 04/23/25 carvedilol 3.125 mg tablet (Coreg) 3.125 mg PO BID 30 days #60 tabs 04/25/25 cyanocobalamin (vitamin B-12) 500 mcg tablet 1,000 mcg (2 x 500 mcg) PO BREAKFAST 30 days #60 tabs 04/25/25
--- NOTE | 2025-04-25 16:17 | PCM.DC.SUM ---
Providers Date of Admission: 04/23/25 Primary Care Physician: CATRINA Mcmahan Reason For Visit: FREQUENT FALLS-NEAR SYNCOPE, FRACTURE HUMMERUS Diagnosis Discharge Diagnosis (1) Essential hypertension: Status: Chronic Code(s): I10 - Essential (primary) hypertension (2) Near syncope: Status: Acute Code(s): R55 - Syncope and collapse (3) Anemia: Status: Acute Code(s): D64.9 - Anemia, unspecified Medications at Discharge Home Medications citalopram 10 mg tablet 10 mg PO DAILY depression 03/01/24 alprazolam 0.5 mg tablet 1 mg PO BID anxiety 12/04/24 ondansetron HCl 4 mg tablet 4 mg PO .COMPLEX #5 tabs 02/13/25 pantoprazole 40 mg tablet,delayed release 40 mg PO QDAY #90 tabs 04/23/25 carvedilol 3.125 mg tablet (Coreg) 3.125 mg PO BID 30 days #60 tabs 04/25/25 cyanocobalamin (vitamin B-12) 500 mcg tablet 1,000 mcg (2 x 500 mcg) PO BREAKFAST 30 days #60 tabs 04/25/25 Hospital Course Operations None Procedures 2-D Echocardiogram Summary of Care Provided Minutes Spent on Discharge: 35 Hospital Course: Per HPI: ROSIE FRANCO, is a 64 F who presents to the emergency room with chief complaint of frequent falls. Patient has had a total of 9 falls in the last 3 weeks. Patient has reportedly had her blood pressure medication adjusted as an outpatient and since that time has had sudden dizziness and near syncope and has collapsed to the ground. Patient has hit her head at times and approximately 2 weeks ago she fell and injured her left upper arm. X-ray reveals a displaced proximal left humeral head fracture. X-ray of the left elbow was negative and C-spine and CT head are negative for acute fracture. Laboratory studies show a white blood cell count of 6.2, hemoglobin 9.3, hematocrit 25.4, platelets 173, sodium 135, potassium 4.3, chloride 100, bicarb 20.5, BUN 9, creatinine 1.3, glucose 96. Patient denies any chest pain, shortness of breath, fevers or chills, nausea vomiting or diarrhea and denies any melena or hematochezia. Left upper extremity has been placed in a sling and immobilized and I spoke with Dr. Young, orthopedic surgeon who recommended she follow-up with him as an outpatient upon discharge but there is no surgical intervention at this time. Patient will be admitted for near syncope with falling and echocardiogram and physical therapy consult obtained. Hospital Course: 1. Frequent falls with syncope and near syncope/essential HTN?64-year-old female presented to the hospital with frequent episodes of falls over the last 3 weeks. One of her falls 2 weeks ago caused a left humerus fracture that she is currently in a sling former follow-up with orthopedic surgery as an outpatient. She feels that it might be related to her blood pressure medications so she stopped taking it in the morning if her blood pressure was below a certain threshold. I did adjust her Coreg down to 3.125 mg p.o. twice daily which she seemed to be in agreement with. She did have an echocardiogram that demonstrated an EF of 60% and orthostatic vital signs were negative. She denied any prodromal like symptoms prior to her syncopal episodes so she was on telemetry which was negative. Will discharge her on 48-hour Holter monitor for further evaluation if this is negative she may benefit from 14-day or 30-day event monitor. 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 I discussed with her the plan for discharge and she expressed understanding of the risks and benefits of going home and would like to go home today. 2. Anemia?this is a macrocytic anemia at her folic acid was recently tested and that was normal so I did check a B12 and it was low normal at 48 so I decided to place her on vitamin B12. Iron panel showed anemia of chronic disease with a normal iron level and saturation. TIBC was low unsaturated IBC was low and her ferritin was elevated at 954. I did attempt to get a fecal occult however she does not have a bowel movement today and wanted to be discharged home so I do recommend outpatient follow-up. She does have a history of GERD so we will continue with her PPI. 3. Anxiety, depression her chronic medical conditions which complicate her care. Her home medications were continued where appropriate Weight / BMI Weight Weight: 139 lb 5.314 oz Body Mass Index (BMI) 25.4 ABG / Lab / Microbiology Data 04/25/25 06:36 04/25/25 06:36 Laboratory: Laboratory Results - last 24 hr 04/25/25 06:36: WBC 5.2, RBC 2.24 L, Hgb 9.2 L, Hct 25.4 L, MCV 113.4 H, MCH 41.1 H, MCHC 36.2 H, RDW Std Deviation 56.0 H, RDW Coeff of Dennis 13.6, Plt Count 154, MPV 8.9, Immature Gran % (Auto) 0.600, Neut % (Auto) 53.5, Lymph % (Auto) 37.6, [place] % (Auto) 5.2, Eos % (Auto) 2.7, Baso % (Auto) 0.4, Absolute Neuts (auto) 2.8, Absolute Lymphs (auto) 1.97, Nucleated RBC % 0, Sodium 134, Potassium 3.5, Chloride 102, Carbon Dioxide 21.3, Anion Gap 10, BUN 11, Creatinine 1.42 H, Estim Creat Clear Calc 34.51 L, Est GFR (MDRD) Non-Af 41 L, BUN/Creatinine Ratio 7.5 L, Glucose 122 H, Calcium 8.7, Iron 117, TIBC 236 L, Iron Saturation 49.6, Unsaturated IBC 119 L, Ferritin 954 H D/C Instructions Call your doctor if you observe: Fever of 101 or Higher, Shortness of breath, Dizziness, Fainting spells, Swelling in the ankles, Chest pain and Increased palpitations (irregular heartbeat) DC O2, CPAP, BIPAP Needs Home O2 Discharge instructions: No Meaningful Use Info Meaningful Use Meaningful Use Diagnoses (Choose all that apply): None applicable Discharge Plan Admission Admit Date/Time: 04/23/25 20:30 Attending Provider: Adeel Villatoro Primary Care Provider: Blanka Recio Consulting Providers: Haile Cesar Instructions Additional Instructions / Restrictions: You are anemic so I do recommend outpatient follow-up with your PCP to recheck blood work and also to follow-up with gastroenterology for evaluation. I did attempt to get a fecal occult blood sample on you however you did not have a bowel movement so I recommend GI follow-up for evaluation. Please return to the hospital if you do notice any blood in your stools. I did place you on vitamin B12 as this was low normal and based on your blood work it could be a cause of your anemia as well. Your iron levels were okay. Discharge Orders/Prescriptions Prescriptions: New cyanocobalamin (vitamin B-12) 500 mcg Tablet 1,000 mcg PO BREAKFAST 30 Days Qty: 60 0RF carvedilol [Coreg] 3.125 mg tablet 3.125 mg PO BID 30 Days Qty: 60 0RF Rx Instructions: must administer with a meal/food Continued citalopram 10 mg tablet 10 mg PO DAILY alprazolam 0.5 mg tablet 1 mg PO BID ondansetron HCl 4 mg tablet 4 mg PO .COMPLEX Qty: 5 0RF Rx Instructions: 4 mg orally; take two tablets PO two hours prior to start of bowel prep and one every 4 hours as needed for N/V pantoprazole 40 mg tablet,delayed release (DR/EC) 40 mg PO QDAY Qty: 90 1RF Rx Instructions: take 30 minutes before breakfast Discontinued carvedilol 6.25 mg tablet 6.25 mg PO BID Qty: 60 11RF Rx Instructions: must administer with a meal/food: this is a dose increase Other Ambulatory Orders: Cardiac Holter Monitor, 48 Hrs (Routine) Timeframe: 2 Days Facility: [facility] - Location: Cardiovascular Services Ordered By: Dr. Adeel Villatoro Referrals / Follow Up: Nestor Salguero DO [Med Staff - Active Staff] - Within 1 Month Blanka Recio NP-C [Primary Care Provider] - Within 1 Week Disposition Disposition (needs filled in before D/C Order can be placed): Home, Self Care Charges/Coding Visit Charges Inpatient E&M: 29261 Disch Hosp >30min
== END 2025-04-25 15:55 | disposition home or self-care (01) | DRG 312 ==
LOC: ED 20:24 → PCU 22:01
PROVIDERS: Admitting Provider Family Medicine; Emergency Provider Student in an Organized Health Care Education/Training Program; PCP Nurse Practitioner Family; Visit Provider Family Medicine
DX: R55 Syncope and collapse (principal); S42.202A Unspecified fracture of upper end of left humerus, initial encounter for closed fracture; D64.9 Anemia, unspecified; F32.A Depression, unspecified; F17.210 Nicotine dependence, cigarettes, uncomplicated; S40.022A Contusion of left upper arm, initial encounter; I10 Essential (primary) hypertension; K21.9 Gastro-esophageal reflux disease without esophagitis; F41.9 Anxiety disorder, unspecified; W19.XXXA Unspecified fall, initial encounter; Z82.49 Family history of ischemic heart disease and other diseases of the circulatory system; Z90.710 Acquired absence of both cervix and uterus; R29.6 Repeated falls; Z86.14 Personal history of Methicillin resistant Staphylococcus aureus infection
CPT/HCPCS: 36415; 70450; 71046; 72125; 73030; 73080; 80048; 82607; 82728; 83540; 83550; 85025; 93005; 93306; 97161; 99285; A4216

== ENCOUNTER → 2025-05-14 | Outpatient (CLI) | payer MEDICARE, SELFPAY ==
--- NOTE | 2025-05-14 14:55 | RAD_ITS ---
PROCEDURE: SHOULDER MIN 2 VIEWS 05/14/2025 REASON FOR EXAM: FX F/U TECHNIQUE: Procedure Code: RADSH Modality: DX Procedure: SHOULDER MIN 2 VIEWS Left shoulder four views COMPARISON: April 23, 2025 FINDINGS: There is a subcapital fracture of the left humeral head and neck junction, which appears unchanged. There is no definite bridging callus identified. There is no dislocation. Osteopenia is noted. Atherosclerotic aortic calcifications are visible. RAD/Shoulder min 2 Views IMPRESSION: There is a subcapital fracture of the left humeral head and neck junction, whic h appears unchanged. There is no definite bridging callus identified. Reading Location: [facility]
== END | disposition home or self-care (01) ==
PROVIDERS: PCP Nurse Practitioner Family; Referring Provider Nurse Practitioner Family; Visit Provider Nurse Practitioner Family
DX: S42.292A Other displaced fracture of upper end of left humerus, initial encounter for closed fracture (principal)
CPT/HCPCS: 73030

== ENCOUNTER 2025-05-24 13:32 | Emergency (ER) | payer MEDICARE, SELFPAY ==
[2025-05-24 13:32] VITALS: BP 141/74; PULSE 113; RESP 16; TEMP 36.8; O2SAT 98; BMI 24.8
--- NOTE | 2025-05-24 13:58 | ED.VIS.GI ---
HPI <Dr. Jose Bo DO - Last Filed: 05/24/25 16:51> HPI - GI History of Present Illness Chief Complaint: Nausea/Vomiting/Diarrhea Informant: patient Abdominal Pain/Flank Pain Onset: Days Context: Gradual Onset Timing: Continuous Quality: Cramping Location: Diffuse Worsened by: Nothing Relieved by: Nothing Nausea/Vomiting/Emesis GI Symptom: Positive for Nausea and Vomiting Diarrhea/Melena/Hematochezia GI Symptom: Positive for Diarrhea; Negative for Melena or Hematochezia Associated Symptoms Associated Symptoms: Positive for Frequency; Negative for Dysuria or Hematuria Narrative Narrative: Patient presents with abdominal pain, nausea, vomiting, and diarrhea that has been getting worse over the past 3 days. Patient states it is constant. Patient states she is unable to keep anything down. Patient states she has been unable to even keep water down. Patient states she called her primary care physician who referred her to the emergency department for possible dehydration. Patient denies any hematemesis or coffee-ground emesis. Patient denies any melena or hematochezia. Patient admits to some urinary frequency but denies any dysuria or hematuria. Patient admits to diffuse abdominal pain. Patient describes it as cramping. Patient states nothing makes it better and nothing makes it worse. Patient denies any fevers or chills. [facility] <Dr. Jose Bo DO - Last Filed: 05/24/25 16:51> [facility] Medical History Wears glasses Wears partial dentures Post-menopausal History of MRSA infection Alcohol use Easy bruising PONV (postoperative nausea and vomiting) History of diverticulitis Gastric reflux Shortness of breath on exertion Smoker Leg cramps History of edema Cardiology follow-up encounter History of echocardiogram History of stress test Endophthalmitis Hypertension Depression Essential hypertension Hx of fracture of clavicle Hypotension Fatigue Nicotine dependence Hemorrhoids SOB (shortness of breath) Swelling Infected puncture wound of finger Open wound of finger with complication Home Medications ?Medication ?Instructions ?Recorded ?Last Taken ?Type citalopram 10 mg tablet 10 mg PO DAILY depression 03/01/24 04/23/25 09:00 History 10 mg alprazolam 0.5 mg tablet 1 mg PO BID anxiety 12/04/24 04/23/25 09:00 History 1 mg ondansetron HCl 4 mg tablet 4 mg PO .COMPLEX #5 tabs 02/13/25 Unknown Rx pantoprazole 40 mg tablet,delayed 40 mg PO QDAY #90 tabs 04/23/25 04/23/25 09:00 Rx release 40 mg carvedilol 3.125 mg tablet (Coreg) 3.125 mg PO BID 30 days #60 tabs 04/25/25 Unknown Rx cyanocobalamin (vitamin B-12) 500 1,000 mcg (2 x 500 mcg) PO 04/25/25 Unknown Rx mcg tablet BREAKFAST 30 days #60 tabs meloxicam 7.5 mg tablet 7.5 - 15 mg (1 - 2 x 7.5 mg) PO 05/17/25 Unknown Rx QDAY #60 tabs cephalexin 500 mg capsule 500 mg PO Q12 #14 CAPSULES 05/24/25 Unknown Rx ondansetron 4 mg disintegrating 4 mg PO Q8H PRN PRN Nausea #10 tabs 05/24/25 Unknown Rx tablet Allergy/AdvReac Type Severity Reaction Status Date / Time Sulfa (Sulfonamide Allergy Rash Verified 05/24/25 13:36 Antibiotics) vaccine adjuvant system, Allergy Swelling Verified 05/24/25 13:36 [id number] liposomal Family History Father Heart disease Diabetes Hypertension Mother Thyroid disorder Hypertension Grandfather Cancer Kidney Black lung Grandmother Diabetes Alzheimer's dementia Surgical History History of colonoscopy History of surgery Hx of section Hx of hysterectomy Social History Smoking Status: Light Smoker (<10/day) quit status: considering quitting alcohol intake: current alcohol intake frequency: a few times a week Alcohol type: wine substance use type: does not use caffeine: Yes Type: coffee Number of servings: 1 ROS <Dr. Jose Bo, DO - Last Filed: 05/24/25 16:51> ROS ED Constitutional Constitutional ED: Denies chills or fever(s) Eyes Eyes: Denies blurry vision or change in vision ENT ENT ED: Denies rhinorrhea or sore throat Cardiovascular Cardiovascular: Denies chest pain or palpitations Respiratory/Chest Respiratory/Chest: Denies cough or dyspnea Gastrointestinal Gastrointestinal: Reports abdominal pain, diarrhea, nausea and vomiting; Denies melena Genitourinary Genitourinary ED: Reports urinary frequency; Denies dysuria or hematuria Musculoskeletal Musculoskeletal: Denies back pain or neck pain Integumentary Denies abscess or rash Neurologic Neurologic: Denies headache(s) or weakness Allergic/Immunologic Allergic/Immunologic ED: Denies mouth swelling or urticaria EXAM <Dr. Jose Bo, - Last Filed: 05/24/25 16:51> Physical Exam Const Vital Signs: 05/24/25 13:32 05/24/25 15:22 05/24/25 16:14 Temperature 98.2 F Temperature Source Oral Pulse Rate 113 H 100 Respiratory Rate 16 16 Blood Pressure 141/74 H 125/57 H 157/93 H Blood Pressure Mean 96 79 114 Pulse Ox 98 96 98 Oxygen Delivery Method Room Air Room Air Room Air Positive well nourished and well developed Constitutional Narrative: BMI is 24.8. General Appearance ED: well developed and NAD HEENT Reports moist mucous membranes Neck supple and no JVD Resp normal respiratory effort and clear to auscultation bilaterally Cardio regular rate and regular rhythm GI non-distended Palpation: soft and tender epigastric, LLQ, RLQ, LUQ, RUQ, periumbilical and suprapubic; Negative for guarding or rebound tenderness present Extremity full ROM General Extremety ED: Negative for edema or tenderness General Extremity: Negative for edema Neuro CN's II-XII intact bilaterally, moves all extremities and no sensory deficits noted Sensorium / Orientation: alert Motor Exam: strength 5/5 throughout Psych mental status grossly normal <Dr. Shea Ortega MD - Last Filed: 05/24/25 19:14> Physical Exam Const Vital Signs: 05/24/25 13:32 05/24/25 15:22 05/24/25 16:14 Temperature 98.2 F Temperature Source Oral Pulse Rate 113 H 100 Respiratory Rate 16 16 Blood Pressure 141/74 H 125/57 H 157/93 H Blood Pressure Mean 96 79 114 Pulse Ox 98 96 98 Oxygen Delivery Method Room Air Room Air Room Air MDM <Dr. Jose Bo, - Last Filed: 05/24/25 16:51> [facility] MDM Narrative Medical decision making narrative: Differential diagnosis includes bowel obstruction, perforation, electrolyte abnormality, viral illness, colitis, diverticulitis, and urinary tract infection. CBC will be obtained to assess for leukocytosis and anemia. Comprehensive metabolic profile will be obtained to assess for hepatic function, renal function, and electrolyte abnormality. Lipase will be obtained to assess for pancreatitis. Urinalysis will be obtained to assess for urinary tract infection and hematuria. CT scan of the abdomen and pelvis will be obtained to assess for bowel obstruction, perforation, pancreatitis, diverticulitis, and colitis. Lab Data Attestation: I reviewed the patient's lab results. Lab results narrative: CBC was reviewed. There is a mild anemia with a hemoglobin of 10.7 and hematocrit of 29.0. These are improved from previous results. Basic metabolic profile was reviewed. Creatinine was slightly elevated at 1.27. BUN was normal. Sodium was slightly low at 132 and chloride was slightly low at 95. Glucose was mildly elevated at 112. AST was 71 and ALT was 51. These are consistent with previous results. The remainder is essentially within normal limits. Lipase was reviewed and was normal at 75. Labs: Laboratory Results - last 24 hr 05/24/25 05/24/25 14:20 16:10 WBC 10.3 RBC 2.56 L Hgb 10.7 L Hct 29.0 L MCV 113.3 H MCH 41.8 H MCHC 36.9 H RDW Std Deviation 52.3 H RDW Coeff of Dennis 12.6 Plt Count 220 MPV 9.0 Immature Gran % (Auto) 0.300 Neut % (Auto) 50.9 Lymph % (Auto) 43.4 H Manati % (Auto) 3.9 Eos % (Auto) 1.2 Baso % (Auto) 0.3 Absolute Neuts (auto) 5.3 Absolute Lymphs (auto) 4.47 Nucleated RBC % 0 Sodium 132 L Potassium 4.3 Chloride 95 L Carbon Dioxide 22.1 Anion Gap 15 BUN 9 Creatinine 1.27 H Estim Creat Clear Calc 38.14 L Est GFR (MDRD) Non-Af 47 L BUN/Creatinine Ratio 6.8 L Glucose 112 H Calcium 9.9 Total Bilirubin 0.66 AST 71 H ALT 51 H Alkaline Phosphatase 86 Total Protein 6.8 Albumin 4.4 Globulin 2.4 Albumin/Globulin Ratio 1.9 Lipase 75 Urine Color Straw Urine Clarity Clear Urine pH 6.5 Ur Specific Julian 1.010 Urine Protein 15 H Urine Glucose (UA) Normal Urine Ketones Negative Urine Occult Blood 150 H Urine Nitrite Positive H Urine Bilirubin Negative Urine Urobilinogen Normal Ur Leukocyte Esterase 500 H Urine RBC 5-10 SEEN Urine WBC 25-50 SEEN Ur Squamous Epith Cells 0-5 SEEN Urine Bacteria 2+ Urine Mucus 0 SEEN Radiography Diagnostic Testing: Clinical Impression(s) from Imaging Studies Abdomen/Pelvis CT 05/24/25 14:00 IMPRESSION: Diffuse hepatic steatosis. Redemonstration of cystic lesion within left renal upper pole. Further correlation with MRI versus CT with renal protocol can be obtained as previously recommended. [id number] stool burden. Diffusely thick walled urinary bladder with mild surrounding stranding. Findings could be related to underlying cystitis. Reading Location: [facility] CT scan of the abdomen and pelvis was obtained. There is a moderate to large stool burden. There is diffusely thick urinary bladder with mild surrounding stranding. There is no free air or free fluid. There is no evidence of obstruction or perforation. This was interpreted by the radiologist was also independently reviewed by myself. Treatment and Re-Evaluation :: Patient was given IV fluids, morphine, and Zofran. Patient was feeling somewhat better on reevaluation. Patient was advised of her findings. Patient was given a prescription for Zofran. Care of the patient will be turned over to the oncoming physician pending urinalysis. If the urinalysis positive, patient will be given a prescription for antibiotics for urinary tract infection. Patient understood and was agreeable with the plan. All questions were answered. <Dr. Shea Ortega MD - Last Filed: 05/24/25 19:14> [facility] Lab Data Labs: Laboratory Results - last 24 hr 05/24/25 05/24/25 14:20 16:10 WBC 10.3 RBC 2.56 L Hgb 10.7 L Hct 29.0 L MCV 113.3 H MCH 41.8 H MCHC 36.9 H RDW Std Deviation 52.3 H RDW Coeff of Dennis 12.6 Plt Count 220 MPV 9.0 Immature Gran % (Auto) 0.300 Neut % (Auto) 50.9 Lymph % (Auto) 43.4 H [place] % (Auto) 3.9 Eos % (Auto) 1.2 Baso % (Auto) 0.3 Absolute Neuts (auto) 5.3 Absolute Lymphs (auto) 4.47 Nucleated RBC % 0 Sodium 132 L Potassium 4.3 Chloride 95 L Carbon Dioxide 22.1 Anion Gap 15 BUN 9 Creatinine 1.27 H Estim Creat Clear Calc 38.14 L Est GFR (MDRD) Non-Af 47 L BUN/Creatinine Ratio 6.8 L Glucose 112 H Calcium 9.9 Total Bilirubin 0.66 AST 71 H ALT 51 H Alkaline Phosphatase 86 Total Protein 6.8 Albumin 4.4 Globulin 2.4 Albumin/Globulin Ratio 1.9 Lipase 75 Urine Color Straw Urine Clarity Clear Urine pH 6.5 Ur Specific Julian 1.010 Urine Protein 15 H Urine Glucose (UA) Normal Urine Ketones Negative Urine Occult Blood 150 H Urine Nitrite Positive H Urine Bilirubin Negative Urine Urobilinogen Normal Ur Leukocyte Esterase 500 H Urine RBC 5-10 SEEN Urine WBC 25-50 SEEN Ur Squamous Epith Cells 0-5 SEEN Urine Bacteria 2+ Urine Mucus 0 SEEN Radiography Diagnostic Testing: Clinical Impression(s) from Imaging Studies Abdomen/Pelvis CT 05/24/25 14:00 IMPRESSION: Diffuse hepatic steatosis. Redemonstration of cystic lesion within left renal upper pole. Further correlation with MRI versus CT with renal protocol can be obtained as previously recommended. Fvvqovsu-[id number] stool burden. Diffusely thick walled urinary bladder with mild surrounding stranding. Findings could be related to underlying cystitis. Reading Location: [facility] Treatment and Re-Evaluation :: Patient was given IV fluids, morphine, and Zofran. Patient was feeling somewhat better on reevaluation. Patient was advised of her findings. Patient was given a prescription for Zofran. Care of the patient will be turned over to the oncoming physician pending urinalysis. If the urinalysis positive, patient will be given a prescription for antibiotics for urinary tract infection. Patient understood and was agreeable with the plan. All questions were answered. Patient signed out to me by Dr. Bo pending urinalysis. Urinalysis positive for UTI. Urine culture sent. Patient given first dose of antibiotics here and additional prescription sent to pharmacy. Patient updated on the findings. Patient discharged from the Emergency Department. I do not feel that the patient's evaluation reveals any acute reason for admission at this time. I instructed them to either follow-up with their primary care physician or promptly return to the Emergency Department for reevaluation should symptoms worsen or new symptoms develop. I explained what symptoms would indicate the need to return to the emergency department. Shared decision making was used. The patient voiced understanding of the treatment plan and is agreeable with it. Discharge Plan Triage Chief Complaint: Nausea/Vomiting/Diarrhea ED Provider: Jose Bo Dx/Rx/DC Orders Clinical Impression: Nausea, vomiting, and diarrhea, Abdominal pain, Tobacco dependence, Acute UTI Instructions: UTIs, ED Vomiting (Adult) Prescriptions: New ondansetron 4 mg tablet,disintegrating 4 mg PO Q8H PRN PRN (Reason: Nausea) Qty: 10 0RF cephalexin 500 mg capsule 500 mg PO Q12 Qty: 14 0RF No Action citalopram 10 mg tablet 10 mg PO DAILY alprazolam 0.5 mg tablet 1 mg PO BID meloxicam 7.5 mg tablet 7.5 - 15 mg PO QDAY Qty: 60 1RF Rx Instructions: Take once daily with food. Avoid use of other NSAIDs while taking this medication. cyanocobalamin (vitamin B-12) 500 mcg Tablet 1,000 mcg PO BREAKFAST 30 Days Qty: 60 0RF carvedilol [Coreg] 3.125 mg tablet 3.125 mg PO BID 30 Days Qty: 60 0RF Rx Instructions: must administer with a meal/food ondansetron HCl 4 mg tablet 4 mg PO .COMPLEX Qty: 5 0RF Rx Instructions: 4 mg orally; take two tablets PO two hours prior to start of bowel prep and one every 4 hours as needed for N/V pantoprazole 40 mg tablet,delayed release (DR/EC) 40 mg PO QDAY Qty: 90 1RF Rx Instructions: take 30 minutes before breakfast Primary Care Provider: Blanka Recio Referrals: Blanka Recio, [facility] [Primary Care Provider, Family Practice] - 5-7 Days Activity Restrictions/Additional Instructions: Take antibiotic as prescribed. Your evaluation in the Emergency Department did not reveal any acute reason for admission. However, I want to emphasize that you may be early in the course of a disease process or illness even if it is not present. For this reason you should follow-up within 24 hours for reevaluation with either your primary care physician or if necessary back here in the Emergency Department. You should return to the Emergency Department immediately if your symptoms worsen or new symptoms develop. Print Language: Spanish Disposition Disposition: Home, Self Care
--- NOTE | 2025-05-24 14:00 | CT_ITS ---
PROCEDURE: ABDOMEN/PELVIS W IV CONT ONLY 05/24/2025 REASON FOR EXAM: ABDOMINAL PAIN TECHNIQUE: Procedure Code: [id number] Modality: CT Procedure: ABDOMEN/PELVIS W IV CONT ONLY Coronal and Sagittal reconstruction series were provided. CONTRAST: Isovue 300 VOLUME: 90 mL One or more dose reduction techniques were used (e.g., Automated exposure control, adjustment of the mA and/or kV according to patient size, use of iterative reconstruction technique. RADIATION DOSE SUMMARY: CTDlvol: 8.7 mGy DLP: 404 mGycm COMPARISON: CT abdomen and pelvis with contrast 11/24/2024. FINDINGS: Lung bases: Mild dependent atelectasis Liver: Diffuse fatty infiltration. Gallbladder: Distended gallbladder without definite evidence of inflammatory changes. Spleen: Normal size. Pancreas: Normal size without evidence of mass surrounding inflammation or ductal dilation. Adrenals: Unremarkable bilateral adrenal glands. Kidneys: Normal renal sizes. No hydronephrosis. Hypodense right upper pole lesion measuring 1.4 cm. Redemonstration of cystic lesion within left upper pole measuring 1.9 cm. Bladder: Thick walled bladder distended with urine. Reproductive Organs: Prior hysterectomy. Adnexal regions are unremarkable. Bowel: Colonic diverticulosis without evidence of diverticulitis. Moderate stool burden. Appendix: The appendix is not identified. There is no inflammatory process identified in the right lower quadrant to suggest appendicitis. Lymph nodes: Scattered mesenteric and pelvic lymph nodes. Vasculature: Atherosclerotic calcification of abdominal aorta and its branches. Peritoneum / Retroperitoneum: Unremarkable Bones: Age-related degenerative changes. CT/Abdomen/Pelvis W IV Cont ONLY IMPRESSION: Diffuse hepatic steatosis. Redemonstration of cystic lesion within left renal upper pole. Further correla tion with MRI versus CT with renal protocol can be obtained as previously recommended. Ubfmjydt-[id number]-auknk stool burden. Diffusely thick walled urinary bladder with mild surrounding stranding. Findin gs could be related to underlying cystitis. Reading Location: [id number]
[2025-05-24] MEDS: 0.9% Normal Saline (1000mL) 1,000 ML 999 ML IV (14:30)
[2025-05-24 14:38] LABS: Hematocrit 29.0 % (37-47); Hemoglobin 10.7 g/dL (12.0-15.0); Immature Granulocytes Count 0.030 X10^3/uL (0.0-0.0); Mean Corp Hgb Conc 36.9 g/dL (32-36); Mean Corpuscular Volume 113.3 fL (81-99); Mean Platelet Vol. 9.0 fl (6.2-12.0); NRBC Flagged by Analyzer 0 % (0-5); Platelet Count 220 K/mm3 (150-450); RBC Distribution Width CV 12.6 % (11.6-14.6); RBC Distribution Width SD 52.3 fl (35.1-43.9); Red Blood Count 2.56 M/mm3 (4.2-5.4); White Blood Count 10.3 K/mm3 (4.4-11.0)
[2025-05-24 15:09] LABS: AST(SGOT) 71 U/L (<=31); Alanine Aminotransfer ALT/SGPT 51 U/L (<=34); Albumin, Serum 4.4 g/dL (3.4-4.8); Alkaline Phosphatase 86 U/L (35-104); Anion Gap 15 (5-15); BUN 9 mg/dL (4-19); BUN/Creat Ratio 6.8 RATIO (10-20); Calcium,Total 9.9 mg/dL (7.6-11.0); Carbon Dioxide 22.1 mmol/L (21.0-32.0); Chloride 95 mmol/L (98-108); Estimated Creatinine Clearance 38.14 ml/min (50-250); Globulin 2.4 g/dL (2.2-4.2); Glucose 112 mg/dL (70-99); Lipase 75 U/L (13-75); Potassium 4.3 mmol/L (3.3-5.1)
[2025-05-24 15:22] VITALS: BP 125/57; PULSE 100; RESP 16; O2SAT 96
[2025-05-24 16:14] VITALS: BP 157/93; O2SAT 98
[2025-05-24 16:16] LABS: Mucous, Urine 0 SEEN /hpf (<or=2+)
[2025-05-24 17:12] LABS: Color, Urine Straw (Yellow); Glucose, Dipstick Normal (Normal); Ketone-Dipstick Negative (Negative); Leukocyte Esterase-Dipstick 500 /ul (Negative); Nitrite-Dipstick Positive (Negative); Occult Blood-Urine 150 /ul (Negative); Protein-Dipstick 15 mg/dl (Negative); Specific Gravity, Urine 1.010 (1.002-1.030); Urine Bilirubin Dipstick Negative (Negative)
[2025-05-24 18:05] LABS: Red Blood Cells-Urine 5-10 SEEN /hpf (0-5)
[2025-05-24 18:06] LABS: Squamous Epithelial Cells - UA 0-5 SEEN /hpf (5-10)
== END 2025-05-24 19:21 | disposition home or self-care (01) ==
PROVIDERS: Emergency Provider Emergency Medicine; PCP Nurse Practitioner Family; Visit Provider Emergency Medicine
DX: R11.2 Nausea with vomiting, unspecified (principal); Z90.710 Acquired absence of both cervix and uterus; R19.7 Diarrhea, unspecified; N39.0 Urinary tract infection, site not specified; I10 Essential (primary) hypertension; R10.9 Unspecified abdominal pain; F32.A Depression, unspecified; Z79.899 Other long term (current) drug therapy; K21.9 Gastro-esophageal reflux disease without esophagitis; F17.200 Nicotine dependence, unspecified, uncomplicated
CPT/HCPCS: 74177; 80053; 81001; 83690; 85025; 87077; 87086; 87088; 87186; 96361; 96374; 96375; 99284; Q9967; A4216; J2405

== ENCOUNTER 2025-06-14 11:21 | Outpatient (RCR) | payer MEDICARE, SELFPAY ==
--- NOTE | 2025-06-14 13:17 | HP.PTEVAL ---
Patient's Visit Information Visit Information Visit Information: ROSIE FRANCO is a 64 year old F referred to Physical Therapy by CATRINA Marquez with a diagnosis of Other displaced frcture of upper end of left humerus. Date of Evaluation: 06/14/25 Physical Therapist: Beltran Abreu, PT, Cert MDT, OCS Visit Plan Frequency: 2x /Week Duration: 8 WEEKS Plan: Displaced, angulated fracture of the proximal humeral shaft Healing slowly ,trying conservative tx PT INTERVENTIONS PROM/AAROM SHOULDER ,MANUAL THERAPY , CP/MHP AND STRENGTHENING PER MD Subjective Subjective: This 64 y/o female presents to physical therapy with displaced fracture of humeral . Patient on 04/23 syncope episode and caused fracture ,went t ER following week x-rays showed Displaced, angulated fracture of the proximal humeral shaft. Also had had brain MRI and CT scan .Seen [facility] consulted with DR Estevez and sandy to start Pt for ROM ,. Patient did have repeat x-rays Healing fracture deformity of the humeral neck, Wants to do conservative treatment . Plan to have bone density test. no Medication. F/U DR in 4 weeks. Patient has global pain to elbow and bruising . Patient unable to do ADLS and self hygiene ,unable cook ,clean drive. Patient denies paresthesia/tingling. Pain affects sleeping. Patient sees press washer because of syncope episode. Patient condition affects QOL and function/ADLS' . Patient goals to return function of arm SOCIAL: VOCATION: RETIRED Pain Left Shoulder: Pain Intensity (Out of 10): 5 Pain Intensity Range: 10 Objective Objective: POSTURE: rounded shoulders head forward OBSERVATION: ecchymosis shoulder arm NEURO: denies paresthesia/tingling PROM: shoulder flexion 95 ,abduction 90 degrees,ER 50 degrees AROM: shoulder unable ,elbow 5-120 degrees MMT: ( peak force) 0 Balance/Special Test Scores Quick DASH Score: 75.0000 Goals Goal 1:: Patient to be I with HEP for shoulder ROM Goal Time Frame: 6-8 Weeks Goal 2:: Patient to improve PROM shoulder flexion 130 degrees ,abduction 130 degrees ,ER 80 degrees(STG) Goal Time Frame: 4-6 Weeks Goal 3:: Patient to improve AROM shoulder flexion/abduction 120 degrees for reaching in cupboard and IR L1 to put on coat Goal Time Frame: 8-12 Weeks Goal 4:: Patient to improve peak force RTC/deltoid by 5-10# to improve function and ADLS Goal Time Frame: 8-12 Weeks Goal 5:: Patient kana improve quick dash by 5 points to improve QOL and function Goal Time Frame: 8-12 Weeks Rehabilitation Potential Physical Therapy Diagnosis: This 64 y/o female presents to physical therapy with Displaced, angulated fracture of the proximal humeral shaft with pain ,poor ROM ,no strength impairs alls ADLS and self hygiene thus benefit from skilled PT Rehabilitation Potential: Good Anticipated Interventions Patient/Client Instruction: Educate patient on: Condition and Plan of Care For the Purpose of:: To decrease pain, To increase ROM, To improve muscle performance and motor function, To improve ability to perform ADL's, To increase tolerance to activity/condition/position, To improve performance and independence with ADL's, To improve ability of physical actions for home/community/work/leisure, To improve health of tissue, To decrease soft tissue restriction, To increase flexibility/ROM, To assume or resume ADL's and To improve tolerance to ADL's Therapeutic Exercise to Include: Strength training, Passive ROM and Active ROM Comment: ARVIN .STRENGTHENING PER MD ORDER For the Purpose of:: To decrease pain, To increase ROM, To improve muscle performance and motor function, To improve ability to perform ADL's, To increase tolerance to activity/condition/position, To improve ability of physical actions for home/community/work/leisure, To improve health of tissue, To decrease soft tissue restriction, To increase flexibility/ROM and To improve tolerance to ADL's Manual Therapy Techniques to Include: Passive ROM Comment: SHOULDER For the Purpose of:: To decrease pain, To increase ROM, To improve nutrient delivery to tissue, To increase oxygenation perfusion, To improve health of tissue, To decrease soft tissue restriction and To increase flexibility/ROM Text: Thank you for the opportunity to evaluate your patient. For Medicare and Medicare HMO plans, please review the plan of care and approve it. It will need to be FAXED BACK to us at [phone] for Medicare purposes. For Medicare only, by signing this I certify the plan of care. Please let me know if there are questions or concerns regarding this plan of care. Physician Signature: Date:
== END 2025-06-14 19:00 | disposition home or self-care (01) ==
LOC: PT 11:21
PROVIDERS: PCP Nurse Practitioner Family; Referring Provider Nurse Practitioner Family; Visit Provider Nurse Practitioner Family
DX: S42.292D Other displaced fracture of upper end of left humerus, subsequent encounter for fracture with routine healing (principal)
CPT/HCPCS: 97140; 97162

== ENCOUNTER 2025-06-19 07:31 | Emergency (ER) | payer MEDICARE, SELFPAY ==
[2025-06-19 07:33] VITALS: BP 155/81; PULSE 104; RESP 18; TEMP 37; O2SAT 95; BMI 23.9
--- NOTE | 2025-06-19 07:46 | CT_ITS ---
PROCEDURE: ABDOMEN/PELVIS W IV CONT ONLY 06/19/2025 REASON FOR EXAM: NAUSEA, VOMITING, DIARRHEA TECHNIQUE: Procedure Code: [id number] Modality: CT Procedure: ABDOMEN/PELVIS W IV CONT ONLY Coronal and Sagittal reconstruction series were provided. CONTRAST: VOLUME: mL One or more dose reduction techniques were used (e.g., Automated exposure control, adjustment of the mA and/or kV according to patient size, use of iterative reconstruction technique. COMPARISON: 05/24/2025. FINDINGS: The visualized lung bases are clear. The gallbladder, pancreas, spleen, adrenal glands, and urinary bladder appear unremarkable. Small cortical cysts are seen within both kidneys. Mild fatty liver. Hysterectomy. No evidence of a bowel obstruction. Mild wall thickening of the colon concerning for mild colitis. Several diverticula are noted within the sigmoid colon without adjacent inflammatory changes to suggest diverticulitis. The appendix is visualized and unremarkable. No intraperitoneal free air or free fluid. Mild atherosclerotic calcifications, unchanged. No abdominal nor pelvic lymphadenopathy. No acute osseous abnormality. No acute fracture. Stable nonacute anterior compression fracture of the T12 vertebral body, unchanged. CT/Abdomen/Pelvis W IV Cont ONLY IMPRESSION: 1. Mild wall thickening of the colon, similar to the previous study and concer jose guadalupe for mild colitis. 2. Additional nonacute findings, as described above. 3. Stable nonacute anterior wedge compression fracture of T12. Reading Location: [id number]
--- NOTE | 2025-06-19 07:47 | EDS_ITS ---
HPI HPI - GI History of Present Illness Chief Complaint: Nausea/Vomiting/Diarrhea Narrative Narrative: 64-year-old female past medical history of hypertension, depression and anxiety, GERD presents with nausea, vomiting, and diarrhea that she has had for the last 3 days. She had a similar episode of this approximately 1 month ago when she was diagnosed with a UTI. She states she is unable to take her medications at home as she continues to vomit them up. She denies any hematemesis, or blood in her stool. Over the last 24 hours she has had 6 episodes of diarrhea, and a few episodes of vomiting. She states it started with the diarrhea. She denies any fevers or chills, but feels shaky and weak. No exacerbating or alleviating factors. [facility] Medical History Cirrhosis GERD (gastroesophageal reflux disease) Wears glasses Wears partial dentures Post-menopausal History of MRSA infection Alcohol use Easy bruising PONV (postoperative nausea and vomiting) History of diverticulitis Gastric reflux Shortness of breath on exertion Smoker Leg cramps History of edema Cardiology follow-up encounter History of echocardiogram History of stress test Endophthalmitis Hypertension Depression Essential hypertension Hx of fracture of clavicle Hypotension Fatigue Nicotine dependence Hemorrhoids SOB (shortness of breath) Swelling Infected puncture wound of finger Open wound of finger with complication Home Medications ?Medication ?Instructions ?Recorded ?Last Taken ?Type citalopram 10 mg tablet 10 mg PO DAILY depression 04/23/25 09:00 History 10 mg alprazolam 0.5 mg tablet 1 mg PO BID anxiety 12/04/24 04/23/25 09:00 History 1 mg ondansetron HCl 4 mg tablet 4 mg PO .COMPLEX #5 tabs 0 02/13/25 Unknown Rx pantoprazole 40 mg tablet,delayed 40 mg PO QDAY #90 ta bs 04/23/25 04/23/25 09:00 Rx release 40 mg carvedilol 3.125 mg tablet (Coreg) 3.125 mg PO BID 30 days #60 tabs 04/25/25 Unknown Rx cyanocobalamin (vitamin B-12) 500 1,000 mcg (2 x 500 m cg) PO 04/25/25 Unknown Rx mcg tablet BREAKFAST 30 days #60 tabs meloxicam 7.5 mg tablet 7.5 - 15 mg (1 - 2 x 7.5 mg) PO 05/17/25 Unknown Rx QDAY #60 tabs cephalexin 500 mg capsule 500 mg PO Q12 #14 CAPSULES 0 05/24/25 Unknown Rx ondansetron 4 mg disintegrating 4 mg PO Q8H PRN PRN Na usea #10 tabs 05/24/25 Unknown Rx tablet cefdinir 300 mg capsule 300 mg PO BID 7 days #14 cap s 06/19/25 Unknown Rx metronidazole 500 mg tablet 500 mg PO Q8H 7 days #21 t abs 06/19/25 Unknown Rx ondansetron 4 mg disintegrating 4 mg PO Q8H PRN PRN Na usea #10 tabs 06/19/25 Unknown Rx tablet Allergy/AdvReac Type Severity Reaction Status Date / Time Sulfa (Sulfonamide Allergy Rash Verified 06/19/25 07:32 Antibiotics) vaccine adjuvant system, Allergy Swelling Verified 06/19/25 07:32 [id number] liposomal Family History Father Heart disease Diabetes Hypertension Mother Thyroid disorder Hypertension Grandfather Cancer Kidney Black lung Grandmother Diabetes Alzheimer's dementia Surgical History History of colonoscopy History of surgery Hx of section Hx of hysterectomy Social History Smoking Status: Light Smoker (<10/day) quit status: considering quitting alcohol intake: current alcohol intake frequency: a few times a week Alcohol type: wine substance use type: does not use caffeine: Yes Type: coffee Number of servings: 1 ROS ROS ED ROS Narrative Review of systems positive for generalized weakness, and shakiness. Positive nausea and vomiting without hematemesis. Multiple episodes of loose watery stool, no hematochezia or melena. Positive diffuse abdominal pain, crampy in nature. No exacerbating or alleviating factors. Unable to take her oral medications. EXAM Physical Exam Narrative Exam Narrative: Afebrile. Vital signs noted. Nontoxic-appearing. Cardiovascular examination reveals mild tachycardia. Lungs are clear to auscultation bilaterally. Abdomen is soft with minimal diffuse tenderness to palpation without guarding or rebound. Positive bowel sounds. Neurological examination nonfocal, nonlateralizing, ambulatory, moves all extremities. Able to transfer to cot independently. No noted pedal edema. Moist mucous membranes. Const Vital Signs: 06/19/25 07:33 06/19/25 09:27 Temperature 98.6 F Temperature Source Oral Pulse Rate 104 H 98 Respiratory Rate 18 18 Blood Pressure 155/81 H 155/76 H Blood Pressure Mean 105 102 Pulse Ox 95 97 Oxygen Delivery Method Room Air Room Air MDM MDM MDM Narrative Medical decision making narrative: Differential diagnosis includes but not limited to pancreatitis versus gastroenteritis versus diverticulitis versus dehydration versus other electrolyte abnormality. I reviewed the patient's prior EMR and prior ED visit. She was seen approximately 1 month ago for the same thing and diagnosed with a UTI. Her CT scan was consistent with cystitis at that time as well. Patient states she finished all of her antibiotics. She will be bolused normal saline 1 L intravenously and administered ondansetron. CBC, CMP, lipase will be checked to help rule out dehydration and pancreatitis. I will obtain a UTI again to make sure that she does not have a cystitis. I reviewed her laboratory work and she has slightly elevated white count of 12.3 which I think is nonspecific, hemoglobin 12.4, platelet count normal at 230. Electrolyte panel shows sodium low at 132, but when compared to prior from a few weeks ago, it is the same. Chloride slightly low at 94. BUN 14 and creatinine 1.15. LFTs are slightly elevated at 45 AST and an ALT of 37 which I think is nonspecific. She has a normal total bilirubin of 0.70. Lipase normal at 51. I do not think that she has a acute pancreatitis. While urinalysis shows 25-50 WBCs, she is positive for nitrites, and additionally there are squamous epithelial cells. Urine was sent for culture. I reviewed the radiology report of the CT of the abdomen and pelvis. It shows colitis. While the radiologist comments that there is thickened colonic wall and no obstruction, and states that it is similar to previous although this was not mentioned in the other report all on my review. I do feel that she would need to be treated as an infectious colitis as she states she is having diarrhea as well as nausea and vomiting. She will be given a p.o. challenge. I will start her on cefdinir and Flagyl which should take care of any UTI as well. If she is unable to pass a p.o. challenge, then I do feel that she would require observation. Upon repeat examination at approximately 11:30 AM, she is resting comfortably on the cot. She was able to take her oral medications in the form of antibiotics. I feel she can be discharged to follow-up. I will write her prescriptions for Flagyl, cefdinir, and a few Zofran ODT's. She states she already sees a plastic cutter. She should follow-up with them regarding her colitis. Return instructions to the emergency department were reviewed. Disposition is discharged home, in stable condition. History & Record Review Discussion w/independent historian: Patient Additional record(s) reviewed:: Prior ED visit and Prior labs Lab Data Attestation: I reviewed the patient's lab results. Labs: Laboratory Results - last 24 hr 06/19/25 06/19/25 07:55 10:10 WBC 12.3 H RBC 2.95 L Hgb 12.4 Hct 34.1 L MCV 115.6 H MCH 42.0 H MCHC 36.4 H RDW Std Deviation 49.4 H RDW Coeff of [place] 11.7 Plt Count 230 MPV 8.9 Immature Gran % (Auto) 0.200 Neut % (Auto) 44.3 L Lymph % (Auto) 51.8 H [place] % (Auto) 3.2 Eos % (Auto) 0.2 Baso % (Auto) 0.3 Absolute Neuts (auto) 5.5 Absolute Lymphs (auto) 6.37 H Nucleated RBC % 0 Diff Path Review May foll Sodium 132 L Potassium 4.1 Chloride 94 L Carbon Dioxide 23.9 Anion Gap 14 BUN 14 Creatinine 1.15 Estim Creat Clear Calc 38.57 L Est GFR (MDRD) Non-Af 53 L BUN/Creatinine Ratio 11.8 Glucose 146 H Calcium 10.3 Total Bilirubin 0.70 AST 45 H ALT 37 H Alkaline Phosphatase 80 Total Protein 7.0 Albumin 4.4 Globulin 2.6 Albumin/Globulin Ratio 1.7 Lipase 51 Urine Color Yellow Urine Clarity Sl. Cloudy Urine pH 7.0 Ur Specific [place] 1.005 Urine Protein 15 H Urine Glucose (UA) Normal Urine Ketones 5 H Urine Occult Blood 25 H Urine Nitrite Positive H Urine Bilirubin Negative Urine Urobilinogen Normal Ur Leukocyte Esterase 100 H Urine RBC 0 SEEN Urine WBC 25-50 SEEN Ur Squamous Epith Cells 5-10 SEEN Urine Bacteria RARE Urine Mucus 0 SEEN Radiography Diagnostic Testing: Clinical Impression(s) from Imaging Studies Abdomen/Pelvis CT 06/19/25 07:46 IMPRESSION: 1. Mild wall thickening of the colon, similar to the previous study and concerning for mild colitis. 2. Additional nonacute findings, as described above. 3. Stable nonacute anterior wedge compression fracture of T12. Reading Location: [facility] Discharge Plan Triage Chief Complaint: Nausea/Vomiting/Diarrhea ED Provider: Bacilio White Dx/Rx/DC Orders Clinical Impression: Colitis, Nausea, vomiting, and diarrhea, Hyponatremia, UTI (urinary tract infection) Instructions: ED Understanding Colitis, ED Diarrhea, Unknown Cause, ED Hyponatremia Prescriptions: New cefdinir 300 mg capsule 300 mg PO BID 7 Days Qty: 14 0RF metronidazole 500 mg tablet 500 mg PO Q8H 7 Days Qty: 21 0RF ondansetron 4 mg tablet,disintegrating 4 mg PO Q8H PRN PRN (Reason: Nausea) Qty: 10 0RF No Action citalopram 10 mg tablet 10 mg PO DAILY alprazolam 0.5 mg tablet 1 mg PO BID meloxicam 7.5 mg tablet 7.5 - 15 mg PO QDAY Qty: 60 1RF Rx Instructions: Take once daily with food. Avoid use of other NSAIDs while taking this me dication. cyanocobalamin (vitamin B-12) 500 mcg Tablet 1,000 mcg PO BREAKFAST 30 Days Qty: 60 0RF carvedilol [Coreg] 3.125 mg tablet 3.125 mg PO BID 30 Days Qty: 60 0RF Rx Instructions: must administer with a meal/food ondansetron 4 mg tablet,disintegrating 4 mg PO Q8H PRN PRN (Reason: Nausea) Qty: 10 0RF cephalexin 500 mg capsule 500 mg PO Q12 Qty: 14 0RF ondansetron HCl 4 mg tablet 4 mg PO .COMPLEX Qty: 5 0RF Rx Instructions: 4 mg orally; take two tablets PO two hours prior to start of bowel prep and one every 4 hours as needed for N/V pantoprazole 40 mg tablet,delayed release (DR/EC) 40 mg PO QDAY Qty: 90 1RF Rx Instructions: take 30 minutes before breakfast Primary Care Provider: Blanka Recio Referrals: Blanka Recio, [email or web address] [Primary Care Provider, Family Practice] - 3-5 Days Activity Restrictions/Additional Instructions: Follow-up with your plastic cutter, Dr. Neves, in 3 to 5 days if not improving. Finish all the antibiotics. Do not drink alcohol while taking metronidazole. Return to the emergency department with fever, new or worsening symptoms including increased pain. Print Language: Swedish Disposition Disposition: Home, Self Care
[2025-06-19] MEDS: 0.9% Normal Saline (1000mL) 1,000 ML 999 ML IV (07:52)
[2025-06-19 08:03] LABS: Hematocrit 34.1 % (37-47); Hemoglobin 12.4 g/dL (12.0-15.0); Immature Granulocytes Count 0.020 X10^3/uL (0.0-0.0); Mean Corp Hgb Conc 36.4 g/dL (32-36); Mean Corpuscular Volume 115.6 fL (81-99); Mean Platelet Vol. 8.9 fl (6.2-12.0); NRBC Flagged by Analyzer 0 % (0-5); POSITIVE DIFFERENTIAL YES; Platelet Count 230 K/mm3 (150-450); RBC Distribution Width CV 11.7 % (11.6-14.6); RBC Distribution Width SD 49.4 fl (35.1-43.9); Red Blood Count 2.95 M/mm3 (4.2-5.4); White Blood Count 12.3 K/mm3 (4.4-11.0)
[2025-06-19 08:11] LABS: Differential Indicated SCAN CRITERIA MET
[2025-06-19 08:23] LABS: AST(SGOT) 45 U/L (<=31); Alanine Aminotransfer ALT/SGPT 37 U/L (<=34); Albumin, Serum 4.4 g/dL (3.4-4.8); Alkaline Phosphatase 80 U/L (35-104); Anion Gap 14 (5-15); BUN 14 mg/dL (4-19); BUN/Creat Ratio 11.8 RATIO (10-20); Calcium,Total 10.3 mg/dL (7.6-11.0); Carbon Dioxide 23.9 mmol/L (21.0-32.0); Chloride 94 mmol/L (98-108); Estimated Creatinine Clearance 38.57 ml/min (50-250); Globulin 2.6 g/dL (2.2-4.2); Glucose 146 mg/dL (70-99); Lipase 51 U/L (13-75); Potassium 4.1 mmol/L (3.3-5.1)
[2025-06-19 09:27] VITALS: BP 155/76; PULSE 98; RESP 18; O2SAT 97
[2025-06-19 10:19] LABS: Mucous, Urine 0 SEEN /hpf (<or=2+); Red Blood Cells-Urine 0 SEEN /hpf (0-5)
[2025-06-19 10:21] LABS: Color, Urine Yellow (Yellow); Glucose, Dipstick Normal (Normal); Ketone-Dipstick 5 mg/dl (Negative); Leukocyte Esterase-Dipstick 100 /ul (Negative); Nitrite-Dipstick Positive (Negative); Occult Blood-Urine 25 /ul (Negative); Protein-Dipstick 15 mg/dl (Negative); Specific Gravity, Urine 1.005 (1.002-1.030); Urine Bilirubin Dipstick Negative (Negative)
[2025-06-19 10:30] LABS: Squamous Epithelial Cells - UA 5-10 SEEN /hpf (5-10)
[2025-06-19 11:41] VITALS: BP 145/80; PULSE 86; RESP 18; TEMP 37.5; O2SAT 97
== END 2025-06-19 11:49 | disposition home or self-care (01) ==
PROVIDERS: Emergency Provider Emergency Medicine; PCP Nurse Practitioner Family; Visit Provider Emergency Medicine
DX: R11.2 Nausea with vomiting, unspecified (principal); N39.0 Urinary tract infection, site not specified; I10 Essential (primary) hypertension; F41.9 Anxiety disorder, unspecified; Z90.710 Acquired absence of both cervix and uterus; K52.9 Noninfective gastroenteritis and colitis, unspecified; E87.1 Hypo-osmolality and hyponatremia; F32.A Depression, unspecified; Z79.899 Other long term (current) drug therapy; K21.9 Gastro-esophageal reflux disease without esophagitis
CPT/HCPCS: 74177; 80053; 81001; 83690; 85025; 87086; 87088; 87186; 96361; 96374; 99284; Q9967; A4216; J2405